=== PATIENT | male | born 1950 | race Caucasian/White ===

== ENCOUNTER → 2021-11-08 | Outpatient (CLI) | payer MEDICARE, OTHER ==
[~2021-11-08] VITALS: Ht 175.3 cm; Wt 93.6 kg
== END ==
LOC: PREOP 11:18
PROVIDERS: ATTEND Surgery
DX: Z01.818 Encounter for other preprocedural examination (principal)

== ENCOUNTER 2021-11-16 06:54 | Day surgery (SDC) | payer MEDICARE, OTHER ==
[~2021-11-16] VITALS: Ht 175 cm; Wt 93.6 kg
[2021-11-16] VITALS (11 sets, daily range): BP systolic 106–153; BP diastolic 63–82
[2021-11-16] MEDS ORDERED: ceFAZolin 2 GM IV Premixed 50 ML IV ONE (07:30)
[2021-11-16] MEDS: LACTATED RINGERS 1,000 ML IV PRN ×2 (07:47→09:02)
--- NOTE | 2021-11-16 07:47 | Progress Note-Pre Operative ---
Pre-Operative Progress Note H&P Reviewed The H&P was reviewed, patient examined and no changes noted. Date Seen by Provider: Nov 16, 2021 Time Seen by Provider: 07:47 Date H&P Reviewed: Nov 16, 2021 Time H&P Reviewed: 07:47 Pre-Operative Diagnosis: left inguinal hernia WILFREDO MINOR DO Nov 16, 2021 07:47
[2021-11-16] MEDS ORDERED: LIDOCAINE/EPI 2% 1:100,00 (XYLOCAINE) 20 ML VIAL ONE (08:09)
[2021-11-16] MEDS ORDERED: LIDOCAINE PF 2% 5 ML (XYLOCAINE) VIAL ONE (08:43)
[2021-11-16] MEDS ORDERED: ONDANSETRON 4 MG/2 ML (SDV) Z0FRAN ONE (08:43)
[2021-11-16] MEDS ORDERED: proPOfol 200 MG/20 ML (DIPRIVAN) VIAL IV ONE (08:43)
[2021-11-16] MEDS ORDERED: SEVOFLURANE (ULTANE) 15 ML INHAL SOLN ONE ×2 (08:43→10:03)
[2021-11-16] MEDS ORDERED: ROCURONIUM 10 MG/ML 5 ML SYRINGE IV ONE (08:43)
[2021-11-16] MEDS ORDERED: fentaNYL INJ 100 MCG/2 ML AMP ONE (08:44)
[2021-11-16] MEDS ORDERED: MIDAZOLAM 2 MG/2 ML (VERSED) VIAL ONE (08:44)
[2021-11-16] MEDS ORDERED: KETOROLAC 30 MG/ML VIAL ONE (10:02)
--- NOTE | 2021-11-16 10:12 | Progress Note-Post Operative ---
Post-Operative Progess Note Surgeon (s)/Records Management Assistant (s) Surgeon WILFREDO MINOR DO Records Management Assistant: Dr. Cali to assist in retraction dissection and closure. Pre-Operative Diagnosis left inguinal hernia Post-Operative Diagnosis left incarcerated indirect inguinal hernia Procedure & Operative Findings Date of Procedure 11/16/21 Procedure Performed/Findings PROCEDURE: Open incarcerated left inguinal hernia repair COMPLICATIONS: None. INDICATIONS: The patient is a 71, male male with a left inguinal hernia. He understands risks and benefits of procedure and wished to proceed with procedure. Consent was signed in the chart. DESCRIPTION OF PROCEDURE: The patient was taken to the operating suite, was prepped and draped in sterile fashion. Surgical pause was performed. Local anesthetic was infiltrated in the lower quadrant. Incision was made and cautery used to dissect down to the external oblique, which was then opened down through the external ring. Incarcerated sigmoid colon present through defect. The hernia sac opened and sigmoid reduced and freed from sack. The spermatic cord was then dissected around. A Carson drain was placed around it and there was no direct defect present. An indirect hernia present which was then dissected off of spermatic cord. The hernia sac was then closed using purstring 0 Vicryl and suture ligated. Using ProGrip mesh, this was secured at Hernando's ligament and then incorporated around the spermatic cord and placed under the external oblique. Hemostasis was achieved. The external oblique was then closed recreating the external ring and then the subcutaneous tissues were then reapproximated using 3-0 Vicryl and skin was then closed using 4-0 Monocryl in a subcuticular fashion. The abdomen was then washed and dried and Skin Affix was placed over the incision. The patient tolerated procedure well without any complications and taken to recovery room in stable condition. Anesthesia Type general Estimated Blood Loss Estimated blood loss (mL): minimal Specimens/Packing Specimens Removed hernia sac WILFREDO MINOR DO Nov 16, 2021 10:12
[2021-11-16] MEDS ORDERED: HYDROmorphone 2 MG/ML VIAL (DILAUDID) IV ONE (10:30)
[2021-11-16] MEDS ORDERED: ONDANSETRON 4 MG/2 ML (SDV) Z0FRAN IVP PRN (10:30)
[2021-11-16] MEDS ORDERED: DOCU-143 PO (11:15)
[2021-11-16] MEDS ORDERED: ACHD5005 PO (11:15)
--- NOTE | 2021-11-16 11:16 | Discharge Inst-Simple/Standard ---
Discharge Inst-Standard Discharge Medications New, Converted or Re-Newed RX: Transmitted to Pharmacy Patient Instructions/Follow Up Plan of Care/Instructions/FU: 2-3 weeks Mikal Activity as Tolerated: No Discharge Diet: Regular Diet Other Inst to Patient Follow up Appt: Make appointment for 2-3 weeks. Instructions: No lifting greater than 10 pounds. No strenuous activity. May shower in 24 hours, no tub bath or soaking. Use incentive spirometer at home as directed. No Smoking Skin/Wound Care: You have special glue over your incision that will fall off on it's own. Symptoms to Report: Appetite Changes, Extremity Discoloration, Numbness/Tingling, Swelling Increa sed, Bleeding Excessive, Eyesight Changes, Pain Increased, Urine Color Change, Constipation(Persistent), Fever over 101 degree F, Pain/Pressure in chest, Urinating Difficulty, Cough Up/Vomit Blood, Heart Beat Irreg/Pounding, Pain/Pressure in jaw, Vaginal Bleeding Increase, Cramps in feet or legs, Lightheadedness, Pain/Pressure in shoulder, Diarrhea(Persistent), Memory Changes Suddenly, Questions/Concerns, Weight gain consecutive days, Dizziness/Fainting, Nausea/Vomiting, Shortness of Breath, Weight gain over 2 pounds If questions or concerns contact your physician Or seek help at emergency department. WILFREDO MINOR DO Nov 16, 2021 11:16
--- NOTE | 2021-11-16 12:19 | Anesthesia-General Post-Op ---
General Patient Condition Mental Status/LOC: Same as Preop Cardiovascular: Satisfactory Nausea/Vomiting: Absent Respiratory: Satisfactory Pain: Controlled Complications: Absent Post Op Complications Complications None Follow Up Care/Instructions Patient Instructions None needed. Anesthesia/Patient Condition Patient Condition Patient is doing well, no complaints, stable vital signs, no apparent adverse anesthesia problems. No complications reported per nursing. D/C home per [facility] Criteria: Yes TYRA GARCIA CRNA Nov 16, 2021 12:19
== END 2021-11-16 12:25 | disposition home or self-care (01) ==
LOC: SDC 06:54
PROVIDERS: ATTEND Surgery
DX: K40.30 Unilateral inguinal hernia, with obstruction, without gangrene, not specified as recurrent (principal); E66.9 Obesity, unspecified; Z68.30 Body mass index [BMI] 30.0-30.9, adult
CPT/HCPCS: 49507; 87081; C1781

== ENCOUNTER 2022-01-17 05:33 | Outpatient (CLI) | payer MEDICARE, OTHER ==
[~2022-01-17] VITALS: Ht 175.3 cm; Wt 93.4 kg
[~2022-01-17 05:33] MED LIST: ACHD5005 PO; DOCU-143 PO
== END 2022-01-17 15:00 | disposition home or self-care (01) ==
LOC: PREOP 05:33
PROVIDERS: ATTEND Surgery
DX: Z01.818 Encounter for other preprocedural examination (principal)

== ENCOUNTER 2022-01-30 08:56 | Day surgery (SDC) | payer MEDICARE, OTHER ==
[~2022-01-30] VITALS: Ht 175 cm; Wt 93.4 kg
[2022-01-30] MEDS ORDERED: LACTATED RINGERS 1,000 ML IV STA (08:57)
[2022-01-30] MEDS ORDERED: LACTATED RINGERS 1,000 ML IV ONE (09:00)
--- NOTE | 2022-01-30 09:15 | Progress Note-Pre Operative ---
Pre-Operative Progress Note H&P Reviewed The H&P was reviewed, patient examined and no changes noted. Date Seen by Provider: Jan 30, 2022 Time Seen by Provider: 09:15 Date H&P Reviewed: Jan 30, 2022 Time H&P Reviewed: 09:15 Pre-Operative Diagnosis: screening colonoscopy WILFREDO MINOR DO Jan 30, 2022 09:15
[2022-01-30 09:20] VITALS: BP 132/77
[2022-01-30] MEDS ORDERED: PROPOFOL INJECTION 50 ML IV ONE (09:38)
[2022-01-30 10:10] VITALS: BP 89/54
--- NOTE | 2022-01-30 10:10 | Anesthesia-General Post-Op ---
MAC Patient Condition Mental Status/LOC: Same as Preop Cardiovascular: Satisfactory Nausea/Vomiting: Absent Respiratory: Satisfactory Pain: Controlled Complications: Absent Post Op Complications Complications None Follow Up Care/Instructions Patient Instructions None needed. Anesthesiology Discharge Order Discharge Order Patient is doing well, no complaints, stable vital signs, no apparent adverse anesthesia problems. No complications reported per nursing. VIANNEY ALFONSO CRNA Jan 30, 2022 10:10
[2022-01-30 10:15] VITALS: BP 95/56
--- NOTE | 2022-01-30 10:15 | Progress Note-Post Operative ---
Post-Operative Progess Note Surgeon (s)/Endless Steamer Tender (s) Surgeon WILFREDO MINOR DO Endless Steamer Tender: na Pre-Operative Diagnosis screening colonoscopy Post-Operative Diagnosis rectal mass, transverse and sigmoid polyp Procedure & Operative Findings Date of Procedure 01/30/22 Procedure Performed/Findings colonoscopy c hot bx polypectomy x 2 and cold biopsies of rectal mass Anesthesia Type per second grade teacher Estimated Blood Loss Estimated blood loss (mL): scant Specimens/Packing Specimens Removed colon polyps, rectal mass WILFREDO MINOR DO Jan 30, 2022 10:15
--- NOTE | 2022-01-30 10:16 | Discharge Inst-Simple/Standard ---
Discharge Inst-Standard Patient Instructions/Follow Up Plan of Care/Instructions/FU: 1 week Mikal Activity as Tolerated: Yes Discharge Diet: Regular Diet WILFREDO MINOR DO Jan 30, 2022 10:16
[2022-01-30 10:20] VITALS: BP 102/57
[2022-01-30 10:25] VITALS: BP 106/62
[2022-01-30 10:45] VITALS: BP 109/59
--- NOTE | 2022-01-30 18:22 | OPERATIVE REPORT ---
DATE OF SERVICE: 01/30/2022 PREOPERATIVE DIAGNOSIS: Screening colonoscopy. POSTOPERATIVE DIAGNOSES: Rectal mass, transverse and sigmoid colon polyp. PROCEDURES PERFORMED: Colonoscopy with hot polypectomy x2 and cold biopsies of rectal mass. SURGEON: Wilfredo Ren DO ANESTHESIA: Per QUALITY ASSURANCE SUPERVISOR. ESTIMATED BLOOD LOSS: Scant. COMPLICATIONS: None. INDICATIONS FOR PROCEDURE: The patient is a 71-year-old male needing screening colonoscopy. He understands the risks and benefits of procedure and wishes to proceed. Consent was signed in the chart. DESCRIPTION OF PROCEDURE: The patient was taken to the endoscopy suite and placed in the left lateral recumbent position. Timeout was performed. Digital rectal exam was performed and felt a rectal mass. No other polyps or ulcerations. Scope was inserted, encountering a rectal mass, nonobstructing. Scope was inserted through the rectum into the sigmoid and advanced all the way to the cecum without difficulty. There were no polyps, masses or ulcerations in the cecum. Scope was then slowly retracted back. Prep was adequate. Scope was then slowly retracted back. No polyps, masses or ulcerations in the cecum and ascending colon. In the transverse colon, a small polyp was present, which hot biopsy polypectomy was performed. Scope was continuously and slowly retracted back noting no other polyps, masses or ulcerations within the transverse, descending colon. In the sigmoid colon, another small polyp was present, which hot biopsy polypectomy was performed. Scope was continuously and slowly retracted back into the rectum, where the mass was present. Multiple cold biopsies were obtained. No other pathology noted. Scope was then slowly retracted back until completely removed. The patient tolerated the procedure well without any complications and was taken to the recovery room in stable condition. RECOMMENDATIONS: The patient will need to follow up on pathology. If not demonstrating cancer, we would repeat flex sig and obtained more biopsies. We will also need further management. A repeat colonoscopy per screening guidelines for cancer will likely be one year postop. Job ID: [id number] DocumentID: [id number] Dictated Date: 01/30/2022 10:19:29 Consulting Sme Date: 01/30/2022 18:21:53 Dictated By: WILFREDO REN DO
== END 2022-01-30 10:51 | disposition home or self-care (01) ==
LOC: ENDO 08:56
PROVIDERS: ATTEND Surgery
DX: Z12.11 Encounter for screening for malignant neoplasm of colon (principal); D12.3 Benign neoplasm of transverse colon; D12.5 Benign neoplasm of sigmoid colon; K62.89 Other specified diseases of anus and rectum
CPT/HCPCS: 88305

== ENCOUNTER 2022-02-15 11:37 | Outpatient (CLI) | payer MEDICARE, OTHER ==
[~2022-02-15] VITALS: Ht 172.7 cm; Wt 91.6 kg
== END 2022-02-15 13:47 | disposition home or self-care (01) ==
LOC: PREOP 11:37
PROVIDERS: ATTEND Surgery
DX: Z01.818 Encounter for other preprocedural examination (principal)

== ENCOUNTER 2022-02-22 07:48 | Day surgery (SDC) | payer MEDICARE, OTHER ==
[~2022-02-22] VITALS: Ht 172.7 cm; Wt 91.6 kg
[2022-02-22] MEDS ORDERED: LACTATED RINGERS 1,000 ML IV STA (07:49)
--- NOTE | 2022-02-22 08:13 | Progress Note-Pre Operative ---
Pre-Operative Progress Note H&P Reviewed The H&P was reviewed, patient examined and no changes noted. Date Seen by Provider: Feb 22, 2022 Time Seen by Provider: 07:55 Date H&P Reviewed: Feb 22, 2022 Time H&P Reviewed: 07:55 Pre-Operative Diagnosis: rectal mass, tubular adenoma WILFREDO MINOR DO Feb 22, 2022 08:13
[2022-02-22 08:15] VITALS: BP 115/65
[2022-02-22] MEDS ORDERED: proPOfol 200 MG/20 ML (DIPRIVAN) VIAL IV ONE (09:05)
--- NOTE | 2022-02-22 09:30 | Progress Note-Post Operative ---
Post-Operative Progess Note Surgeon (s)/Latex Foam Worker (s) Surgeon WILFREDO MINOR DO Latex Foam Worker: none Pre-Operative Diagnosis rectal mass, tubular adenoma Post-Operative Diagnosis Rectal mass Procedure & Operative Findings Date of Procedure 02/22/22 Procedure Performed/Findings Flexible sigmoidoscopy with cold biopsies Anesthesia Type per [facility] Estimated Blood Loss Estimated blood loss (mL): scant Specimens/Packing Specimens Removed Rectal mass biopsies WILFREDO MINOR DO Feb 22, 2022 09:30
--- NOTE | 2022-02-22 09:30 | Discharge Inst-Simple/Standard ---
Discharge Inst-Standard Patient Instructions/Follow Up Plan of Care/Instructions/FU: Follow-up 2 weeks Mikal Activity as Tolerated: Yes Discharge Diet: No Restrictions WILFREDO MINOR DO Feb 22, 2022 09:30
[2022-02-22 09:31] VITALS: BP 100/57
[2022-02-22 09:35] VITALS: BP 100/57
--- NOTE | 2022-02-22 09:44 | Anesthesia-General Post-Op ---
MAC Patient Condition Mental Status/LOC: Same as Preop Cardiovascular: Satisfactory Nausea/Vomiting: Absent Respiratory: Satisfactory Pain: Controlled Complications: Absent Post Op Complications Complications None Follow Up Care/Instructions Patient Instructions None needed. Anesthesiology Discharge Order Discharge Order Patient is doing well, no complaints, stable vital signs, no apparent adverse anesthesia problems. No complications reported per nursing. MAXIME PATE DO Feb 22, 2022 09:44
[2022-02-22 09:58] VITALS: BP 100/57
--- NOTE | 2022-02-22 16:42 | OPERATIVE REPORT ---
DATE OF SERVICE: 02/22/2022 PREOPERATIVE DIAGNOSIS: Rectal mass tubular adenoma. POSTOPERATIVE DIAGNOSIS: Rectal mass. PROCEDURE: Flexible sigmoidoscopy with cold biopsy. SURGEON: Wilfredo Ren DO ANESTHESIA: Per MDA. ESTIMATED BLOOD LOSS: Scant. COMPLICATIONS: None. INDICATIONS: The patient is a 71-year-old male with rectal mass, which biopsies demonstrate tubular adenoma, but more suspicious. He was discussed risks and benefits of having flexible sigmoidoscopy with cold biopsies for further evaluation. He understands and wishes to proceed. Consent was signed in the chart. DESCRIPTION OF PROCEDURE: The patient was taken to the endoscopy suite, placed in left lateral recumbent position. Timeout was performed. Digital rectal exam was performed with palpable rectal mass. Scope was inserted and advanced through the mass without difficulty. This was circumferential. sigmoid colon without any polyps, masses or ulcerations. Scope was slowly retracted back in the rectum where the mass was encountered. Multiple cold biopsies were obtained. Scope was then slowly retracted back to completely remove noting no other pathology. The patient tolerated the procedure well without any complications, taken to recovery room in stable condition. The patient will follow up in 2 weeks. The patient will need repeat colonoscopy depending upon biopsy results and further management. Job ID: [id number] DocumentID: [id number] Dictated Date: 02/22/2022 09:42:43 Heat And Vent Aircraft Mechanic Date: 02/22/2022 16:42:10 Dictated By: WILFREDO REN DO
== END 2022-02-22 09:59 | disposition home or self-care (01) ==
LOC: SDC 07:48
PROVIDERS: ATTEND Surgery
DX: C20 Malignant neoplasm of rectum (principal); D12.3 Benign neoplasm of transverse colon; E66.9 Obesity, unspecified; Z68.30 Body mass index [BMI] 30.0-30.9, adult

== ENCOUNTER → 2022-03-14 | Outpatient (CLI) | payer MEDICARE, OTHER ==
[~2022-03-14] MED LIST changes: +CATHETER FLUSH 10 ML SYR IV PRN; +HOLD METFORMIN - RECEIVED CONTRAST 20 ML VIAL IV SCH; +IOHEXOL 350 MG/ML 100 ML (OMNIPAQUE 350) VIAL IV ONE; +NS 100 ML (IVPB) BAG IV ONE
--- NOTE | 2022-03-14 18:27 | Diagnostic Imaging Report ---
PROCEDURE: CT of the chest and pelvis with contrast and CT of the abdomen with and without contrast. TECHNIQUE: Precontrast acquisitions were acquired through the abdomen. Multiple contiguous axial images were obtained through the chest, abdomen and pelvis after administration of intravenous contrast. Auto Exposure Controls were utilized during the CT exam to meet ALARA standards for radiation dose reduction. INDICATION: Carcinoma of the rectum. COMPARISON: None available. FINDINGS: CT CHEST: Dependent groundglass in lung bases is most likely due to atelectasis. No suspicious pulmonary nodules are present. Trace right pleural effusion. No pneumothorax. No supraclavicular or axillary lymphadenopathy. Thyroid is normal. No mediastinal or hilar lymphadenopathy. No lytic or blastic skeletal lesions. CT ABDOMEN AND PELVIS: No free intraperitoneal air or fluid. No focal hepatic lesion that would suggest metastasis. Cholelithiasis is present. There is dilation of the common bile duct measuring 1.0 cm. There are some isodense filling defects in the distal common bile duct raising possibility of choledocholithiasis. The spleen and pancreas are normal. No adrenal mass. No obstructive uropathy. Urinary bladder is decompressed with mild wall thickening. There is a circumferential mid rectal mass which has spiculations extending into the mesorectal fat. There is at least one suspicious mesorectal lymph node located at the 6 o'clock position. No other lymphadenopathy within the abdomen or pelvis. No concerning lytic or blastic skeletal lesions. Questionable filling defect within the left common femoral vein. IMPRESSION: 1. Mid rectal mass has extension beyond the muscularis propria with at least one regional metastatic lymph node in the mesorectum. 2. No features of distant metastases in the chest, abdomen or pelvis. 3. Choledocholithiasis with biliary duct dilation and potential choledocholithiasis. Correlation for right upper quadrant pain is advised 4. Possible filling defect within the left common femoral vein. Consider left lower extremity venous Doppler for further assessment. Dictated by: Dictated on workstation # [id number]
== END ==
LOC: RAD 11:02
PROVIDERS: ATTEND Internal Medicine Hematology & Oncology
DX: C20 Malignant neoplasm of rectum (principal); K80.50 Calculus of bile duct without cholangitis or cholecystitis without obstruction
CPT/HCPCS: 71260; 74178

== ENCOUNTER → 2022-03-27 | Outpatient (CLI) | payer MEDICARE, OTHER ==
[~2022-03-27] MED LIST changes: -CATHETER FLUSH 10 ML SYR IV PRN; +GADOTERATE 0.5 MMOL/ML (CLARISCAN) 20 ML VIAL IV ONE; -HOLD METFORMIN - RECEIVED CONTRAST 20 ML VIAL IV SCH; -IOHEXOL 350 MG/ML 100 ML (OMNIPAQUE 350) VIAL IV ONE; -NS 100 ML (IVPB) BAG IV ONE
--- NOTE | 2022-03-27 15:23 | Diagnostic Imaging Report ---
EXAMINATION: MRI pelvis with and without contrast. TECHNIQUE: Multiplanar, multisequence MRI of the pelvis was performed with and without contrast according to rectal staging protocol. HISTORY: Rectal cancer staging. FINDINGS: Overall image quality: Adequate Tumor location and morphology: Tumor location: Mid rectum (5.1-10 cm) Distance of inferior border of tumor to anal verge: 7.5 cm Distance of inferior border of tumor to anorectal junction: 5 cm Craniocaudal length: 5.5 cm Circumferential location: Complete circumferential involvement of the rectum. Morphology: (semi-)circumferential Mucinous: no T-category: T3c (5-15 mm invasion beyond the muscularis propria) Structures invaded: At the 6 clock position, there is 7 mm of spiculated tumor invading into the mesorectal fat, beyond the muscularis propria. Involvement of sphincter complex: no CRM (for T3 only): Shortest distance to CRM: 16 mm Separate tumor deposit, suspicious lymph node or EMVI threating (<2 mm) or invading (<1 mm) the CRM: No. The closest lymph node at the 6 o'clock position measures 5 mm from the mesial rectal fascia. N-category: N1b (2-3 abnormal lymph nodes) between 5 and 9 mm with two of: irregular borders, heterogenous signal, and round shape Suspicious mesorectal lymph nodes and/or tumor deposits: At the 6 o'clock position at the inferior aspect tumor, there is an 8 mm round lymph node within the mesial rectal fat. Along the superior rectal vein, there is a 6 mm rounded lymph node located at the cranial aspect of the tumor. Number of suspicious lymph nodes: 2 Distance from tumor deposit to CRM: 5 mm Extra-mesorectal fascia lymph nodes: No Other findings: Stranding and edema within the subcutaneous fat at the level of the left inguinal canal is likely from hernia repair. IMPRESSION: 1. Mid rectal tumor has invasion beyond the muscularis propria (T3C). 2. There are 2 suspicious mesorectal regional lymph nodes (N1B). Dictated by: Dictated on workstation # [id number]
== END ==
LOC: RAD 09:47
PROVIDERS: ATTEND Internal Medicine Hematology & Oncology
DX: C20 Malignant neoplasm of rectum (principal)
CPT/HCPCS: 72197

== ENCOUNTER 2022-04-04 09:20 | Outpatient (RCR) | payer MEDICARE, OTHER ==
[2022-03-13 11:37] LABS: BASOPHILS # (AUTO) 0.1 10^3/uL (0.0-0.1); BASOPHILS % (AUTO) 1 % (0-10); EOSINOPHILS # (AUTO) 0.1 10^3/uL (0.0-0.3); EOSINOPHILS % (AUTO) 2 % (0-10); HEMATOCRIT 38 % (40-54); HEMOGLOBIN 12.2 g/dL (13.3-17.7); LYMPHOCYTES # (AUTO) 1.5 10^3/uL (1.0-4.0); LYMPHOCYTES % (AUTO) 27 % (12-44); MEAN CORPUSCULAR HEMOGLOBIN 28 pg (25-34); MEAN CORPUSCULAR HGB CONC 32 g/dL (32-36); MEAN CORPUSCULAR VOLUME 86 fL (80-99); MONOCYTES # (AUTO) 0.6 10^3/uL (0.0-1.0); MONOCYTES % (AUTO) 10 % (0-12); NEUTROPHILS # (AUTO) 3.2 10^3/uL (1.8-7.8); NEUTROPHILS % (AUTO) 60 % (42-75); PLATELET COUNT 209 10^3/uL (130-400); WHITE BLOOD COUNT 5.4 10^3/uL (4.3-11.0)
[2022-03-13 12:07] LABS: ALBUMIN 3.7 GM/DL (3.2-4.5); BILIRUBIN,TOTAL 0.6 MG/DL (0.1-1.0); CREATININE SERUM 1.14 MG/DL (0.60-1.30); POTASSIUM 3.7 MMOL/L (3.6-5.0); TOTAL PROTEIN 7.2 GM/DL (6.4-8.2)
[~2022-04-04 09:20] MED LIST changes: -GADOTERATE 0.5 MMOL/ML (CLARISCAN) 20 ML VIAL IV ONE
== END 2022-04-11 | disposition home or self-care (01) ==
LOC: ONC 09:20
PROVIDERS: ATTEND Internal Medicine Hematology & Oncology
DX: Z51.0 Encounter for antineoplastic radiation therapy (principal); C20 Malignant neoplasm of rectum
CPT/HCPCS: 80053; 82378; 85025; G0463; 36415; 77290; 77300; 77301; 77334; 77338; 77470; 99204; 99213

== ENCOUNTER → 2022-05-11 | Outpatient (RCR) | payer MEDICARE, OTHER | END | disposition home or self-care (01) | LOC: ONC 04-24 14:07 | PROVIDERS: ATTEND Internal Medicine Hematology & Oncology | DX: Z51.0 Encounter for antineoplastic radiation therapy (principal); C20 Malignant neoplasm of rectum | CPT/HCPCS: 77336; 77385; 77386; 99213 ==

== ENCOUNTER 2022-06-06 09:06 | Outpatient (RCR) | payer MEDICARE, OTHER ==
[2022-05-22 10:07] LABS: BASOPHILS % (AUTO) 1 % (0-10); EOSINOPHILS # (AUTO) 0.1 10^3/uL (0.0-0.3); EOSINOPHILS % (AUTO) 3 % (0-10); HEMATOCRIT 39 % (40-54); HEMOGLOBIN 12.7 g/dL (13.3-17.7); LYMPHOCYTES # (AUTO) 0.4 10^3/uL (1.0-4.0); LYMPHOCYTES % (AUTO) 12 % (12-44); MEAN CORPUSCULAR HEMOGLOBIN 29 pg (25-34); MEAN CORPUSCULAR HGB CONC 33 g/dL (32-36); MEAN CORPUSCULAR VOLUME 88 fL (80-99); MEAN PLATELET VOLUME 9.3 fL (9.0-12.2); MONOCYTES # (AUTO) 0.4 10^3/uL (0.0-1.0); MONOCYTES % (AUTO) 12 % (0-12); NEUTROPHILS # (AUTO) 2.4 10^3/uL (1.8-7.8); NEUTROPHILS % (AUTO) 73 % (42-75); PLATELET COUNT 164 10^3/uL (130-400); WHITE BLOOD COUNT 3.3 10^3/uL (4.3-11.0)
[2022-05-22 10:34] LABS: ALBUMIN 3.7 GM/DL (3.2-4.5); BILIRUBIN,TOTAL 0.9 MG/DL (0.1-1.0); CALCIUM 9.3 MG/DL (8.5-10.1); CREATININE SERUM 1.13 MG/DL (0.60-1.30); POTASSIUM 3.4 MMOL/L (3.6-5.0); TOTAL PROTEIN 7.3 GM/DL (6.4-8.2)
[2022-06-06 09:43] LABS: BASOPHILS % (AUTO) 1 % (0-10); EOSINOPHILS # (AUTO) 0.1 10^3/uL (0.0-0.3); EOSINOPHILS % (AUTO) 4 % (0-10); HEMATOCRIT 37 % (40-54); HEMOGLOBIN 12.4 g/dL (13.3-17.7); LYMPHOCYTES # (AUTO) 0.4 10^3/uL (1.0-4.0); LYMPHOCYTES % (AUTO) 10 % (12-44); MEAN CORPUSCULAR HEMOGLOBIN 30 pg (25-34); MEAN CORPUSCULAR HGB CONC 33 g/dL (32-36); MEAN CORPUSCULAR VOLUME 90 fL (80-99); MEAN PLATELET VOLUME 9.3 fL (9.0-12.2); MONOCYTES # (AUTO) 0.5 10^3/uL (0.0-1.0); MONOCYTES % (AUTO) 13 % (0-12); NEUTROPHILS # (AUTO) 2.7 10^3/uL (1.8-7.8); NEUTROPHILS % (AUTO) 73 % (42-75); PLATELET COUNT 164 10^3/uL (130-400); WHITE BLOOD COUNT 3.7 10^3/uL (4.3-11.0)
[2022-06-06 10:02] LABS: ALBUMIN 3.6 GM/DL (3.2-4.5); BILIRUBIN,TOTAL 0.7 MG/DL (0.1-1.0); CALCIUM 9.3 MG/DL (8.5-10.1); POTASSIUM 3.8 MMOL/L (3.6-5.0); TOTAL PROTEIN 7.6 GM/DL (6.4-8.2)
== END 2022-06-11 | disposition home or self-care (01) ==
LOC: ONC 09:06
PROVIDERS: ATTEND Internal Medicine Hematology & Oncology
DX: Z51.0 Encounter for antineoplastic radiation therapy (principal); C20 Malignant neoplasm of rectum
CPT/HCPCS: 36415; 77336; 77385; 77386; 80053; 85025; 99213

== ENCOUNTER → 2022-06-11 | Outpatient (CLI) | payer MEDICARE, OTHER ==
[~2022-06-11] MED LIST changes: +CATHETER FLUSH 10 ML SYR IV PRN; +HOLD METFORMIN - RECEIVED CONTRAST 20 ML VIAL IV SCH; +IOHEXOL 350 MG/ML 100 ML (OMNIPAQUE 350) VIAL IV ONE; +NS 100 ML (IVPB) BAG IV ONE
--- NOTE | 2022-06-11 15:55 | Diagnostic Imaging Report ---
INDICATION: Colon cancer. TECHNIQUE: Multiple contiguous axial images were obtained through the chest, abdomen, and pelvis after the administration of intravenous contrast. Auto Exposure Controls were utilized during the CT exam to meet ALARA standards for radiation dose reduction. COMPARISON: CT chest, abdomen, and pelvis of 03/14/2022. FINDINGS: CT CHEST: There are no enlarged mediastinal or hilar nodes. There are no enlarged axillary nodes or chest wall lesions. There is no pleural or pericardial fluid. Bone windows in the chest show no acute finding. Lung parenchymal windows demonstrate some scarring or atelectasis in the right upper lobe. There is no suspicious pulmonary parenchymal nodule. There is some scarring or atelectasis in the right lower lobe. CT ABDOMEN/PELVIS: The liver shows mild diffuse low-density change, compatible with fatty infiltration. There is no focal liver lesion. The gallbladder appears partially contracted with a prominent stone in the gallbladder, consider ultrasound for further evaluation. The spleen, adrenals, and pancreas appear normal. The kidneys bilaterally are unremarkable. There is no periaortic adenopathy. There is no sign of bowel obstruction or focal lesion otherwise seen. There is some questionable rectal wall thickening which may be artifactual due to underdistention. The mildly enlarged lymph node posteriorly seen on the previous study in the presacral region has decreased in size. IMPRESSION: CT CHEST: There are some areas of parenchymal scarring in the right lung but no evidence of metastatic disease in the chest. CT ABDOMEN/PELVIS: There is some questionable rectal wall thickening versus artifact from underdistention. The mildly prominent node in the presacral space seen on the prior study appears to be decreased in size. No findings suspicious for metastatic disease are seen elsewhere in the abdomen or pelvis. There is mild fatty infiltration of the liver. There is cholelithiasis, consider ultrasound for further evaluation as warranted. Dictated by: Dictated on workstation # [id number]
== END ==
LOC: RAD 13:33
PROVIDERS: ATTEND Internal Medicine Hematology & Oncology
DX: C20 Malignant neoplasm of rectum (principal); J98.4 Other disorders of lung; K76.0 Fatty (change of) liver, not elsewhere classified; K80.20 Calculus of gallbladder without cholecystitis without obstruction
CPT/HCPCS: 71260; 74177

== ENCOUNTER → 2022-06-13 | Outpatient (CLI) | payer MEDICARE, OTHER ==
[~2022-06-13] MED LIST changes: -CATHETER FLUSH 10 ML SYR IV PRN; +GADOTERATE 0.5 MMOL/ML (CLARISCAN) 20 ML VIAL IV ONE; -HOLD METFORMIN - RECEIVED CONTRAST 20 ML VIAL IV SCH; -IOHEXOL 350 MG/ML 100 ML (OMNIPAQUE 350) VIAL IV ONE; -NS 100 ML (IVPB) BAG IV ONE
--- NOTE | 2022-06-13 16:55 | Diagnostic Imaging Report ---
PROCEDURE: MRI pelvis with and without contrast. TECHNIQUE: Multiplanar, multisequence MRI of the pelvis was performed with and without contrast. INDICATION: Rectal cancer status post radiation therapy. COMPARISON: 03/27/2022. FINDINGS: There is wall thickening in the mid rectum. It is decreased from prior exam. Previously measuring 15 mm, now 7 mm. There is persistent diffusion restriction in the rectum but decreased from prior exam, now only at the top margin of the tumor rather than diffusely throughout. The perirectal lymphadenopathy has improved. The largest node now measures 4 mm, previously 9 mm. No new disease is seen. There is a left inguinal hernia, similar to prior exam. Bladder is decompressed. There are no osseous lesions. No free fluid. No new lymphadenopathy. IMPRESSION: 1. Persistent mid rectal tumor but decrease in bulk with resolution of previously seen perirectal lymphadenopathy. Dictated by: Dictated on workstation # [id number]
== END ==
LOC: RAD 14:45
PROVIDERS: ATTEND Internal Medicine Hematology & Oncology
DX: C20 Malignant neoplasm of rectum (principal); Z92.3 Personal history of irradiation
CPT/HCPCS: 72197

== ENCOUNTER 2022-07-18 05:29 | Outpatient (CLI) | payer MEDICARE, OTHER ==
[~2022-07-18] VITALS: Ht 175.6 cm; Wt 86.0 kg
[~2022-07-18 05:29] MED LIST changes: -GADOTERATE 0.5 MMOL/ML (CLARISCAN) 20 ML VIAL IV ONE
== END 2022-07-20 14:24 | disposition home or self-care (01) ==
LOC: PREOP 05:29
PROVIDERS: ATTEND Surgery
DX: Z01.818 Encounter for other preprocedural examination (principal)

== ENCOUNTER 2022-07-25 08:00 | Inpatient (IN) | payer MEDICARE, OTHER ==
[2022-07-25] VITALS (12 sets, daily range): BP systolic 103–140; BP diastolic 48–67
[~2022-07-25] VITALS: Ht 175.6 cm; Wt 91.5 kg
[2022-07-25] MEDS ORDERED: NEOSTIGMINE 3 MG/3 ML VIAL ONE (10:02)
[2022-07-25] MEDS ORDERED: LIDOCAINE PF 2% 5 ML (XYLOCAINE) VIAL ONE (10:02)
[2022-07-25] MEDS ORDERED: GLYCOPYRROLATE 0.2 MG/ML (ROBINUL) 2 ML VIAL ONE (10:02)
[2022-07-25] MEDS ORDERED: ROCURONIUM 10 MG/ML 5 ML SYRINGE IV ONE ×3 (10:02→15:04)
[2022-07-25] MEDS ORDERED: proPOfol 200 MG/20 ML (DIPRIVAN) VIAL IV ONE (10:02)
[2022-07-25] MEDS ORDERED: fentaNYL INJ 100 MCG/2 ML AMP ONE (10:02)
[2022-07-25] MEDS ORDERED: ONDANSETRON 4 MG/2 ML (SDV) Z0FRAN ONE (10:02)
[2022-07-25] MEDS ORDERED: BUP/EPI 0.25% 1:200,000 (MARCAINE) 30 ML VIAL ONE (10:59)
[2022-07-25] MEDS ORDERED: metroNIDAZOLE 500MG/100ML IVPB 100 ML IV ONE (11:00)
[2022-07-25] MEDS: LACTATED RINGERS 1,000 ML IV PRN ×3 (11:00→16:05)
[2022-07-25] MEDS ORDERED: ceFAZolin INJECTION 2,000 MG in NS (IVPB) 50 ML IV ONE (11:00)
--- NOTE | 2022-07-25 11:15 | Progress Note-Pre Operative ---
Pre-Operative Progress Note Date of Available H&P: Jun 27, 2022 Date H&P Reviewed: Jul 25, 2022 Time H&P Reviewed: 11:14 History & Physical: H&P Reviewed, Patient Examed, No changes noted Pre-Operative Diagnosis: adenocarcinoma rectum WILFREDO MINOR DO Jul 25, 2022 11:15
[2022-07-25] MEDS ORDERED: BUP/EPI 0.25% 1:200,000 (MARCAINE) 30 ML VIAL INJ ONE (12:47)
[2022-07-25] MEDS ORDERED: PHENYLEPHRINE 100 MCG/ML 10 ML (ANESTHESIA) SYR ONE (14:19)
[2022-07-25] MEDS ORDERED: HYDROmorphone 2 MG/ML VIAL (DILAUDID) ONE (14:31)
[2022-07-25] MEDS ORDERED: ceFAZolin INJECTION 2,000 MG ONE (15:47)
[2022-07-25] MEDS ORDERED: ceFAZolin INJECTION 2,000 MG VIAL IV ONE (15:49)
[2022-07-25] MEDS ORDERED: ROPIVACAINE 5MG/ML 30ML VIAL ONE (16:12)
[2022-07-25] MEDS ORDERED: SUGAMMADEX 500 MG/5 ML VIAL (BRIDION) IV ONE (16:32)
[2022-07-25] MEDS ORDERED: ONDANSETRON 4 MG/2 ML (SDV) Z0FRAN IVP PRN ×2 (16:45→17:15)
[2022-07-25] MEDS ORDERED: SEVOFLURANE (ULTANE) 15 ML INHAL SOLN ONE (16:55)
[2022-07-25] MEDS ORDERED: HYDROmorphone 2 MG/ML VIAL (DILAUDID) IV ONE (17:15)
[2022-07-25] MEDS: LACTATED RINGERS 1,000 ML IV SCH (18:31)
[2022-07-25] MEDS ORDERED: RT-ALBUTEROL SULF 2.5 MG/3 ML PRE-MIX VIAL INH PRN (20:00)
[2022-07-25] MEDS ORDERED: ceFAZolin INJECTION 1,000 MG VIAL IV SCH (22:00)
[2022-07-25] MEDS: ceFAZolin INJECTION 2,000 MG in NS (IVPB) 50 ML IV SCH (22:30)
[2022-07-25] MEDS: metroNIDAZOLE 500MG/100ML IVPB 100 ML IV SCH (22:34)
[2022-07-26 03:15] VITALS: BP 114/58
[2022-07-26] MEDS: metroNIDAZOLE 500MG/100ML IVPB 100 ML IV SCH (05:03)
--- NOTE | 2022-07-26 05:38 | OPERATIVE REPORT ---
DATE OF SERVICE: 07/25/2022 PREOPERATIVE DIAGNOSIS: Adenocarcinoma of the rectum. POSTOPERATIVE DIAGNOSIS: Adenocarcinoma of the rectum. PROCEDURE: Laparoscopic hand-assisted low anterior resection with end colostomy. SURGEON: Erwin Ren DO ANTIQUE CLOCKS REPAIRER: Dr. Cali to assist in retraction, dissection, and closure. ANESTHESIA: General. ESTIMATED BLOOD LOSS: 300 mL. COMPLICATIONS: None. INDICATIONS: The patient is a 72-year-old male with adenocarcinoma of the rectum. He has already had radiation and was recommended to have surgical intervention. The patient understands the risks and benefits of procedure and wishes to proceed. Consent was signed in chart. DESCRIPTION OF PROCEDURE: The patient was taken to the operating suite, placed in lithotomy position. Timeout was performed. Local anesthetic was infiltrated in the midline. A 15 blade scalpel was used to make a skin incision just around the umbilicus inferiorly for a hand port. Cautery was used to dissect down through the subcutaneous tissues and the abdomen was then entered. Once had a big enough opening for the hand port, a 12 mm trocar was placed in the right lower quadrant under direct visualization. The abdomen was then insufflated. Scope was inserted. Another 12 mm trocar was placed in the left lower quadrant. Multiple adhesions to the left lower quadrant present. These were then taken down with spatula cautery. The rectum was then grasped and elevated using the spatula lateral to the cord on both right and left side. This was began to be mobilized. The mass was distal and palpable. The patient had a really small diameter pelvis. The rectum was then elevated and retracted back. I then divide the mesentery to the rectum and continue to work distally. Continued to work distally until the mass was palpated and go distal to this area and the tissue in the pelvis felt more fibrotic. LigaSure was also used to continue to divide the mesentery downwards. Due to the narrow pelvis and to assist with the dissection earlier, a 5 mm trocar was inserted in the right lower quadrant. Due to the mass being more distal, the Gel port was then removed. The midline incision was extended inferiorly and we attempted to place a contour stapler around it. Due to the pelvis being narrow that the stapler was unable to get around the colon at this point. Therefore, we had to use a linear stapler retracting the rectum up superiorly. Continued to have difficulty getting this close due to the thickness of the tissue. We continued to skeletonize inferiorly, but could not get to staple closed completely. Fired 2 staple lines across the rectum but not able to get completely removed. At this point, we retracted upwards and had to use curved Beasley scissors to cut distal to colon distal to the tumor. removing the specimen. The distal portion retracted back to where could not see the distal portion remaining. The sigmoid colon was then mobilized along the white line of Toldt. The sigmoid colon was then dissected around and a linear GLORIA stapler was fired across it. LigaSure was used to divide the mesentery removing the specimen. At this time, the abdomen was irrigated with copious amounts of irrigation. Hemostasis was achieved. On the left lower quadrant, a skin incision was made for colostomy due to inability to reanastomose the colon. The skin and subcutaneous tissues were removed. The fascia was then scored in a cruciate fashion, the muscle was divided bluntly. The posterior fascia was then scored and dilated to 2 fingers. The end of the sigmoid was then brought up through this area. The abdomen was then closed using a 19 Mateus drain was placed and brought out through the 5 mm trocar site and secured with a silk suture. The midline incision fascia was then closed using #1 looped PDS. Wound was irrigated and the skin was then closed with arpita. All the other trocar sites were closed with arpita as above. The colostomy was then matured with 3-0 Vicryl suture. Colostomy appliance applied and sterile bandages applied. The patient tolerated the procedure well and was taken to recovery room in stable condition. Job ID: [id number] DocumentID: [id number] Dictated Date: 07/25/2022 23:26:53 Director Of Vocational Guidance Date: 07/26/2022 05:16:00 Dictated By: DO EDITA DE LA FUENTE
[2022-07-26 06:11] LABS: HEMATOCRIT 32 % (40-54); HEMOGLOBIN 10.5 g/dL (13.3-17.7); MEAN CORPUSCULAR HEMOGLOBIN 30 pg (25-34); MEAN CORPUSCULAR HGB CONC 33 g/dL (32-36); MEAN CORPUSCULAR VOLUME 92 fL (80-99); MEAN PLATELET VOLUME 9.8 fL (9.0-12.2); PLATELET COUNT 238 10^3/uL (130-400); WHITE BLOOD COUNT 8.7 10^3/uL (4.3-11.0)
[2022-07-26 06:25] LABS: ALBUMIN 2.9 GM/DL (3.2-4.5); POTASSIUM 3.9 MMOL/L (3.6-5.0)
[2022-07-26 06:26] LABS: CALCIUM 8.6 MG/DL (8.5-10.1)
[2022-07-26 06:28] LABS: TOTAL PROTEIN 6.3 GM/DL (6.4-8.2)
[2022-07-26 06:29] LABS: BILIRUBIN,TOTAL 0.8 MG/DL (0.1-1.0)
[2022-07-26 06:31] LABS: CREATININE SERUM 1.06 MG/DL (0.60-1.30)
[2022-07-26 06:34] LABS: MAGNESIUM 1.6 MG/DL (1.6-2.4)
[2022-07-26] MEDS: LACTATED RINGERS 1,000 ML IV SCH ×3 (06:49→17:51)
[2022-07-26] MEDS: ceFAZolin INJECTION 2,000 MG in NS (IVPB) 50 ML IV SCH (06:49)
[2022-07-26 07:34] VITALS: BP 104/55
--- NOTE | 2022-07-26 07:54 | Consultation - Hospitalist ---
HPI History of Present Illness: HPI/Chief Complaint Chief complaint: Medical management following partial colon resection HPI: This is a 72-year-old male who is status post partial colon resection due to colon cancer status postchemotherapy and radiation. Patient feels much better today pain is controlled. Physical therapy ordered. Denies any nausea. Pain around pretty well. Source: patient Exam Limitations: no limitations Date Seen 07/26/22 Attending Physician No,Local Physician PCP Admitting Physician: Erwin Ren DO Attending Physician: Erwin Ren DO Referring Physician Date of Admission Jul 25, 2022 at 09:51 Home Medications & Allergies Home Medications Reviewed patient Home Medication Reconciliation performed by pharmacy medication reconciliations system support technician and/or nursing. Patients Allergies have been reviewed. Allergies Allergies Coded Allergies No Known Drug Allergies (Evppiuujpj37/9/22) Past Pepxzwr-Xqybcs-Hitwom Hx Patient Social History Marrital Status: single Employed/Student: retired Smoking Status: Former Smoker Immunizations Up To Date First/Initial COVID19 Vaccinat: 2020 Second COVID19 Vaccination Derian: 2020 Seasonal Allergies Seasonal Allergies: No Past Medical History Surgeries: Adenoidectomy, Tonsillectomy Heart Murmur Prostate Problems Hearing Impairment: Hard of Hearing Colon What Type of Treatment Did You: Radiation, Surgical Intervention Recent Skin Changes Blood Disorders: No Adverse Reaction/Blood Tranf: No Review of Systems Constitutional: see HPI, malaise, weakness Gastrointestinal: abdominal pain, loss of appetite Physical Exam Physical Exam Vital Signs Vital Signs - First Documented 07/25/22 07/25/22 10:00 19:46 Temp 36.8 Pulse 61 Resp 18 B/P (MAP) 128/66 (86) Pulse Ox 99 O2 Delivery Room Air FiO2 21 Capillary Refill : Height, Weight, BMI Height: '" Weight: lbs. oz. kg; 27.89 BMI Method: General Appearance: No Apparent Distress, WD/WN, Chronically ill Eyes: Bilateral Eye Normal Inspection, Bilateral Eye PERRL HEENT: PERRL/EOMI, Normal ENT Inspection, Pharynx Normal Neck: Full Range of Motion, Normal Inspection, Non Tender, Supple, Carotid Bruit Respiratory: Chest Non Tender, Lungs Clear, Normal Breath Sounds, No Accessory Muscle Use, No Respiratory Distress Cardiovascular: Regular Rate, Rhythm, No Edema, No Gallop, No JVD, No Murmur, Normal Peripheral Pulses Gastrointestinal: No Organomegaly, No Pulsatile Mass, Abnormal Bowel Sounds Back: Normal Inspection, No CVA Tenderness, No Vertebral Tenderness Extremity: Normal Capillary Refill, Normal Inspection, Normal Range of Motion, Non Tender, No Calf Tenderness, No Pedal Edema Neurologic/Psychiatric: Alert, Oriented x3, No Motor/Sensory Deficits, Normal Mood/Affect Skin: Normal Color, Warm/Dry Lymphatic: No Adenopathy Results Results/Procedures Labs Laboratory Tests 07/26/22 05:50 Patient resulted labs reviewed. Assessment/Plan Assessment and Plan Assess & Plan/Chief Complaint Assessment: Status post partial colon resection for colon cancer and placement of colostomy now postop ileus Abdominal pain Debility Plan: Supportive care Pain control Therapy KHADIJAH BOSS DO Jul 26, 2022 07:54
--- NOTE | 2022-07-26 08:00 | Progress Note - Surgery ---
JULISA MOREL 07/26/22 0800: Subjective Date Seen by a Provider: Jul 26, 2022 Subjective/Events-last exam Yaritza Pope is a 72yo male who underwent a Laproscopic hand-assissted low anterior resection with colostomy 07/25/22 due to adenocarcinoma of rectum. Previously received radiation before surgery. Patient was sitting up in bed sleeping before interview. Per nurse, pt is alert and wouldn't like anything for pain although abdomen is painful. Upon waking up for interview, Pt was alert and oriented. Pt states abdomen pain is about 5/10 when moving and 0/10 at rest. Do esn't have any concerns currently. Pt's EMILY is draining, but there is no output on ostemy. Good urine output. Pt's incisions looks are healing well and are intact. Pt denies fever, chills, chest pain, palpitations, swelling, and numbness and tingling. Review of Systems General: No Chills Cardiovascular: No: Chest Pain, Palpitations, Edema Gastrointestinal: No: Nausea, Vomiting Neurological: No: Numbness, Confusion Objective Exam Vital Signs Date Time Temp Pulse Resp B/P (MAP) Pulse Ox O2 Delivery O2 Flow Rate FiO2 07/26/22 07:34 37.1 83 16 104/55 (71) 95 Room Air 07/26/22 03:15 36.6 76 18 114/58 (76) 92 Room Air 07/25/22 23:11 36.7 75 18 122/64 (83) 94 Room Air 07/25/22 20:00 36.1 78 18 140/67 (91) 95 Room Air 07/25/22 19:46 36.1 78 95 21 07/25/22 19:20 36.1 78 18 140/67 (91) 95 Room Air 07/25/22 18:17 36.3 74 16 117/58 (77) 92 Room Air 07/25/22 17:55 Room Air 07/25/22 17:45 Room Air 07/25/22 17:43 36.3 12 111/60 (77) 96 Room Air 07/25/22 17:39 13 112/59 (76) 95 Room Air 07/25/22 17:30 OxyMask 10.00 07/25/22 17:29 14 112/58 (76) 100 OxyMask 10.00 07/25/22 17:19 12 108/48 (68) 100 OxyMask 10.00 07/25/22 17:15 OxyMask 10.00 07/25/22 17:09 13 116/54 (74) 100 OxyMask 10.00 07/25/22 16:59 36.7 20 103/60 (74) 98 OxyMask 10.00 07/25/22 16:59 OxyMask 10.00 07/25/22 10:00 36.8 61 18 128/66 (86) 99 Room Air I & O 07/26/22 07:00 Intake Total 2150 ml Output Total 460 ml Balance 1690 ml Capillary Refill : General Appearance: No Apparent Distress HEENT: PERRL/EOMI Neck: Non Tender, Supple Respiratory: Chest Non Tender, Lungs Clear, Normal Breath Sounds, No Accessory Muscle Use Cardiovascular: Regular Rate, Rhythm, No Edema, No Gallop, No Murmur Peripheral Pulses: 2+ Radial Pulses (R), 2+ Radial Pulses (L) Gastrointestinal: tenderness Extremity: Normal Inspection, Non Tender, No Calf Tenderness, No Pedal Edema Neurologic/Psychiatric: Alert, Oriented x3 Skin: Normal Color, Warm/Dry Lymphatic: No Adenopathy Results Lab Laboratory Tests 07/26/22 05:50: White Blood Count 8.7, Red Blood Count 3.51L, Hemoglobin 10.5L, Hematocrit 32L, Mean Corpuscular Volume 92, Mean Corpuscular Hemoglobin 30, Mean Corpuscular Hemoglobin Concent 33, Red Cell Distribution Width 16.6H, Platelet Count 238, Mean Platelet Volume 9.8, Sodium Level 137, Potassium Level 3.9, Chloride Level 106, Carbon Dioxide Level 23, Anion Gap 8, Blood Urea Nitrogen 11, Creatinine 1.06, Estimat Glomerular Filtration Rate 74, BUN/Creatinine Ratio 10, Glucose Level 144H, Calcium Level 8.6, Corrected Calcium 9.5, Magnesium Level 1.6, Total Bilirubin 0.8, Aspartate Amino Transf (AST/SGOT) 21, Alanine Aminotransferase (ALT/SGPT) 14, Alkaline Phosphatase 83, Total Protein 6.3L, Albumin 2.9L Assessment/Plan Assessment/Plan Assessment/Plan Post-operative Low anterior resection w/ End Colostomy Low Hemoglobin Continue to monitor Colostomy Monitor Hemoglobin until normal Supportive Care and manage pain medications Ambulate WILFREDO MINOR DO 07/26/222043: Subjective Subjective/Events-last exam Pain controlled. Sitting in chair. No bowel function from colostomy. Drain serosang. Urine yellow. Using IS. Tolerating clears. Denies n/v fever sweats chills shortness of breath or chest pain. Objective Exam General Appearance: No Apparent Distress, Chronically ill HEENT: PERRL/EOMI, Normal ENT Inspection Neck: Non Tender, Supple Respiratory: Chest Non Tender, No Accessory Muscle Use, No Respiratory Distress Cardiovascular: Regular Rate, Rhythm, No JVD Gastrointestinal: soft, tenderness (incisional, drain serosang) Extremity: Non Tender, No Calf Tenderness Neurologic/Psychiatric: Alert, Oriented x3 Skin: Normal Color, Warm/Dry Lymphatic: No Adenopathy Assessment/Plan Assessment/Plan Assessment/Plan s/p low anterior resection with end colostomy repeat labs in am clear liquids ware for accurate i/o's Pepcid for gi prophylaxis scd's await bowel function and then will advance diet. colostomy education. Supervisory-Addendum Brief Verification & Attestation Participated in pt care: history, MDM, physical Personally performed: exam, history, MDM, supervision of care Care discussed with: Medical Student Procedures: n/a Results interpretation: Verified all documentation Verification and Attestation of Medical Student E/M Service A medical student performed and documented this service in my presence. I reviewed and verified all information documented by the medical student and made modifications to such information, when appropriate. I personally performed the physical exam and medical decision making. Wilfredo Minor, Jul 26, 2022,20:44 JULISA MOREL Jul 26, 2022 08:00 WILFREDO MINOR DO Jul 26, 2022 20:44
[2022-07-26] MEDS: morphine INJ 4 MG/ML 1 ML (VIAL/SYRINGE) IVP PRN ×2 (09:14→17:51)
[2022-07-26 11:21] VITALS: BP 129/71
--- NOTE | 2022-07-26 11:51 | Physical Therapy Evaluation ---
PT Evaluation-General Medical Diagnosis Admission Date Jul 25, 2022 at 09:51 Medical Diagnosis: rectal mass Onset Date: Jul 25, 2022 Therapy Diagnosis Therapy Diagnosis: debility Precautions Precautions/Isolations: Standard Precautions Weight Bear Status Right Lower Extremity: Right Weight Bearing/Tolerated Left Lower Extremity: Left Weight Bearing/Tolerated Referral Physician: Mikal Reason for Referral: Evaluation/Treatment Medical History Current History adenocarcinoma Reviewed History: Yes Social History Home: Single Level Current Living Status: Alone Entry Into Home: Stairs With Railing PT Steps Into Home: 2 Prior Prior Level of Function SCALE: Activities may be completed with or without assistive devices. 9-Wvokcxalwa-cyvaytb completes the activity by him/herself with no assistance from a helper. 5-Set-up or Clean-up Assistance-helper sets up or cleans up; patient completes activity. [place] assists only prior to or following the activity. 4-Supervision or Touching Assistance-helper provides verbal cues and/or touching/steadying and/or contact guard assistance as patient completes activity. Assistance may be provided throughout the activity or intermittently. 3-Partial/Moderate Assistance-helper does LESS THAN HALF the effort. [place] lifts, holds or supports trunk or limbs, but provides less than half the effort. 2-Substantial/Maximal Assistance-helper does MORE THAN HALF the effort. [place] lifts or holds trunk or limbs and provides more than half the effort. 0-Qeoppmflr-pqserh does ALL the effort. Patient does none of the effort to co mplete the activity. Or, the assistance of 2 or more helpers is required for the patient to complete the activity. If activity was not attempted, code reason: 7-Patient Refused. 9-Not Applicable-not attempted and the patient did not perform the activity before the current illness, exacerbation or injury. 10-Not Attempted due to Environmental Limitations-(lack of equipment, weather restraints, etc.). 88-Not Attempted due to Medical Conditions or Safety Concerns. Bed Mobility: 6 Transfers (B,C,W/C): 6 Gait: 6 Stairs: 6 Indoor Mobility (Ambulation): Independent Stairs: Independent Prior Devices Use: None drives PT Evaluation-Current Subjective Patient agrees to PT. Objective Patient Orientation: Normal For Age Attachments: Bob Catheter, IV ROM/Strength ROM Lower Extremities bilateral LE WFL Strength Lower Extremities 4/5 grossly bilateral LE all planes Integumentary/Posture Bowel Incontinence: No Bladder Incontinence: Bob Cath Posture slightly kyphotic Neuromuscular (Tone, Coordination, Reflexes) grossly intact Sensory Vision: Wears Glasses Hearing: Hearing Aid/Aides Transfers Sit to Stand (QC): 4 Gait Mode of Locomotion: Walk Anticipated Mode of Locomotion: Walk Walk 10 feet (QC): 4 Walk 50 ft with 2 Turns(QC): 4 Walk 150 ft (QC): 4 Distance: 275' Gait Assistive Device: FWW Balance Sitting Static: Normal Sitting Dynamic: Normal Standing Static: Normal Standing Dynamic: Normal Assessment/Needs Patient will be seen short term by skilled PT to address functional mobility to ensure safe return to home at maximum LOF. Rehab Potential: Fair PT Anode Adjuster Goals Anode Adjuster Goals PT Nursing Home Goals Time Frame: Aug 04, 2022 Roll Left & Right (QC): 6 Sit to Lying (QC): 6 Lying-Sitting on Side/Bed(QC): 6 Sit to Stand (QC): 6 Chair/Wij-mm-Pzczv Xfer(QC): 6 Toilet Transfer (QC): 6 Walk 10 feet (QC): 6 Walk 50ft with 2 Turns (QC): 6 Walk 150 ft (QC): 6 Walking 10ft on Uneven Surface: 6 1 Step (curb) (QC): 6 PT Plan Problem List Problem List: Safety Treatment/Plan Treatment Plan: Continue Plan of Care Treatment Plan: Bed Mobility, Education, Functional Activity Enmanuel, Functional Strength, Gait, Safety, Therapeutic Exercise, Transfers Treatment Duration: Aug 04, 2022 Frequency: 6 times per week Estimated Hrs Per Day: .25 hour per day Patient and/or Family Agrees t: Yes Time Time In: 1114 Time Out: 1124 DATE: Jul 26, 2022 Total Billed Treatment Time: 10 Total Billed Treatment 1 visit EVLow 10 min SMITA LERMA PT Jul 26, 2022 11:51
--- NOTE | 2022-07-26 12:41 | Anesthesia-General Post-Op ---
General Patient Condition Mental Status/LOC: Same as Preop Cardiovascular: Satisfactory Nausea/Vomiting: Absent Respiratory: Satisfactory Pain: Controlled Complications: Absent Post Op Complications Complications None Follow Up Care/Instructions Patient Instructions None needed. Anesthesia/Patient Condition Patient Condition Patient is doing well, no complaints, stable vital signs, no apparent adverse anesthesia problems. No complications reported per nursing. VIANNEY ALFONSO CRNA Jul 26, 2022 12:41
[2022-07-26 16:27] VITALS: BP 132/70
[2022-07-26] MEDS ORDERED: FAMOTIDINE 20 MG (PEPCID) TABLET PO PRN (18:00)
[2022-07-26 20:29] VITALS: BP 128/66
[2022-07-27 00:28] VITALS: BP 126/68
[2022-07-27] MEDS: morphine INJ 4 MG/ML 1 ML (VIAL/SYRINGE) IVP PRN ×2 (00:35→19:21)
[2022-07-27] MEDS: LACTATED RINGERS 1,000 ML IV SCH ×3 (03:55→23:32)
[2022-07-27 04:00] VITALS: BP 123/67
--- NOTE | 2022-07-27 05:57 | Progress Note - Hospitalist ---
Subjective HPI/CC On Admission Date Seen by Provider: Jul 27, 2022 Time Seen by Provider: 11:30 Chief complaint: Medical management following partial colon resection HPI: This is a 72-year-old male who is status post partial colon resection due to colon cancer status postchemotherapy and radiation. Patient feels much be tter today pain is controlled. Physical therapy ordered. Denies any nausea. Pain around pretty well. Subjective/Events-last exam Doing very well Ambulating Bob cath still in place Pain is controlled Review of Systems General: Fatigue, Malaise Objective Exam Vital Signs Vital Signs Date Time Temp Pulse Resp B/P (MAP) Pulse Ox O2 Delivery O2 Flow Rate FiO2 07/28/22 00:00 36.8 76 18 146/74 (98) 94 Room Air 07/27/22 08:02 0.00 07/25/22 19:46 21 Capillary Refill : General Appearance: No Apparent Distress, WD/WN, Chronically ill Respiratory: Lungs Clear, Normal Breath Sounds Cardiovascular: Regular Rate, Rhythm Neurologic/Psychiatric: Alert, Oriented x3 Results/Procedures Lab Laboratory Tests 07/27/22 05:45 Patient resulted labs reviewed. Assessment/Plan Assessment and Plan Assess & Plan/Chief Complaint Assessment: Status post partial colon resection for colon cancer and placement of colostomy now postop ileus Abdominal pain Debility Plan: Supportive care Pain control Therapy KHADIJAH BOSS DO Jul 27, 2022 05:56
[2022-07-27 06:08] LABS: HEMATOCRIT 29 % (40-54); HEMOGLOBIN 9.6 g/dL (13.3-17.7); MEAN CORPUSCULAR HEMOGLOBIN 30 pg (25-34); MEAN CORPUSCULAR HGB CONC 33 g/dL (32-36); MEAN CORPUSCULAR VOLUME 91 fL (80-99); MEAN PLATELET VOLUME 9.7 fL (9.0-12.2); PLATELET COUNT 193 10^3/uL (130-400); WHITE BLOOD COUNT 9.4 10^3/uL (4.3-11.0)
[2022-07-27 06:28] LABS: ALBUMIN 2.7 GM/DL (3.2-4.5); BILIRUBIN,TOTAL 0.8 MG/DL (0.1-1.0); CALCIUM 8.5 MG/DL (8.5-10.1); CREATININE SERUM 0.9 MG/DL (0.60-1.30); MAGNESIUM 1.6 MG/DL (1.6-2.4); POTASSIUM 3.6 MMOL/L (3.6-5.0); TOTAL PROTEIN 6.1 GM/DL (6.4-8.2)
[2022-07-27 07:54] VITALS: BP 123/65
--- NOTE | 2022-07-27 08:18 | Progress Note - Surgery ---
JULISA MOREL 07/27/22 0818: Subjective Date Seen by a Provider: Jul 27, 2022 Subjective/Events-last exam Pt is doing well and is tolerating pain with medication. Pt is passing gas but has no solid output on the ostomy. Incision was leaking clear fluid leading to shift coordinator nurse reinforcing dressing. Nurse states that dressing needs to be changed. EMILY output was 45mL last night and has a redish pink color. Ate popcicle last night. Pt states he is sleeping well and only reports pain with cough at rest. After receiving pain medication yesterday he was able to walk around with physical therapy. Review of Systems General: No Chills HEENT: No Head Aches Pulmonary: No Dyspnea, No Cough Cardiovascular: No: Chest Pain, Palpitations, Edema Gastrointestinal: No: Nausea, Vomiting Neurological: No: Weakness, Numbness Objective Exam Vital Signs Date Time Temp Pulse Resp B/P (MAP) Pulse Ox O2 Delivery O2 Flow Rate FiO2 07/27/22 08:02 92 Room Air 0.00 07/27/22 07:54 37.3 92 16 123/65 (84) 92 Room Air 07/27/22 04:00 37.2 86 16 123/67 (85) 94 Room Air 07/27/22 00:28 36.7 89 16 126/68 (87) 94 Room Air 07/26/22 20:29 37.2 89 16 128/66 (86) 96 Room Air 07/26/22 16:27 36.6 80 19 132/70 (90) 97 Room Air 07/26/22 11:21 36.7 83 16 129/71 (90) 96 Room Air 07/26/22 09:00 95 Room Air I & O 07/27/22 07:00 Intake Total 4670 ml Output Total 2009 ml Balance 2660 ml Capillary Refill : General Appearance: No Apparent Distress, WD/WN, Chronically ill HEENT: PERRL/EOMI, Normal ENT Inspection, Pharynx Normal Neck: Full Range of Motion, Normal Inspection, Non Tender, Supple, Carotid Bruit Respiratory: Chest Non Tender, Lungs Clear, Normal Breath Sounds, No Accessory Muscle Use, No Respiratory Distress Cardiovascular: Regular Rate, Rhythm, No Edema, No Gallop, No JVD, No Murmur, Normal Peripheral Pulses Peripheral Pulses: 2+ Radial Pulses (R), 2+ Radial Pulses (L) Gastrointestinal: soft, tenderness (incisional, drain serosang) Extremity: Normal Capillary Refill, Normal Inspection, Normal Range of Motion, Non Tender, No Calf Tenderness, No Pedal Edema Neurologic/Psychiatric: Alert, Oriented x3, No Motor/Sensory Deficits, Normal Mood/Affect Skin: Normal Color, Warm/Dry Lymphatic: No Adenopathy Results Lab Laboratory Tests 07/27/22 05:45: White Blood Count 9.4, Red Blood Count 3.21L, Hemoglobin 9.6L, Hematocrit 29L, Mean Corpuscular Volume 91, Mean Corpuscular Hemoglobin 30, Mean Corpuscular Hemoglobin Concent 33, Red Cell Distribution Width 16.5H, Platelet Count 193, Mean Platelet Volume 9.7, Sodium Level 138, Potassium Level 3.6, Chloride Level 107, Carbon Dioxide Level 25, Anion Gap 6, Blood Urea Nitrogen 8, Creatinine 0.90, Estimat Glomerular Filtration Rate 90, BUN/Creatinine Ratio 9, Glucose Level 122H, Calcium Level 8.5, Corrected Calcium 9.5, Magnesium Level 1.6, Total Bilirubin 0.8, Aspartate Amino Transf (AST/SGOT) 17, Alanine Aminotransferase (ALT/SGPT) 9, Alkaline Phosphatase 73, Total Protein 6.1L, Albumin 2.7L Microbiology 07/25/22 MRSA Screen - Final, Complete MRSA not isolated Assessment/Plan Assessment/Plan Assessment/Plan s/p low anterior resection with end colostomy Monitor Hemoglobin. Trended down to from 10.5 to 9.6. Make sure it doesn't continue to drop. clear liquids Monitor urine output Pepcid for gi prophylaxis scd's await bowel function and then will advance diet. colostomy education. ERWIN REN DO 07/27/22 2013: Subjective Subjective/Events-last exam Patient has gas out colostomy. No stool. Pain controlled. Using IS. TOlerating clears. Wanting food. Urine output good and yellow. Denies n/v fever sweats chills shortness of breath or chest pain. Objective Exam General Appearance: No Apparent Distress, Chronically ill HEENT: PERRL/EOMI, Normal ENT Inspection Neck: Full Range of Motion, Non Tender, Supple Respiratory: Chest Non Tender, No Accessory Muscle Use, No Respiratory Distress Cardiovascular: Regular Rate, Rhythm, No JVD Gastrointestinal: soft, tenderness (incisional, drain serosang, colostomy pink) Extremity: Normal Capillary Refill, Non Tender Neurologic/Psychiatric: Alert, Oriented x3 Assessment/Plan Assessment/Plan Assessment/Plan s/p low anterior resection with end colostomy anemia postoperative surgical and dilutional Monitor Hemoglobin. Trended down to from 10.5 to 9.6. Make sure it doesn't continue to drop. clear liquids-advance diet since having flatus Monitor urine output dc ware in am Pepcid for gi prophylaxis scd's start lovenox colostomy education. Supervisory-Addendum Brief Verification & Attestation Participated in pt care: history, MDM, physical Personally performed: exam, history, MDM, supervision of care Care discussed with: Medical Student Procedures: n/a Results interpretation: Verified all documentation Verification and Attestation of Medical Student E/M Service A medical student performed and documented this service in my presence. I reviewed and verified all information documented by the medical student and made modifications to such information, when appropriate. I personally performed the physical exam and medical decision making. Erwin Ren, Jul 27, 2022,20:13 JULISA MOREL Jul 27, 2022 08:18 ERWIN REN DO Jul 27, 2022 20:13
[2022-07-27 11:38] VITALS: BP 140/68
--- NOTE | 2022-07-27 11:58 | Physical Therapy Daily Note ---
PT Daily Note-Current Subjective Patient agrees to PT. Pain Section J - Health Conditions 1. Rarely or not at all 2. Occasionally 3. Frequently 4. Almost constantly 8. Unable to answer Pain Effect on Sleep: 1 Pain Interference with Therapy: 1 Pain Interference w/Day-to-Day: 1 Mental Status Patient Orientation: Normal For Age Attachments: Bob Catheter, IV Transfers SCALE: Activities may be completed with or without assistive devices. 6-Jduwdzhrgu-qgxeaym completes the activity by him/herself with no assistance from a helper. 5-Set-up or Clean-up Assistance-helper sets up or cleans up; patient completes activity. [place] assists only prior to or following the activity. 4-Supervision or Touching Assistance-helper provides verbal cues and/or touching/steadying and/or contact guard assistance as patient completes activity. Assistance may be provided throughout the activity or intermittently. 3-Partial/Moderate Assistance-helper does LESS THAN HALF the effort. [place] lifts, holds or supports trunk or limbs, but provides less than half the effort. 2-Substantial/Maximal Assistance-helper does MORE THAN HALF the effort. [place] lifts or holds trunk or limbs and provides more than half the effort. 1-Lshafesxv-xfrzze does ALL the effort. Patient does none of the effort to complete the activity. Or, the assistance of 2 or more helpers is required for the patient to complete the activity. If activity was not attempted, code reason: 7-Patient Refused. 9-Not Applicable-not attempted and the patient did not perform the activity before the current illness, exacerbation or injury. 10-Not Attempted due to Environmental Limitations-(lack of equipment, weather restraints, etc.). 88-Not Attempted due to Medical Conditions or Safety Concerns. Sit to Stand (QC): 6 Weight Bearing Right Lower Extremity: Right Weight Bearing/Tolerated Left Lower Extremity: Left Weight Bearing/Tolerated Gait Training Distance: 400' Walk 10 feet (QC): 5 Walk 50 ft with 2 Turns(QC): 5 Walk 150 ft (QC): 5 Gait Assistive Device: FWW safe and functional with no deviation Assessment Patient is at PLOF with gross motor skills. PT to dismiss patient from services at this time and patient to ambulate with nursing PRN. Both notified. PT Creche Attendant Goals Chcf Goals PT Creche Attendant Goals Time Frame: Aug 04, 2022 Roll Left & Right (QC): 6 Sit to Lying (QC): 6 Lying-Sitting on Side/Bed(QC): 6 Sit to Stand (QC): 6 Chair/Sif-ae-Mksro Xfer(QC): 6 Toilet Transfer (QC): 6 Walk 10 feet (QC): 6 Walk 50ft with 2 Turns (QC): 6 Walk 150 ft (QC): 6 Walking 10ft on Uneven Surface: 6 1 Step (curb) (QC): 6 PT Plan Treatment/Plan Treatment Plan: Discontinue PT Treatment Plan: Bed Mobility, Education, Functional Activity Enmanuel, Functional Strength, Gait, Safety, Therapeutic Exercise, Transfers Treatment Duration: Aug 04, 2022 Frequency: 6 times per week Estimated Hrs Per Day: .25 hour per day Patient and/or Family Agrees t: Yes Time Time In: 1124 Time Out: 1135 DATE: Jul 27, 2022 Total Billed Treatment Time: 10 Total Billed Treatment 1 visit FA 10 min SMITA LERMA PT Jul 27, 2022 11:58
--- NOTE | 2022-07-27 15:28 | D/C HH Face to Face Order ---
D/C Face to Face Orders Instructions for Patient Via [facility], Patient Instructions/FollowUp: Colostomy education and change. Physician to follow Patient: Mikal Discharge Diet for Home: Regular Diet Patient Data-Allergies,Ht & Wt Patient Allergies: Coded Allergies: No Known Drug Allergies (Unverified , 07/20/22) Home Health Need/Face to Face Date of Face to Face: Jul 27, 2022 Clinical Findings: Generalized weakness and fatigue, Other-list in note (Colostomy) I have seen Pt [id number]-[id number]: Yes Discharged To: Home Diagnosis/Conditions: rectal cancer s/p low anterior resection with end colostomy Patient is Homebound due to: CognItive deficits, Muscle weakness Homebound Status Due to the above stated illness, injury or surgical procedure (medical condition or diagnosis) and associated clinical findings, the patient is homebound because of his/her inability to leave home except with aid of a supportive device and/or person AND leaving the home requires a considerable and taxing effort or is medically contraindicated. Pt req the following assistanc: Aid of another person Home Health Nursing Orders Home Health Services Order: Nursing Services, Wound Care-Eval/Treat Home Health Infusion Therapy Line Start Date: Jul 25, 2022 Certify Stmt I certify that this patient is under my care and that I, a nurse practitioner or a physician; a corporate administrative assistant working with me, had a face to face encounter that - meets the physician face to face encounter requirements with this patient as dated. WILFREDO MINOR DO Jul 27, 2022 15:18
[2022-07-27 15:33] VITALS: BP 152/69
[2022-07-27] MEDS ORDERED: HYDROcodone/APAP 5 MG/325 MG (LORTAB) TAB PO PRN (20:15)
[2022-07-28] VITALS: BP 146/74
[2022-07-28 06:20] LABS: HEMATOCRIT 32 % (40-54); HEMOGLOBIN 10.5 g/dL (13.3-17.7); MEAN CORPUSCULAR HEMOGLOBIN 30 pg (25-34); MEAN CORPUSCULAR HGB CONC 33 g/dL (32-36); MEAN CORPUSCULAR VOLUME 91 fL (80-99); MEAN PLATELET VOLUME 9.6 fL (9.0-12.2); PLATELET COUNT 210 10^3/uL (130-400); WHITE BLOOD COUNT 11.3 10^3/uL (4.3-11.0)
--- NOTE | 2022-07-28 06:31 | Progress Note - Hospitalist ---
Subjective HPI/CC On Admission Date Seen by Provider: Jul 28, 2022 Time Seen by Provider: 11:00 Chief complaint: Medical management following partial colon resection HPI: This is a 72-year-old male who is status post partial colon resection due to colon cancer status postchemotherapy and radiation. Patient feels much better today pain is controlled. Physical therapy ordered. Denies any nausea. Pain around pretty well. Subjective/Events-last exam Patient having nausea and vomiting IV fluids given Will add antiemetics Pain is controlled Hematuria continues Bob catheter still in place Review of Systems General: Fatigue, Malaise Gastrointestinal: Nausea, Vomiting, Abdominal Pain Objective Exam Vital Signs Vital Signs Date Time Temp Pulse Resp B/P (MAP) Pulse Ox O2 Delivery O2 Flow Rate FiO2 07/29/22 03:21 36.7 71 20 142/70 (94) 95 Room Air 07/28/22 07:41 21 07/28/22 07:38 0.00 Capillary Refill : General Appearance: Anxious, Chronically ill, Mild Distress (Vomiting) Respiratory: Lungs Clear, Normal Breath Sounds Cardiovascular: Regular Rate, Rhythm Neurologic/Psychiatric: Alert, Oriented x3 Results/Procedures Lab Patient resulted labs reviewed. Assessment/Plan Assessment and Plan Assess & Plan/Chief Complaint Assessment: Status post partial colon resection for colon cancer and placement of colostomy now postop ileus with nausea and vomiting Abdominal pain Debility Plan: Supportive care Pain control Therapy Antiemetics KHADIJAH BOSS DO Jul 28, 2022 06:31
[2022-07-28 06:49] LABS: ALBUMIN 2.6 GM/DL (3.2-4.5)
[2022-07-28 06:50] LABS: POTASSIUM 3.6 MMOL/L (3.6-5.0)
[2022-07-28 06:51] LABS: CALCIUM 8.5 MG/DL (8.5-10.1)
[2022-07-28 06:52] LABS: TOTAL PROTEIN 5.8 GM/DL (6.4-8.2)
[2022-07-28 06:56] LABS: CREATININE SERUM 0.79 MG/DL (0.60-1.30)
[2022-07-28 06:58] LABS: MAGNESIUM 1.5 MG/DL (1.6-2.4)
[2022-07-28 07:41] VITALS: BP 146/74
[2022-07-28] MEDS ORDERED: NS 100 ML (IVPB) BAG IV ONE (07:45)
[2022-07-28] MEDS ORDERED: NS IV 500 ML 500 ML IV ONE (08:00)
[2022-07-28 08:10] VITALS: BP 159/74
--- NOTE | 2022-07-28 08:57 | Progress Note - Surgery ---
MATTHEW MORELEB 07/28/22 0857: Subjective Date Seen by a Provider: Jul 30, 2022 Subjective/Events-last exam This is pos-op day 5 for resection of rectal mass. Pt is doing well without any complaints. Pt doesn't report any pain except some slight pain. Pt's incisions are dry and healing well. Pt recieved another fluid bolus yesterday. Urine output yesterday was 0.22 and today it is 0.08. Total urine output was 450 yesterday and today 175. NG tube had an output of 300mL. Adal drain had 50ml during the 8hr shift and was serosangious with possible clot. Ostomy had some output. Review of Systems General: No Chills, No Night Sweats HEENT: No Head Aches, No Visual Changes Pulmonary: No Dyspnea; Cough Cardiovascular: No: Chest Pain, Palpitations, Edema Gastrointestinal: Abdominal Pain Genitourinary: No Dysuria, No Frequency Neurological: No: Weakness, Numbness Objective Exam Vital Signs Date Time Temp Pulse Resp B/P (MAP) Pulse Ox O2 Delivery O2 Flow Rate FiO2 07/28/22 08:10 36.3 67 18 159/74 (102) 92 Room Air 07/28/22 07:41 36.8 76 94 21 07/28/22 07:38 94 Room Air 0.00 07/28/22 00:00 36.8 76 18 146/74 (98) 94 Room Air 07/27/22 19:20 Room Air 07/27/22 15:33 37.4 78 19 152/69 (96) 95 Room Air 07/27/22 11:38 37.4 94 18 140/68 (92) 95 Room Air I & O 07/28/22 07:00 Intake Total 1840 ml Output Total 870 ml Balance 970 ml Capillary Refill : General Appearance: No Apparent Distress, WD/WN, Chronically ill HEENT: PERRL/EOMI, Normal ENT Inspection Neck: Full Range of Motion, Non Tender, Supple Respiratory: Lungs Clear, Normal Breath Sounds Cardiovascular: Regular Rate, Rhythm Peripheral Pulses: 2+ Radial Pulses (R), 2+ Radial Pulses (L) Gastrointestinal: soft, tenderness Extremity: Normal Capillary Refill, Non Tender Neurologic/Psychiatric: Alert, Oriented x3 Skin: Normal Color, Warm/Dry Lymphatic: No Adenopathy Results Lab Laboratory Tests 07/28/22 05:55: White Blood Count 11.3H, Red Blood Count 3.56L, Hemoglobin 10.5L, Hematocrit 32L , Mean Corpuscular Volume 91, Mean Corpuscular Hemoglobin 30, Mean Corpuscular Hemoglobin Concent 33, Red Cell Distribution Width 16.0H, Platelet Count 210, Mean Platelet Volume 9.6, Sodium Level 138, Potassium Level 3.6, Chloride Level 105, Carbon Dioxide Level 24, Anion Gap 9, Blood Urea Nitrogen 10, Creatinine 0.79, Estimat Glomerular Filtration Rate 93, BUN/Creatinine Ratio 13, Glucose Level 127H, Calcium Level 8.5, Corrected Calcium 9.6, Magnesium Level 1.5L, Total Bilirubin 1.0, Aspartate Amino Transf (AST/SGOT) 16, Alanine Aminotransferase (ALT/SGPT) 8, Alkaline Phosphatase 72, Total Protein 5.8L, Albumin 2.6L Microbiology 07/25/22 MRSA Screen - Final, Complete MRSA not isolated Assessment/Plan Assessment/Plan Assessment/Plan s/p low anterior resection with end colostomy anemia postoperative surgical and dilutional Monitor Hemoglobin. Trended down to from 9.6 to 9.3. Make sure it doesn't continue to drop. clear liquids-advance diet since having flatus Monitor urine output don ware in am Pepcid for gi prophylaxis scd's start lovenox colostomy education. 07/30/22 0935: JULISA MOREL Jul 28, 2022 08:57 JADIELJul 30, 2022 09:35
--- NOTE | 2022-07-28 09:04 | Progress Note - Surgery ---
MATTHEW MORELEB 07/28/22 0904: Subjective Date Seen by a Provider: Jul 28, 2022 Subjective/Events-last exam Pt seems to be doing well and was sitting up in the bed. Pain is well controlled with medication. There was some output in the ostomy today. Urine output last night was about 150mL and has a pinkish color. ADAL drainage was 30mL. Pt denies fever, chills, GUTIERREZ, chest pain, palpitations, numbness/tingling, and swelling. White count is slightly up from yesterday at 11.3 from 9.4. Pt's H&H has increased from yesterday. Review of Systems General: No Chills, No Fatigue HEENT: No Head Aches, No Sinus Congestion Pulmonary: No Dyspnea, No Cough Cardiovascular: No: Chest Pain, Palpitations, Edema Gastrointestinal: Abdominal Pain; No: Nausea Neurological: No: Weakness, Numbness Objective Exam Vital Signs Date Time Temp Pulse Resp B/P (MAP) Pulse Ox O2 Delivery O2 Flow Rate FiO2 07/28/22 08:10 36.3 67 18 159/74 (102) 92 Room Air 07/28/22 07:41 36.8 76 94 21 07/28/22 07:38 94 Room Air 0.00 07/28/22 00:00 36.8 76 18 146/74 (98) 94 Room Air 07/27/22 19:20 Room Air 07/27/22 15:33 37.4 78 19 152/69 (96) 95 Room Air 07/27/22 11:38 37.4 94 18 140/68 (92) 95 Room Air I & O 07/28/22 07:00 Intake Total 1840 ml Output Total 870 ml Balance 970 ml Capillary Refill : General Appearance: No Apparent Distress, WD/WN, Chronically ill HEENT: PERRL/EOMI, Normal ENT Inspection Neck: Full Range of Motion, Non Tender, Supple Respiratory: Chest Non Tender, Lungs Clear, Normal Breath Sounds, No Accessory Muscle Use, No Respiratory Distress Cardiovascular: Regular Rate, Rhythm, No Edema, No Gallop, No Murmur, Normal Peripheral Pulses Peripheral Pulses: 2+ Radial Pulses (R), 2+ Radial Pulses (L) Gastrointestinal: soft, tenderness (incisional, drain serosang, colostomy pink) Extremity: Normal Capillary Refill, Non Tender Neurologic/Psychiatric: Alert, Oriented x3 Skin: Normal Color, Warm/Dry Lymphatic: No Adenopathy Results Lab Laboratory Tests 07/28/22 05:55: White Blood Count 11.3H, Red Blood Count 3.56L, Hemoglobin 10.5L, Hematocrit 32L , Mean Corpuscular Volume 91, Mean Corpuscular Hemoglobin 30, Mean Corpuscular Hemoglobin Concent 33, Red Cell Distribution Width 16.0H, Platelet Count 210, Mean Platelet Volume 9.6, Sodium Level 138, Potassium Level 3.6, Chloride Level 105, Carbon Dioxide Level 24, Anion Gap 9, Blood Urea Nitrogen 10, Creatinine 0. 79, Estimat Glomerular Filtration Rate 93, BUN/Creatinine Ratio 13, Glucose Level 127H, Calcium Level 8.5, Corrected Calcium 9.6, Magnesium Level 1.5L, Total Bilirubin 1.0, Aspartate Amino Transf (AST/SGOT) 16, Alanine Aminotransferase (ALT/SGPT) 8, Alkaline Phosphatase 72, Total Protein 5.8L, Albumin 2.6L Microbiology 07/25/22 MRSA Screen - Final, Complete MRSA not isolated Assessment/Plan Assessment/Plan Assessment/Plan s/p low anterior resection with end colostomy anemia postoperative surgical and dilutional Continue Monitor Hemoglobin. Increased from 9.6 back to 10.5. clear liquids-advance diet since having flatus Consider pulling ware. [place] concentrate in ware. Urine is more concentrated and dark which is different from yesterday. continue Pepcid for gi prophylaxis scd's and continue lovenox colostomy education. WILFREDO MINOR DO 07/29/22 1103: Subjective Subjective/Events-last exam Patient pain controlled. Tolerating diet. Has small amount of liquid stool in colostomy. Adal drain serosang. Urine output down. Slight pink tinge to urine. Objective Exam General Appearance: No Apparent Distress, Chronically ill HEENT: PERRL/EOMI Neck: Non Tender, Supple Respiratory: Chest Non Tender, No Accessory Muscle Use, No Respiratory Distress Cardiovascular: Regular Rate, Rhythm, No JVD Gastrointestinal: soft, tenderness (incisional, drain serosang, colostomy pink with slight liquid stool output) Extremity: Non Tender, No Calf Tenderness Neurologic/Psychiatric: Alert, Oriented x3 Skin: Normal Color, Warm/Dry Lymphatic: No Adenopathy Assessment/Plan Assessment/Plan Assessment/Plan s/p low anterior resection with end colostomy anemia postoperative surgical and dilutional Continue Monitor Hemoglobin. Increased from 9.6 back to 10.5. Leave ware for accurate i/o. [place] concentrate in ware. Urine is more concentrated and dark which is different from yesterday. continue Pepcid for gi prophylaxis scd's and lovenox colostomy education. samantha carey Supervisory-Addendum Brief Verification & Attestation Participated in pt care: history, MDM, physical Personally performed: exam, history, MDM, supervision of care Care discussed with: Medical Student Procedures: n/a Results interpretation: Verified all documentation Verification and Attestation of Medical Student E/M Service A medical student performed and documented this service in my presence. I review ed and verified all information documented by the medical student and made modifications to such information, when appropriate. I personally performed the physical exam and medical decision making. Wilfredo Minor, Jul 28, 2022,11:03 JULISA MOREL Jul 28, 2022 09:04 WILFREDO MINOR DO Jul 29, 2022 11:03
[2022-07-28] MEDS: LACTATED RINGERS 1,000 ML IV SCH ×3 (09:11→19:24)
[2022-07-28] MEDS: cefTRIAXone 1 GM PRE-MIX 50 ML IV SCH (09:11)
[2022-07-28] MEDS: metroNIDAZOLE 500MG/100ML IVPB 100 ML IV SCH ×2 (09:50→16:24)
[2022-07-28] MEDS ORDERED: NS (IVPB) 500 ML IV ONE (10:15)
[2022-07-28] MEDS ORDERED: ONDANSETRON 4 MG/2 ML (SDV) Z0FRAN IVP NR (11:45)
[2022-07-28] MEDS ORDERED: ONDANSETRON 4 MG/2 ML (SDV) Z0FRAN IVP PRN (11:45)
[2022-07-28 16:00] VITALS: BP 155/73
[2022-07-28] MEDS: ENOXAPARIN 40 MG/0.4 ML (LOVENOX) SYR SC SCH (19:24)
[2022-07-28 20:53] VITALS: BP 141/70
[2022-07-28] MEDS ORDERED: NS IV 1000 ML 1,000 ML ONE (22:13)
[2022-07-28] MEDS ORDERED: NS IV 1000 ML 1,000 ML IV ONE (22:15)
[2022-07-28 23:15] VITALS: BP 157/74
[2022-07-29] MEDS: metroNIDAZOLE 500MG/100ML IVPB 100 ML IV SCH ×3 (01:42→17:02)
[2022-07-29 03:21] VITALS: BP 142/70
[2022-07-29] MEDS: LACTATED RINGERS 1,000 ML IV SCH ×2 (05:53→15:20)
--- NOTE | 2022-07-29 06:39 | Progress Note - Hospitalist ---
Subjective HPI/CC On Admission Date Seen by Provider: Jul 29, 2022 Time Seen by Provider: 11:00 Chief complaint: Medical management following partial colon resection HPI: This is a 72-year-old male who is status post partial colon resection due to colon cancer status postchemotherapy and radiation. Patient feels much be tter today pain is controlled. Physical therapy ordered. Denies any nausea. Pain around pretty well. Subjective/Events-last exam NG tube required Patient feels better Daughter at bedside Pain is controlled Review of Systems General: Fatigue, Malaise Gastrointestinal: Nausea, Abdominal Pain Objective Exam Vital Signs Vital Signs Date Time Temp Pulse Resp B/P (MAP) Pulse Ox O2 Delivery O2 Flow Rate FiO2 07/29/22 16:29 37.0 62 16 134/63 (86) 95 Room Air 07/28/22 07:41 21 07/28/22 07:38 0.00 Capillary Refill : General Appearance: No Apparent Distress, WD/WN, Chronically ill Respiratory: Lungs Clear, Normal Breath Sounds Cardiovascular: Regular Rate, Rhythm Neurologic/Psychiatric: Alert, Oriented x3 Results/Procedures Lab Laboratory Tests 07/29/22 06:10 Patient resulted labs reviewed. Assessment/Plan Assessment and Plan Assess & Plan/Chief Complaint Assessment: Status post partial colon resection for colon cancer and placement of colostomy now postop ileus with nausea and vomiting requiring NG tube Abdominal pain Debility Plan: Supportive care Pain control Therapy Antiemetics KHADIJAH BOSS DO Jul 29, 2022 06:39
[2022-07-29 06:58] LABS: HEMATOCRIT 30 % (40-54); HEMOGLOBIN 9.8 g/dL (13.3-17.7); MEAN CORPUSCULAR HEMOGLOBIN 29 pg (25-34); MEAN CORPUSCULAR HGB CONC 32 g/dL (32-36); MEAN CORPUSCULAR VOLUME 91 fL (80-99); MEAN PLATELET VOLUME 9.9 fL (9.0-12.2); PLATELET COUNT 224 10^3/uL (130-400); WHITE BLOOD COUNT 8.1 10^3/uL (4.3-11.0)
[2022-07-29 07:19] LABS: ALBUMIN 2.6 GM/DL (3.2-4.5); BILIRUBIN,TOTAL 0.7 MG/DL (0.1-1.0); CALCIUM 8.4 MG/DL (8.5-10.1); CREATININE SERUM 0.91 MG/DL (0.60-1.30); MAGNESIUM 1.7 MG/DL (1.6-2.4); POTASSIUM 3.4 MMOL/L (3.6-5.0); TOTAL PROTEIN 5.8 GM/DL (6.4-8.2)
--- NOTE | 2022-07-29 07:21 | Progress Note - Surgery ---
BRITTONCarlCONNIE NIEVES 07/29/22 0721: Subjective Date Seen by a Provider: Jul 29, 2022 Time Seen by a Provider: 07:16 Subjective/Events-last exam Upon follow up for resection of rectal mass, post-op day 4, Kavon is laying supine in bed with NG tube and ware in place. He states that he is feeling pretty okay today, with little to no pain on palpation. He did have some emesis (200ml) last night, for which the NG tube was placed. Moreover, he has been oliguirc, and has had 125 ml of output today. His incisions are clean, dry, and intact, without purulence or drainage. His ostomy does have some output today, and his ware bag demonstrates minimal concentrated urine output with pink-toned tubing. NG tube has had approximately 3350 ml of dark green output. Kavon denies any pain, fever, chills, nausea, or vomiting today. He is presently NPO. Review of Systems General: No Chills, No Night Sweats; Fatigue HEENT: No Head Aches, No Visual Changes Pulmonary: No Dyspnea, No Cough Cardiovascular: No: Chest Pain, Palpitations Gastrointestinal: No: Nausea, Vomiting, Abdominal Pain Genitourinary: No Dysuria, No Frequency Musculoskeletal: No: neck pain, shoulder pain Neurological: Weakness; No: Numbness Focused Exam Respiratory: Chest Non Tender, No Accessory Muscle Use, No Respiratory Distress, Crackles (Minimal), Decreased Breath Sounds Objective Exam Vital Signs Date Time Temp Pulse Resp B/P (MAP) Pulse Ox O2 Delivery O2 Flow Rate FiO2 07/29/22 03:21 36.7 71 20 142/70 (94) 95 Room Air 07/28/22 23:15 37.0 78 20 157/74 (101) 94 Room Air 07/28/22 20:53 36.7 81 21 141/70 (93) 92 Room Air 07/28/22 19:25 Room Air 07/28/22 16:00 36.4 76 20 155/73 (100) 94 Room Air 07/28/22 08:10 36.3 67 18 159/74 (102) 92 Room Air 07/28/22 08:00 Room Air 07/28/22 07:41 36.8 76 94 21 07/28/22 07:38 94 Room Air 0.00 I & O 07/29/22 07:00 Intake Total 2200 ml Output Total 4485 ml Balance -2285 ml Capillary Refill : General Appearance: Anxious, Chronically ill, Mild Distress (Vomiting) HEENT: PERRL/EOMI, Normal ENT Inspection Neck: Full Range of Motion, Non Tender, Supple Respiratory: Lungs Clear, Normal Breath Sounds Cardiovascular: Regular Rate, Rhythm Peripheral Pulses: 2+ Radial Pulses (R), 2+ Radial Pulses (L) Gastrointestinal: soft, tenderness (incisional, drain serosang, colostomy pink) Extremity: Normal Capillary Refill, Non Tender Neurologic/Psychiatric: Alert, Oriented x3 Skin: Normal Color, Warm/Dry Lymphatic: No Adenopathy Results Lab Laboratory Tests 07/29/22 06:10: White Blood Count 8.1, Red Blood Count 3.33L, Hemoglobin 9.8L, Hematocrit 30L, Mean Corpuscular Volume 91, Mean Corpuscular Hemoglobin 29, Mean Corpuscular Hem oglobin Concent 32, Red Cell Distribution Width 15.9H, Platelet Count 224, Mean Platelet Volume 9.9 Microbiology 07/25/22 MRSA Screen - Final, Complete MRSA not isolated Assessment/Plan Assessment/Plan Assessment/Plan S/P low anterior resection with end colostomy POD #4 Anemia postoperative surgical, dilutional Continue Monitor Hemoglobin. H/H remain stable, hemoglobin is presently 10.5 NPO => NG tube is in place, 3250 ml Ware is still in place Continue Pepcid for gi prophylaxis Colostomy education DVT prophylaxis Scd's WILFREDO Sneed DO 07/29/22 1110: Subjective Subjective/Events-last exam Having nausea and emesis last night. Ng tube placed with large output. Urine down and clear/yellow today. Slight liquid stool output from colostomy. Pain controlled. Got boluses yesterday. Urine output still down. Denies fever sweats chills shortness of breath or chest pain. Objective Exam General Appearance: No Apparent Distress, Chronically ill HEENT: PERRL/EOMI, Normal ENT Inspection Neck: Full Range of Motion, Non Tender Respiratory: Chest Non Tender, No Accessory Muscle Use, No Respiratory Distress Cardiovascular: Regular Rate, Rhythm, No JVD Gastrointestinal: soft, tenderness (incisional, drain serosang, colostomy pink liquid stool output) Extremity: Normal Capillary Refill, Non Tender Neurologic/Psychiatric: Alert, Oriented x3, Normal Mood/Affect Skin: Normal Color, Warm/Dry Lymphatic: No Adenopathy Assessment/Plan Assessment/Plan Assessment/Plan s/p low ant resection with end colostomy n/v - ng tube placed - liws npo anemia-postop/dilutional urine output down iv fluids-ware for accurate i/o scd/lovenox pepcid for gi prophylaxis rocephin/flagyl Supervisory-Addendum Brief Verification & Attestation Participated in pt care: history, MDM, physical Personally performed: exam, history, MDM, supervision of care Care discussed with: Medical Student Procedures: n/a Results interpretation: Verified all documentation Verification and Attestation of Medical Student E/M Service A medical student performed and documented this service in my presence. I reviewed and verified all information documented by the medical student and made modifications to such information, when appropriate. I personally performed the physical exam and medical decision making. Wilfredo Minor, Jul 29, 2022,11:14 CONNIE RODRIGUEZ Jul 29, 2022 07:21 WILFREDO MINOR DO Jul 29, 2022 11:10
[2022-07-29 07:24] VITALS: BP 134/70
[2022-07-29] MEDS: cefTRIAXone 1 GM PRE-MIX 50 ML IV SCH (09:46)
[2022-07-29] MEDS ORDERED: CHLORASEPTIC SPRAY 177 ML LIQUID MC PRN (10:30)
[2022-07-29 11:32] VITALS: BP 149/69
[2022-07-29 16:29] VITALS: BP 134/63
[2022-07-29] MEDS ORDERED: NS IV 1000 ML 1,000 ML ONE (18:23)
[2022-07-29] MEDS ORDERED: NS IV 1000 ML 1,000 ML IV SCH (18:30)
[2022-07-29] MEDS: ENOXAPARIN 40 MG/0.4 ML (LOVENOX) SYR SC SCH (19:10)
[2022-07-29 20:10] VITALS: BP 141/66
[2022-07-29 23:19] VITALS: BP 141/66
[2022-07-30] MEDS: metroNIDAZOLE 500MG/100ML IVPB 100 ML IV SCH ×3 (01:26→15:53)
[2022-07-30] MEDS: LACTATED RINGERS 1,000 ML IV SCH ×3 (01:26→22:11)
[2022-07-30 03:53] VITALS: BP 121/62
[2022-07-30 05:46] LABS: HEMATOCRIT 29 % (40-54); HEMOGLOBIN 9.3 g/dL (13.3-17.7); MEAN CORPUSCULAR HEMOGLOBIN 29 pg (25-34); MEAN CORPUSCULAR HGB CONC 32 g/dL (32-36); MEAN CORPUSCULAR VOLUME 92 fL (80-99); MEAN PLATELET VOLUME 9.7 fL (9.0-12.2); PLATELET COUNT 199 10^3/uL (130-400); WHITE BLOOD COUNT 5.7 10^3/uL (4.3-11.0)
[2022-07-30 06:02] LABS: ALBUMIN 2.5 GM/DL (3.2-4.5); POTASSIUM 3.3 MMOL/L (3.6-5.0)
[2022-07-30 06:04] LABS: CALCIUM 8.1 MG/DL (8.5-10.1)
[2022-07-30 06:05] LABS: TOTAL PROTEIN 5.4 GM/DL (6.4-8.2)
[2022-07-30 06:06] LABS: BILIRUBIN,TOTAL 0.9 MG/DL (0.1-1.0)
[2022-07-30 06:08] LABS: CREATININE SERUM 0.82 MG/DL (0.60-1.30)
[2022-07-30 06:11] LABS: MAGNESIUM 2.1 MG/DL (1.6-2.4)
[2022-07-30 08:00] VITALS: BP 125/62
[2022-07-30] MEDS: cefTRIAXone 1 GM PRE-MIX 50 ML IV SCH (08:16)
[2022-07-30] MEDS ORDERED: MAGNESIUM 1 GM/100 ML IVPB 100 ML IV ONE (09:30)
--- NOTE | 2022-07-30 09:30 | Progress Note - Surgery ---
JULISA MOREL 07/30/22 0930: Subjective Date Seen by a Provider: Jul 30, 2022 Subjective/Events-last exam This is pos-op day 5 for resection of rectal mass. Pt is doing well without any complaints. Pt doesn't report any pain except some slight pain. Pt's incisions are dry and healing well. Pt recieved another fluid bolus yesterday. Urine output yesterday was 0.22 and today it is 0.08. Total urine output was 450 yesterday and today 175. NG tube had an output of 300mL. Adal drain had 50ml during the 8hr shift and was serosangious with possible clot. ostomy had output today as well. Pt hasn't been ambulating lately, and states that he would like to know when he can have his NG tube out. Review of Systems General: No Chills, No Night Sweats HEENT: No Head Aches, No Eye Pain; Sinus Congestion Pulmonary: No Dyspnea; Cough Cardiovascular: No: Chest Pain, Palpitations, Edema Gastrointestinal: Abdominal Pain; No: Nausea, Vomiting Neurological: No: Numbness Objective Exam Vital Signs Date Time Temp Pulse Resp B/P (MAP) Pulse Ox O2 Delivery O2 Flow Rate FiO2 07/30/22 08:00 36.4 58 18 125/62 (83) 97 Room Air 07/30/22 03:53 36.3 57 20 121/62 (81) 94 Room Air 07/29/22 23:19 37.1 66 20 141/66 (91) 96 Room Air 07/29/22 20:10 37.2 64 16 141/66 (91) 95 Room Air 07/29/22 19:10 Room Air 07/29/22 16:29 37.0 62 16 134/63 (86) 95 Room Air 07/29/22 11:32 36.6 65 14 149/69 (95) 97 Room Air I & O 07/30/22 07:00 Intake Total 1100 ml Output Total 2610 ml Balance -1510 ml Capillary Refill : General Appearance: No Apparent Distress, WD/WN, Chronically ill HEENT: PERRL/EOMI, Normal ENT Inspection Neck: Full Range of Motion, Non Tender, Supple Respiratory: Lungs Clear, Normal Breath Sounds Cardiovascular: Regular Rate, Rhythm Peripheral Pulses: 2+ Radial Pulses (R), 2+ Radial Pulses (L) Gastrointestinal: soft, tenderness Extremity: Normal Capillary Refill, Non Tender Neurologic/Psychiatric: Alert, Oriented x3 Skin: Normal Color, Warm/Dry Lymphatic: No Adenopathy Results Lab Laboratory Tests 07/30/22 05:20: White Blood Count 5.7, Red Blood Count 3.16L, Hemoglobin 9.3L, Hematocrit 29L, Mean Corpuscular Volume 92, Mean Corpuscular Hemoglobin 29, Mean Corpuscular Hemoglobin Concent 32, Red Cell Distribution Width 15.9H, Platelet Count 199, Mean Platelet Volume 9.7, Sodium Level 146H, Potassium Level 3.3L, Chloride Level 110H, Carbon Dioxide Level 25, Anion Gap 11, Blood Urea Nitrogen 17, Creatinine 0.82, Estimat Glomerular Filtration Rate 92, BUN/Creatinine Ratio 21, Glucose Level 76, Calcium Level 8.1L, Corrected Calcium 9.3, Magnesium Level 2.1, Total Bilirubin 0.9, Aspartate Amino Transf (AST/SGOT) 27, Alanine Aminotransferase (ALT/SGPT) 12, Alkaline Phosphatase 123, Total Protein 5.4L, Albumin 2.5L Microbiology 07/25/22 MRSA Screen - Final, Complete MRSA not isolated Assessment/Plan Assessment/Plan Assessment/Plan s/p low anterior resection with end colostomy anemia postoperative surgical and dilutional Monitor Hemoglobin. Trended down to from 9.6 to 9.3. Make sure it doesn't continue to drop. clear liquids-advance diet since having flatus Monitor urine output dc ware in am Pepcid for gi prophylaxis scd's start lovenox colostomy education. ERWIN REN DO 07/30/22 1713: Subjective Subjective/Events-last exam Pain controlled. NG tube in place. Urine output low. Colostomy slight liquid stool. Not having nausea or emesis. Adal drain sersang. Not ambulating. Denies fever sweats chills shortness of breath or chest pain. Objective Exam General Appearance: No Apparent Distress, Chronically ill HEENT: PERRL/EOMI, Normal ENT Inspection Neck: Full Range of Motion, Non Tender Respiratory: Chest Non Tender, No Accessory Muscle Use, No Respiratory Distress Cardiovascular: Regular Rate, Rhythm, No JVD Gastrointestinal: soft, tenderness (incisional, colostomy pink minimal slight liquid stool) Extremity: Normal Capillary Refill, Non Tender Neurologic/Psychiatric: Alert, Oriented x3 Skin: Normal Color, Warm/Dry Lymphatic: No Adenopathy Assessment/Plan Assessment/Plan Assessment/Plan s/p low anterior resection with end colostomy anemia postoperative surgical and dilutional Monitor Hemoglobin. Trended down to from 9.6 to 9.3. Make sure it doesn't continue to drop. Ng tube awaiting better output from colostomy Monitor urine output continue ware Pepcid for gi prophylaxis scd's lovenox colostomy education. encouraged ambulation Supervisory-Addendum Brief Verification & Attestation Participated in pt care: history, MDM, physical Personally performed: exam, history, MDM, supervision of care Care discussed with: Medical Student Procedures: n/a Results interpretation: Verified all documentation Verification and Attestation of Medical Student E/M Service A medical student performed and documented this service in my presence. I reviewed and verified all information documented by the medical student and made modifications to such information, when appropriate. I personally performed the physical exam and medical decision making. Erwin Ren, Jul 30, 2022,17:13 JULISA MOREL Jul 30, 2022 09:30 ERWIN REN DO Jul 30, 2022 17:13
[2022-07-30] MEDS: POTASSIUM CL 10MEQ/50ML IVPB 50 ML IV SCH ×4 (09:38→11:55)
--- NOTE | 2022-07-30 11:01 | Progress Note ---
RENEEWALLACE 07/30/22 1101: Subjective Date Seen by a Provider: Jul 30, 2022 Time Seen by a Provider: 09:00 Subjective/Events-last exam This is a 72-year-old male who is status post partial colon resection due to colon cancer status post chemotherapy and radiation. Patient feels pain is con trolled. Denies any nausea. He does complain of rhinorrhea and some minimal clear "spit up" in his bedside bucket. The chloraseptic spray is helping him to tolerate the NGT. Nurse reports EMILY drain had yellow discharge this morning that is now red. Notable labs included K at 3.3. Urine output has improved and NGT remains with a large amount of output. Review of Systems General: No Chills, No Night Sweats HEENT: No Head Aches; Other (rhinorrhea) Pulmonary: No Dyspnea, No Cough Cardiovascular: No: Chest Pain, Palpitations Gastrointestinal: Vomiting (clear "spit up"); No: Nausea, Abdominal Pain Genitourinary: No Dysuria; Other (catheter) Objective Exam Last Set of Vital Signs Vital Signs Date Time Temp Pulse Resp B/P (MAP) Pulse Ox O2 Delivery O2 Flow Rate FiO2 07/30/22 08:00 36.4 58 18 125/62 (83) 97 Room Air 07/28/22 07:41 21 07/28/22 07:38 0.00 Capillary Refill : I&O Intake and Output 07/30/22 00:00 Intake Total 1100 ml Output Total 5750 ml Balance -4650 ml Intake Oral 0 ml IV Total 1100 ml Output Urine Total 450 ml Stool Total 30 ml Gastric Drainage Total 4850 ml Emesis 200 ml Drainage Total 220 ml General: Alert, Oriented X3, Cooperative, No Acute Distress HEENT: Atraumatic, PERRLA, EOMI, Mucous Memb Moist/[place], Other (NGT draining brown liquid) Neck: No JVD Lungs: Clear to Auscultation, Normal Air Movement Heart: Regular Rate, Normal S1, Normal S2, No Murmurs Abdomen: Soft, Other (diffusely tender; colostomy with brown liquid; EMILY drain with viscous red drainage) Extremities: No Edema, Normal Pulses Skin: No Significant Lesion Neuro: Normal Speech Psych/Mental Status: Mental Status NL, Mood NL Results Lab Laboratory Tests 07/30/22 05:20: White Blood Count 5.7, Red Blood Count 3.16L, Hemoglobin 9.3L, Hematocrit 29L, Mean Corpuscular Volume 92, Mean Corpuscular Hemoglobin 29, Mean Corpuscular Hemoglobin Concent 32, Red Cell Distribution Width 15.9H, Platelet Count 199, Mean Platelet Volume 9.7, Sodium Level 146H, Potassium Level 3.3L, Chloride Level 110H, Carbon Dioxide Level 25, Anion Gap 11, Blood Urea Nitrogen 17, Creatinine 0.82, Estimat Glomerular Filtration Rate 92, BUN/Creatinine Ratio 21, Glucose Level 76, Calcium Level 8.1L, Corrected Calcium 9.3, Magnesium Level 2 .1, Total Bilirubin 0.9, Aspartate Amino Transf (AST/SGOT) 27, Alanine Aminotransferase (ALT/SGPT) 12, Alkaline Phosphatase 123, Total Protein 5.4L, Albumin 2.5L Microbiology 07/25/22 MRSA Screen - Final, Complete MRSA not isolated Assessment/Plan Assessment/Plan Assess & Plan/Chief Complaint Assessment: Status post partial colon resection for colon cancer and placement of colostomy now postop ileus with nausea and vomiting requiring NG tube Abdominal pain Debility Hypokalemia Plan: Supportive care Pain control Therapy Antiemetics PT K replacement BESSY BOSS DO 07/31/22 0506: Supervisory-Addendum Brief Verification & Attestation Participated in pt care: history, MDM, physical Personally performed: exam, history, MDM, supervision of care Care discussed with: Medical Student Procedures: n/a Results interpretation: Verified all documentation Verification and Attestation of Medical Student E/M Service A medical student performed and documented this service in my presence. I reviewed and verified all information documented by the medical student and made modifications to such information, when appropriate. I personally performed the physical exam and medical decision making. Bessy Boss, Jul 31, 2022,05:06 WALLACE RENEE Jul 30, 2022 11:01 BESSY BOSS DO Jul 31, 2022 05:06
[2022-07-30 11:34] VITALS: BP 130/59
[2022-07-30 16:01] VITALS: BP 148/67
[2022-07-30] MEDS: ENOXAPARIN 40 MG/0.4 ML (LOVENOX) SYR SC SCH (19:13)
[2022-07-30 19:45] VITALS: BP 134/64
[2022-07-30 23:47] VITALS: BP 121/60
[2022-07-31] MEDS: metroNIDAZOLE 500MG/100ML IVPB 100 ML IV SCH ×3 (02:01→17:35)
[2022-07-31 03:58] VITALS: BP 123/59
[2022-07-31] MEDS: LACTATED RINGERS 1,000 ML IV SCH ×2 (06:48→16:54)
[2022-07-31 06:53] LABS: HEMATOCRIT 29 % (40-54); HEMOGLOBIN 9.3 g/dL (13.3-17.7); MEAN CORPUSCULAR HEMOGLOBIN 30 pg (25-34); MEAN CORPUSCULAR HGB CONC 32 g/dL (32-36); MEAN CORPUSCULAR VOLUME 93 fL (80-99); MEAN PLATELET VOLUME 9.5 fL (9.0-12.2); PLATELET COUNT 204 10^3/uL (130-400); WHITE BLOOD COUNT 7.3 10^3/uL (4.3-11.0)
[2022-07-31 07:04] LABS: ALBUMIN 2.6 GM/DL (3.2-4.5); POTASSIUM 3.4 MMOL/L (3.6-5.0)
[2022-07-31 07:06] LABS: CALCIUM 8.1 MG/DL (8.5-10.1)
[2022-07-31 07:07] LABS: TOTAL PROTEIN 5.4 GM/DL (6.4-8.2)
[2022-07-31 07:11] LABS: CREATININE SERUM 0.81 MG/DL (0.60-1.30)
[2022-07-31 07:13] LABS: MAGNESIUM 1.9 MG/DL (1.6-2.4)
--- NOTE | 2022-07-31 07:15 | Progress Note - Surgery ---
JULISA MOREL 07/31/22 0715: Subjective Date Seen by a Provider: Jul 31, 2022 Subjective/Events-last exam Post-op day 6 of resection of rectal mass. Patient doesn't complain of any abdominal pain, and the incisions are intact and healing well.Pt is doing well with only concern of why nurse wasn't able to draw his blood this morning. Pt states that he was told that he was clotting and the blood was coming out slow. Pt ambulated 4-5 times yesterday and slept well throughout the night. Pt currently is NPO and has some sinus congestion. Pt continues to spit up phlegm. Ware checked today had concentrated urine with the consistency being similar to yesterday. Total output was 150mL which is decreased from yesterday; calculated rate was 0.01ml/kg/hr yesterday and today's rate since midnight is 0.009ml/kg/hr. NG tube drained 400mL today, EMILY drained 70mL with a serous consistency. Ostomy had output comparable to yesterday. Colostomy education was given yesterday. Review of Systems General: No Chills, No Night Sweats HEENT: No Head Aches; Sinus Congestion Pulmonary: No Dyspnea, No Cough Cardiovascular: No: Chest Pain, Palpitations, Edema Gastrointestinal: No: Nausea, Vomiting, Abdominal Pain, Diarrhea Neurological: No: Weakness, Numbness Objective Exam Vital Signs Date Time Temp Pulse Resp B/P (MAP) Pulse Ox O2 Delivery O2 Flow Rate FiO2 07/31/22 03:58 36.9 65 18 123/59 (80) 96 Room Air 07/30/22 23:47 36.6 62 18 121/60 (80) 96 Room Air 07/30/22 19:45 36.6 64 18 134/64 (87) 97 Room Air 07/30/22 19:13 Room Air 07/30/22 16:01 36.7 65 16 148/67 (94) 96 Room Air 07/30/22 11:34 37.2 59 18 130/59 (82) 96 Room Air 07/30/22 08:00 36.4 58 18 125/62 (83) 97 Room Air 07/30/22 08:00 Room Air I & O 07/31/22 07:00 Intake Total 2400 ml Output Total 2505 ml Balance -105 ml Capillary Refill : General Appearance: No Apparent Distress, Chronically ill HEENT: PERRL/EOMI, Normal ENT Inspection Neck: Full Range of Motion, Non Tender Respiratory: Chest Non Tender, No Accessory Muscle Use, No Respiratory Distress Cardiovascular: Regular Rate, Rhythm, No JVD Peripheral Pulses: 2+ Radial Pulses (R), 2+ Radial Pulses (L) Gastrointestinal: soft, tenderness (incisional, colostomy pink minimal slight liquid stool) Extremity: Normal Capillary Refill, Non Tender Neurologic/Psychiatric: Alert, Oriented x3 Skin: Normal Color, Warm/Dry Lymphatic: No Adenopathy Results Lab Laboratory Tests 07/31/22 06:48: White Blood Count 7.3, Red Blood Count 3.13L, Hemoglobin 9.3L, Hematocrit 29L, Mean Corpuscular Volume 93, Mean Corpuscular Hemoglobin 30, Mean Corpuscular Hemoglobin Concent 32, Red Cell Distribution Width 15.9H, Platelet Count 204, Mean Platelet Volume 9.5, Sodium Level 147H, Potassium Level 3.4L, Chloride Level 109H, Calcium Level 8.1L, Corrected Calcium 9.2, Albumin 2.6L Microbiology 07/25/22 MRSA Screen - Final, Complete MRSA not isolated Assessment/Plan Assessment/Plan Assessment/Plan s/p low anterior resection with end colostomy anemia postoperative surgical and dilutional Monitor Hemoglobin. Pt's hemoglobin is the same as yesterday at 9.3. continue to monitor Ng tube and output from colostomy Monitor urine output continue ware. Output decreased from yesterday. Consider CT Abdomen/Pelvis to detect any pathology of Urinary system Pepcid for gi prophylaxis scd's lovenox encouraged ambulation ERWIN MINOR DO 07/31/22 0794: Subjective Subjective/Events-last exam Sitting in chair. Pain controlled. Ostomy minimal output. I calculated morning urine output from 1038-2756 at 0.48 ml/kg/hr. Ng tube in place. MInimal output from colostomy. Spitting up/emesis phlegm. Patient no new complaints. Denies n/v fever sweats chills shortness of breath or chest pain. Objective Exam General Appearance: No Apparent Distress, Chronically ill HEENT: PERRL/EOMI, Normal ENT Inspection (ng tube) Neck: Full Range of Motion, Non Tender Respiratory: Chest Non Tender, No Accessory Muscle Use, No Respiratory Distress Cardiovascular: Regular Rate, Rhythm, No JVD Gastrointestinal: soft, tenderness (incisional, colostomy pink minimal slight liquid stool, incisions c/d/i) Extremity: Normal Inspection, Non Tender Neurologic/Psychiatric: Alert, Oriented x3 Skin: Normal Color, Warm/Dry Lymphatic: No Adenopathy Assessment/Plan Assessment/Plan Assessment/Plan s/p low anterior resection with end colostomy anemia postoperative surgical and dilutional postoperative ileus Monitor Hemoglobin. continue to monitor Ng tube and output from colostomy awaiting better colostomy output before removing ng Monitor urine output continue ware. Output decreased from yesterday. Pepcid for gi prophylaxis scd's lovenox encouraged ambulation tpn/picc Supervisory-Addendum Brief Verification & Attestation Participated in pt care: history, MDM, physical Personally performed: exam, history, MDM, supervision of care Care discussed with: Medical Student Procedures: n/a Results interpretation: Verified all documentation Verification and Attestation of Medical Student E/M Service A medical student performed and documented this service in my presence. I reviewed and verified all information documented by the medical student and made modifications to such information, when appropriate. I personally performed the physical exam and medical decision making. Erwin Minor, Jul 31, 2022,23:54 JULISA MOREL Jul 31, 2022 07:15 ERWIN MINOR DO Jul 31, 2022 23:54
[2022-07-31 07:36] VITALS: BP 127/59
[2022-07-31] MEDS: cefTRIAXone 1 GM PRE-MIX 50 ML IV SCH (08:12)
[2022-07-31 10:29] LABS: PHOSPHORUS 3.3 MG/DL (2.3-4.7)
[2022-07-31 11:30] VITALS: BP 124/60
--- NOTE | 2022-07-31 12:34 | Progress Note ---
VÍCTORWALLACE 07/31/22 1234: Subjective Date Seen by a Provider: Jul 31, 2022 Time Seen by a Provider: 09:30 Subjective/Events-last exam This is a 72-year-old male who is status post partial colon resection due to colon cancer status post chemotherapy and radiation. Yesterday he was able to start ambulating and reports walking 4 or 5 times. He is not having any pain at this time other than chronic low back pain. He has not passed any flatus. He is still spitting up phlegm and saliva. Notes he is still having rhinorrhea. Potassium is still low at 3.4 after K replacement. Review of Systems HEENT: No Head Aches; Other (rhinorrhea) Pulmonary: No Dyspnea Cardiovascular: No: Chest Pain Gastrointestinal: Constipation, Other (no flatus); No: Nausea Musculoskeletal: back pain (chronic) Objective Exam Last Set of Vital Signs Vital Signs Date Time Temp Pulse Resp B/P (MAP) Pulse Ox O2 Delivery O2 Flow Rate FiO2 07/31/22 11:30 36.2 62 18 124/60 (81) 95 Room Air 07/28/22 07:41 21 07/28/22 07:38 0.00 Capillary Refill : I&O Intake and Output 07/31/22 00:00 Intake Total 2400 ml Output Total 2410 ml Balance -10 ml Intake Oral 0 ml IV Total 2400 ml Output Urine Total 525 ml Stool Total 25 ml Gastric Drainage Total 1650 ml Drainage Total 210 ml General: Alert, Oriented X3, Cooperative, No Acute Distress, Other HEENT: Atraumatic, PERRLA, EOMI Neck: Supple, No JVD Lungs: Clear to Auscultation, Normal Air Movement Heart: Regular Rate, Normal S1, Normal S2, No Murmurs Abdomen: Soft, Other (diffusely tender; colostomy with brown liquid; EMILY drain with serosangueinous drainage) Extremities: No Edema, Normal Pulses Skin: No Significant Lesion Neuro: Normal Speech Psych/Mental Status: Mental Status NL, Mood NL Results Lab Laboratory Tests 07/31/22 06:48: White Blood Count 7.3, Red Blood Count 3.13L, Hemoglobin 9.3L, Hematocrit 29L, Mean Corpuscular Volume 93, Mean Corpuscular Hemoglobin 30, Mean Corpuscular Hemoglobin Concent 32, Red Cell Distribution Width 15.9H, Platelet Count 204, Mean Platelet Volume 9.5, Sodium Level 147H, Potassium Level 3.4L, Chloride Level 109H, Carbon Dioxide Level 26, Anion Gap 12, Blood Urea Nitrogen 18, Creatinine 0.81, Estimat Glomerular Filtration Rate 93, BUN/Creatinine Ratio 22, Glucose Level 79, Calcium Level 8.1L, Corrected Calcium 9.2, Phosphorus Level 3.3, Magnesium Level 1.9, Total Bilirubin 1.0, Aspartate Amino Transf (AST/SGOT) 38H, Alanine Aminotransferase (ALT/SGPT) 22, Alkaline Phosphatase 125, Total Protein 5.4L, Albumin 2.6L, Triglycerides Level 75 Microbiology 07/25/22 MRSA Screen - Final, Complete MRSA not isolated Assessment/Plan Assessment/Plan Assess & Plan/Chief Complaint Assessment: Status post partial colon resection for colon cancer and placement of colostomy now postop ileus with nausea and vomiting requiring NG tube Abdominal pain Debility Hypokalemia Plan: Supportive care Pain control Therapy Antiemetics PT K replacement Start TPN Surgery will likely re-image BESSY BOSS DO 08/01/22 0459: Supervisory-Addendum Brief Verification & Attestation Participated in pt care: history, MDM, physical Personally performed: exam, history, MDM, supervision of care Care discussed with: Medical Student Procedures: n/a Results interpretation: Verified all documentation Verification and Attestation of Medical Student E/M Service A medical student performed and documented this service in my presence. I reviewed and verified all information documented by the medical student and made modifications to such information, when appropriate. I personally performed the physical exam and medical decision making. Bessy Boss, Aug 01, 2022,04:59 BRANDONWALLACE Jul 31, 2022 12:34 BESSY BOSS DO Aug 01, 2022 04:59
[2022-07-31] MEDS: POTASSIUM CL 10MEQ/50ML IVPB 50 ML IV SCH ×4 (13:03→16:54)
[2022-07-31 16:35] VITALS: BP 141/63
[2022-07-31] MEDS ORDERED: SODIUM ACETATE IV SCH ×11 (17:00)
[2022-07-31] MEDS ORDERED: [UNRECOGNIZED DRUG - OTHER] IV SCH ×11 (17:00)
[2022-07-31] MEDS ORDERED: SODIUM CHLORIDE IV SCH ×11 (17:00)
[2022-07-31] MEDS: 1/2 NS IV SOLUTION 1,000 ML IV SCH (17:53)
[2022-07-31] MEDS: ENOXAPARIN 40 MG/0.4 ML (LOVENOX) SYR SC SCH (20:10)
[2022-07-31 23:01] VITALS: BP 133/64
[2022-08-01] MEDS: metroNIDAZOLE 500MG/100ML IVPB 100 ML IV SCH ×3 (01:19→16:41)
[2022-08-01 03:29] VITALS: BP 145/69
[2022-08-01] MEDS: 1/2 NS IV SOLUTION 1,000 ML IV SCH ×2 (05:37→17:22)
[2022-08-01 05:45] LABS: ALBUMIN 2.5 GM/DL (3.2-4.5)
[2022-08-01 05:46] LABS: POTASSIUM 3.5 MMOL/L (3.6-5.0)
[2022-08-01 05:47] LABS: CALCIUM 7.8 MG/DL (8.5-10.1)
[2022-08-01 05:48] LABS: TOTAL PROTEIN 5.2 GM/DL (6.4-8.2)
[2022-08-01 05:50] LABS: BILIRUBIN,TOTAL 0.7 MG/DL (0.1-1.0)
[2022-08-01 05:51] LABS: PHOSPHORUS 2.6 MG/DL (2.3-4.7)
[2022-08-01 05:52] LABS: CREATININE SERUM 0.82 MG/DL (0.60-1.30)
[2022-08-01 05:54] LABS: MAGNESIUM 1.9 MG/DL (1.6-2.4)
--- NOTE | 2022-08-01 06:59 | Progress Note - Surgery ---
JULISA MOREL 08/01/22 0659: Subjective Date Seen by a Provider: Aug 01, 2022 Subjective/Events-last exam Yaritza Pope is a 72yo male currently on post-op day 7 due to rectal mass resection. Pt is currently doing well with little complaints, and incisions are dry/healing well. He has been ambulating well and in good spirit. Pt's throat has been bothering slightly, so he has been using his throat spray that has been prescribed to him. Currently rates his pain 08/21. Pt recieved TPN yesterday at 49ml/hr providing 1336 KCal w/ 90 GM protein and lipids. Urine output was 0. 3cc/kg/hr yesterday for 24hr, and 0.6cc/kg/hr for the past 8hr shift. Pt's rate is currently within normal limits. Total urine output is at 450 for the hr shift today. Pt's EMILY had an output of 50mL today with serous consistency' NG tube drained 1000mL last night at shift change, and this morning during the 8hr shift another 500mL was recorded. Per nurse, ostomy has some output, but not enough to change. Pt is still experiencing cough and phlegm. Pt states has been passing flatus. Review of Systems General: No Chills, No Night Sweats HEENT: No Head Aches, No Visual Changes, No Eye Pain Pulmonary: No Dyspnea; Cough Cardiovascular: No: Chest Pain, Palpitations, Edema Gastrointestinal: No: Nausea, Vomiting Neurological: No: Weakness, Numbness Objective Exam Vital Signs Date Time Temp Pulse Resp B/P (MAP) Pulse Ox O2 Delivery O2 Flow Rate FiO2 08/01/22 03:29 36.3 56 16 145/69 (94) 96 Room Air 07/31/22 23:01 37.3 62 16 133/64 (87) 95 Room Air 07/31/22 20:10 Room Air 07/31/22 16:35 37.0 61 16 141/63 (89) 97 Room Air 07/31/22 11:30 36.2 62 18 124/60 (81) 95 Room Air 07/31/22 08:00 Room Air 07/31/22 07:36 36.8 60 16 127/59 (81) 95 Room Air I & O 08/01/22 07:00 Intake Total 100 ml Output Total 3085 ml Balance -2985 ml Capillary Refill : General Appearance: No Apparent Distress, Chronically ill HEENT: PERRL/EOMI, Normal ENT Inspection (ng tube) Neck: Full Range of Motion, Non Tender Respiratory: Chest Non Tender, No Accessory Muscle Use, No Respiratory Distress Cardiovascular: Regular Rate, Rhythm, No JVD Peripheral Pulses: 2+ Radial Pulses (R), 2+ Radial Pulses (L) Gastrointestinal: soft, tenderness Extremity: Normal Inspection, Non Tender Neurologic/Psychiatric: Alert, Oriented x3 Skin: Normal Color, Warm/Dry Lymphatic: No Adenopathy Results Lab Laboratory Tests 07/31/22 06:48: White Blood Count 7.3, Red Blood Count 3.13L, Hemoglobin 9.3L, Hematocrit 29L, Mean Corpuscular Volume 93, Mean Corpuscular Hemoglobin 30, Mean Corpuscular Hemoglobin Concent 32, Red Cell Distribution Width 15.9H, Platelet Count 204, Mean Platelet Volume 9.5, Sodium Level 147H, Potassium Level 3.4L, Chloride Level 109H, Carbon Dioxide Level 26, Anion Gap 12, Blood Urea Nitrogen 18, Creatinine 0.81, Estimat Glomerular Filtration Rate 93, BUN/Creatinine Ratio 22, Glucose Level 79, Calcium Level 8.1L, Corrected Calcium 9.2, Phosphorus Level 3.3, Magnesium Level 1.9, Total Bilirubin 1.0, Aspartate Amino Transf (AST/SGOT) 38H, Alanine Aminotransferase (ALT/SGPT) 22, Alkaline Phosphatase 125, Total Protein 5.4L, Albumin 2.6L, Triglycerides Level 75 07/31/22 13:20: Glucometer 83 07/31/22 17:47: Glucometer 80 07/31/22 23:20: Glucometer 128H 08/01/22 05:08: Sodium Level 145, Potassium Level 3.5L, Chloride Level 111H, Carbon Dioxide Level 26, Anion Gap 8, Blood Urea Nitrogen 18, Creatinine 0.82, Estimat Glomerular Filtration Rate 92, BUN/Creatinine Ratio 22, Glucose Level 145H, Calcium Level 7.8L, Corrected Calcium 9.0, Phosphorus Level 2.6, Magnesium Level 1.9, Total Bilirubin 0.7, Aspartate Amino Transf (AST/SGOT) 43H, Alanine Aminotransferase (ALT/SGPT) 26, Alkaline Phosphatase 122, Total Protein 5.2L, Albumin 2.5L Microbiology 07/25/22 MRSA Screen - Final, Complete MRSA not isolated Assessment/Plan Assessment/Plan Assessment/Plan s/p low anterior resection with end colostomy anemia postoperative surgical and dilutional postoperative ileus Monitor Hemoglobin. continue to monitor Ng tube and output from colostomy awaiting better colostomy output before removing ng Monitor urine output continue ware. Total output is increased slightly. Pt's rate improved yesterday, and this morning is within normal limits. Pepcid for gi prophylaxis scd's lovenox encouraged ambulation tpn/picc WILFREDO MINOR DO 08/01/22 1201: Subjective Subjective/Events-last exam TPN started. Patient no significant pain. Ambulating some. Urine output improving. EMILY serous. Had one time of flatus out colostomy. Scant liquids stool. No new complaints. Nausea improved. Denies fever sweats chills shortness of breath or chest pain. Objective Exam General Appearance: No Apparent Distress, Chronically ill HEENT: PERRL/EOMI, Normal ENT Inspection (ng tube) Neck: Full Range of Motion, Non Tender Respiratory: Chest Non Tender, No Accessory Muscle Use, No Respiratory Distress Cardiovascular: Regular Rate, Rhythm, No JVD Gastrointestinal: non tender, soft; No tenderness Extremity: Normal Inspection, Non Tender Neurologic/Psychiatric: Alert, Oriented x3 Skin: Normal Color, Warm/Dry Lymphatic: No Adenopathy Assessment/Plan Assessment/Plan Assessment/Plan s/p low anterior resection with end colostomy anemia postoperative surgical and dilutional postoperative ileus Monitor Hemoglobin. continue to monitor Ng tube and output from colostomy awaiting better colostomy output before removing ng Monitor urine output continue ware. Total output is increased slightly. Pt's rate improved yesterday, and this morning is within normal limits. Pepcid for gi prophylaxis scd's lovenox encouraged ambulation tpn/picc Supervisory-Addendum Brief Verification & Attestation Participated in pt care: history, MDM, physical Personally performed: exam, history, MDM, supervision of care Care discussed with: Medical Student Procedures: n/a Results interpretation: Verified all documentation Verification and Attestation of Medical Student E/M Service A medical student performed and documented this service in my presence. I reviewed and verified all information documented by the medical student and made modifications to such information, when appropriate. I personally performed the physical exam and medical decision making. Skylar King 21, 2022,12:01 JULISA MOREL Aug 01, 2022 06:59 WILFREDO MINOR DO Aug 01, 2022 12:01
[2022-08-01 08:21] VITALS: BP 144/73
[2022-08-01] MEDS: cefTRIAXone 1 GM PRE-MIX 50 ML IV SCH (09:09)
[2022-08-01] MEDS: POTASSIUM CL 10MEQ/50ML IVPB 50 ML IV SCH ×4 (11:40→14:57)
--- NOTE | 2022-08-01 11:44 | Progress Note ---
[facility] 08/01/22 1144: Subjective Date Seen by a Provider: Aug 01, 2022 Time Seen by a Provider: 09:15 Subjective/Events-last exam This is a 72-year-old male who is status post partial colon resection due to colon cancer status post chemotherapy and radiation. Yesterday he had a PICC l ine placed and TPN was started. He was able to get up once and walk the halls yesterday. Today he notes he is passing gas but still no BM. Minimal abdominal pain rated a 0-1/10 in severity. His throat is "scratchy" which he attributes to the NG tube, chloraseptic spray helps somewhat. Potassium remains low at 3.5 despite receiving replacement, his replacement will now happen through TPN. Urine output improved with 450 cc overnight. NGT output is still high at 500 cc overnight. His colostomy has some liquid drainage but no stool. EMILY drain has serosanguinous drainage, 50 cc overnight. Review of Systems HEENT: Sinus Congestion, Sore Throat Pulmonary: No Dyspnea Cardiovascular: No: Chest Pain, Palpitations, Edema Gastrointestinal: Abdominal Pain (minimal); No: Nausea Objective Exam Last Set of Vital Signs Vital Signs Date Time Temp Pulse Resp B/P (MAP) Pulse Ox O2 Delivery O2 Flow Rate FiO2 08/01/22 08:21 36.3 62 20 144/73 (96) Room Air 08/01/22 03:29 96 07/28/22 07:41 21 07/28/22 07:38 0.00 Capillary Refill : I&O Intake and Output 08/01/22 00:00 Intake Total 1100 ml Output Total 2705 ml Balance -1605 ml Intake Oral 0 ml IV Total 1100 ml Output Urine Total 575 ml Stool Total 0 ml Gastric Drainage Total 1950 ml Drainage Total 180 ml General: Alert, Oriented X3, Cooperative, No Acute Distress, Other (NG tube draining brown liquid) HEENT: Atraumatic, PERRLA, EOMI, Mucous Memb Moist/[place] Neck: Supple, No JVD Lungs: Clear to Auscultation, Normal Air Movement Heart: Regular Rate, Normal S1, Normal S2, No Murmurs Abdomen: Soft, Other (minimal diffuse tenderness, incisions clean/dry/intact, EMILY drain with serosanguinous drainage, colostomy with brown liquid) Extremities: No Edema, Normal Pulses Skin: No Significant Lesion Neuro: Normal Speech Psych/Mental Status: Mental Status NL, Mood NL Results Lab Laboratory Tests 07/31/22 13:20: Glucometer 83 07/31/22 17:47: Glucometer 80 07/31/22 23:20: Glucometer 128H 08/01/22 05:08: Sodium Level 145, Potassium Level 3.5L, Chloride Level 111H, Carbon Dioxide Level 26, Anion Gap 8, Blood Urea Nitrogen 18, Creatinine 0.82, Estimat Glomerular Filtration Rate 92, BUN/Creatinine Ratio 22, Glucose Level 145H, Calc ium Level 7.8L, Corrected Calcium 9.0, Phosphorus Level 2.6, Magnesium Level 1.9, Total Bilirubin 0.7, Aspartate Amino Transf (AST/SGOT) 43H, Alanine Aminotransferase (ALT/SGPT) 26, Alkaline Phosphatase 122, Total Protein 5.2L, Albumin 2.5L Microbiology 07/25/22 MRSA Screen - Final, Complete MRSA not isolated Assessment/Plan Assessment/Plan Assess & Plan/Chief Complaint Assessment: Status post partial colon resection for colon cancer and placement of colostomy now postop ileus with nausea and vomiting requiring NG tube Abdominal pain - improved Debility Hypokalemia NPO Plan: Supportive care Pain control Therapy Antiemetics PT K replacement through TPN TPN awaiting better colostomy output before removing ngt KHADIJAH BOSS DO 08/02/22 0440: Supervisory-Addendum Brief Verification & Attestation Participated in pt care: history, MDM, physical Personally performed: exam, history, MDM, supervision of care Care discussed with: Medical Student Procedures: n/a Results interpretation: Verified all documentation Verification and Attestation of Medical Student E/M Service A medical student performed and documented this service in my presence. I reviewed and verified all information documented by the medical student and made modifications to such information, when appropriate. I personally performed the physical exam and medical decision making. Khadijah Boss Aug 02, 2022,04:40 WALLACE RENEE Aug 01, 2022 11:44 KHADIJAH BOSS DO Aug 02, 2022 04:40
[2022-08-01 12:21] VITALS: BP 133/66
[2022-08-01 15:56] VITALS: BP 143/71
[2022-08-01] MEDS ORDERED: SODIUM PHOSPHATE IV SCH ×10 (17:00)
[2022-08-01] MEDS ORDERED: [UNRECOGNIZED DRUG - OTHER] IV SCH ×10 (17:00)
[2022-08-01] MEDS ORDERED: POTASSIUM CHLORIDE IV SCH ×10 (17:00)
[2022-08-01] MEDS ORDERED: SODIUM ACETATE IV SCH ×10 (17:00)
[2022-08-01 19:54] VITALS: BP 125/59
[2022-08-01] MEDS: ENOXAPARIN 40 MG/0.4 ML (LOVENOX) SYR SC SCH (20:36)
[2022-08-02] VITALS: BP 152/75
[2022-08-02] MEDS: metroNIDAZOLE 500MG/100ML IVPB 100 ML IV SCH ×3 (02:29→17:15)
[2022-08-02] MEDS: 1/2 NS IV SOLUTION 1,000 ML IV SCH ×2 (02:29→16:37)
[2022-08-02 04:00] VITALS: BP 147/68
[2022-08-02 05:39] LABS: BASOPHILS % (AUTO) 0 % (0-10); EOSINOPHILS # (AUTO) 0.3 10^3/uL (0.0-0.3); EOSINOPHILS % (AUTO) 3 % (0-10); HEMATOCRIT 29 % (40-54); HEMOGLOBIN 9.3 g/dL (13.3-17.7); LYMPHOCYTES # (AUTO) 0.5 10^3/uL (1.0-4.0); LYMPHOCYTES % (AUTO) 5 % (12-44); MEAN CORPUSCULAR HEMOGLOBIN 29 pg (25-34); MEAN CORPUSCULAR HGB CONC 32 g/dL (32-36); MEAN CORPUSCULAR VOLUME 92 fL (80-99); MEAN PLATELET VOLUME 10.2 fL (9.0-12.2); MONOCYTES # (AUTO) 0.7 10^3/uL (0.0-1.0); MONOCYTES % (AUTO) 7 % (0-12); NEUTROPHILS # (AUTO) 7.7 10^3/uL (1.8-7.8); NEUTROPHILS % (AUTO) 83 % (42-75); PLATELET COUNT 198 10^3/uL (130-400); WHITE BLOOD COUNT 9.2 10^3/uL (4.3-11.0)
[2022-08-02 05:48] LABS: ALBUMIN 2.5 GM/DL (3.2-4.5); POTASSIUM 3.2 MMOL/L (3.6-5.0)
[2022-08-02 05:49] LABS: CALCIUM 7.8 MG/DL (8.5-10.1)
[2022-08-02 05:50] LABS: TOTAL PROTEIN 5.4 GM/DL (6.4-8.2)
[2022-08-02 05:52] LABS: BILIRUBIN,TOTAL 0.7 MG/DL (0.1-1.0)
[2022-08-02 05:54] LABS: CREATININE SERUM 0.7 MG/DL (0.60-1.30); PHOSPHORUS 2.8 MG/DL (2.3-4.7)
--- NOTE | 2022-08-02 06:08 | Progress Note ---
Subjective Date Seen by a Provider: Aug 02, 2022 Time Seen by a Provider: 11:00 Subjective/Events-last exam Patient doing the same No pain Lovenox maintained TPN infusing Review of Systems General: Fatigue, Malaise Gastrointestinal: Nausea Objective Exam Last Set of Vital Signs Vital Signs Date Time Temp Pulse Resp B/P (MAP) Pulse Ox O2 Delivery O2 Flow Rate FiO2 08/02/22 04:00 36.4 74 18 147/68 (94) 97 Room Air 07/28/22 07:41 21 07/28/22 07:38 0.00 Capillary Refill : I&O Intake and Output 08/02/22 00:00 Intake Total 100 ml Output Total 3920 ml Balance -3820 ml Intake Oral 0 ml IV Total 100 ml Output Urine Total 1650 ml Stool Total 0 ml Gastric Drainage Total 1350 ml Drainage Total 170 ml Other 750 ml General: Alert, Oriented X3, Cooperative, No Acute Distress Lungs: Clear to Auscultation, Normal Air Movement Heart: Regular Rate, Normal S1, Normal S2, No Murmurs Psych/Mental Status: Mental Status NL, Mood NL Results Lab Laboratory Tests 08/02/22 05:29: White Blood Count 9.2, Red Blood Count 3.18L, Hemoglobin 9.3L, Hematocrit 29L, Mean Corpuscular Volume 92, Mean Corpuscular Hemoglobin 29, Mean Corpuscular Hemoglobin Concent 32, Red Cell Distribution Width 16.0H, Platelet Count 198, Mean Platelet Volume 10.2, Immature Granulocyte % (Auto) 1, Neutrophils (%) (Auto) 83H, Lymphocytes (%) (Auto) 5L, Monocytes (%) (Auto) 7, Eosinophils (%) (Auto) 3, Basophils (%) (Auto) 0, Neutrophils # (Auto) 7.7, Lymphocytes # (Auto) 0.5L, Monocytes # (Auto) 0.7, Eosinophils # (Auto) 0.3, Basophils # (Auto) 0.0, Immature Granulocyte # (Auto) 0.1, Sodium Level 146H, Potassium Level 3.2L, Chloride Level 111H, Carbon Dioxide Level 24, Anion Gap 11, Blood Urea Nitrogen 14, Creatinine 0.70, Estimat Glomerular Filtration Rate 97, BUN/Creatinine Ratio 20, Glucose Level 161H, Calcium Level 7.8L, Corrected Calcium 9.0, Phosphorus Level 2.8, Magnesium Level 2.0, Total Bilirubin 0.7, Aspartate Amino Transf (AST/SGOT) 43H, Alanine Aminotransferase (ALT/SGPT) 30, Alkaline Phosphatase 108, Total Protein 5.4L, Albumin 2.5L Microbiology 07/25/22 MRSA Screen - Final, Complete MRSA not isolated Assessment/Plan Assessment/Plan Assess & Plan/Chief Complaint Assessment: Status post partial colon resection for colon cancer and placement of colostomy now postop ileus with nausea and vomiting requiring NG tube Abdominal pain - improved Debility Hypokalemia NPO Plan: Supportive care Pain control Therapy Antiemetics PT K replacement through TPN TPN awaiting better colostomy output before removing ngt KHADIJAH BOSS DO Aug 02, 2022 06:08
--- NOTE | 2022-08-02 06:51 | Progress Note - Surgery ---
JULISA MOREL 08/02/22 0651: Subjective Date Seen by a Provider: Aug 02, 2022 Subjective/Events-last exam Yaritza Pope is a 72yp male presenting day 8 post-operation of resection colon mass. Last night around midnight pt presenting with wet gown after coughing last night, and upon examination there was vin red blood from bottom stables of midline incision and ALEXX drain pulling vin red blood. Nurse placed 2x2 and island dressing placed over abdomen incision at about midnight, and then dressing changed at 4am. ALEXX dressing was changed as well and ALEXX emptied 20mL vin red blood drained at that time. Vitals are currently stable except elevated blood pressure at 147/68 (94). Pt states that he is not doing well today. Pt states he is coughing up blood and when he coughs his pain is about 4/10 in abdomen region.Urine rate is at .98cc/kg/hr which is elevated from yesterday; Total urine was 500 via ware during 8hr shift. ALEXX drained 75 ml serosangenous; NG tube drained 850mL yesterday from [id number]; 500ml 8hr shift. Pt still has sinus congestion. Review of Systems General: No Chills, No Night Sweats HEENT: No Head Aches, No Visual Changes, No Eye Pain; Sinus Congestion Pulmonary: No Dyspnea; Cough Cardiovascular: No: Chest Pain, Palpitations, Edema Gastrointestinal: Abdominal Pain (4/10 oain scale when coughing); No: Nausea, Vomiting Neurological: No: Weakness, Numbness Objective Exam Vital Signs Date Time Temp Pulse Resp B/P (MAP) Pulse Ox O2 Delivery O2 Flow Rate FiO2 08/02/22 04:00 36.4 74 18 147/68 (94) 97 Room Air 08/02/22 00:00 36.4 67 18 152/75 (100) 96 Room Air 08/01/22 20:00 Room Air 08/01/22 19:54 37.2 60 20 125/59 (81) 95 Room Air 08/01/22 15:56 37.2 65 16 143/71 (95) 95 Room Air 08/01/22 12:21 36.7 62 19 133/66 (88) 95 Room Air 08/01/22 08:21 36.3 62 20 144/73 (96) Room Air 08/01/22 08:00 Room Air I & O 08/02/22 07:00 Intake Total 0 ml Output Total 3995 ml Balance -3995 ml Capillary Refill : General Appearance: No Apparent Distress, Chronically ill HEENT: PERRL/EOMI, Normal ENT Inspection (ng tube) Neck: Full Range of Motion, Non Tender Respiratory: Chest Non Tender, No Accessory Muscle Use, No Respiratory Distress Cardiovascular: Regular Rate, Rhythm, No JVD Peripheral Pulses: 2+ Radial Pulses (R), 2+ Radial Pulses (L) Gastrointestinal: soft, tenderness Extremity: Normal Inspection, Non Tender Neurologic/Psychiatric: Alert, Oriented x3 Skin: Normal Color, Warm/Dry Lymphatic: No Adenopathy Results Lab Laboratory Tests 08/02/22 05:29: White Blood Count 9.2, Red Blood Count 3.18L, Hemoglobin 9.3L, Hematocrit 29L, Mean Corpuscular Volume 92, Mean Corpuscular Hemoglobin 29, Mean Corpuscular Hemoglobin Concent 32, Red Cell Distribution Width 16.0H, Platelet Count 198, Mean Platelet Volume 10.2, Immature Granulocyte % (Auto) 1, Neutrophils (%) (Auto) 83H, Lymphocytes (%) (Auto) 5L, Monocytes (%) (Auto) 7, Eosinophils (%) (Auto) 3, Basophils (%) (Auto) 0, Neutrophils # (Auto) 7.7, Lymphocytes # (Auto) 0.5L, Monocytes # (Auto) 0.7, Eosinophils # (Auto) 0.3, Basophils # (Auto) 0.0, Immature Granulocyte # (Auto) 0.1, Sodium Level 146H, Potassium Level 3.2L, Chloride Level 111H, Carbon Dioxide Level 24, Anion Gap 11, Blood Urea Nitrogen 14, Creatinine 0.70, Estimat Glomerular Filtration Rate 97, BUN/Creatinine Ratio 20, Glucose Level 161H, Calcium Level 7.8L, Corrected Calcium 9.0, Phosphorus Level 2.8, Magnesium Level 2.0, Total Bilirubin 0.7, Aspartate Amino Transf (AST/SGOT) 43H, Alanine Aminotransferase (ALT/SGPT) 30, Alkaline Phosphatase 108, Total Protein 5.4L, Albumin 2.5L Microbiology 07/25/22 MRSA Screen - Final, Complete MRSA not isolated Assessment/Plan Assessment/Plan Assessment/Plan s/p low anterior resection with end colostomy anemia postoperative surgical and dilutional postoperative ileus Consider continuing IV abx 3 days Monitor Hemoglobin. continue to monitor Ng tube and output from colostomy awaiting better colostomy output before removing ng Consider possible KUB. Monitor urine output continue ware. Total output is increased slightly. Pt's rate improved yesterday, and this morning is within normal limits. Consider IV Pepcid for gi prophylaxis scd's lovenox encouraged ambulation tpn/picc WILFREDO MINOR DO 08/02/221926: Subjective Subjective/Events-last exam Pain controlled. Colostomy output scant. Coughing fit overnight and had some bleeding from incision afterwards and some blood coming from alexx drain. This has stopped now. Urine output improving. Ambulating and using IS. NG tube and on TPN. Objective Exam General Appearance: No Apparent Distress, Chronically ill HEENT: PERRL/EOMI, Normal ENT Inspection Neck: Normal Inspection, Supple Respiratory: Chest Non Tender, No Accessory Muscle Use, No Respiratory Distress Cardiovascular: Regular Rate, Rhythm, No JVD Gastrointestinal: soft, tenderness (incision c/d/i no signs of infection, alexx drain serosang) Extremity: Non Tender, No Calf Tenderness Neurologic/Psychiatric: Alert, Oriented x3 Skin: Normal Color, Warm/Dry Lymphatic: No Adenopathy Assessment/Plan Assessment/Plan Assessment/Plan s/p low anterior resection with end colostomy anemia postoperative surgical and dilutional postoperative ileus continuing IV abx 3 days Monitor Hemoglobin. continue Ng tube to liws awaiting better colostomy output before removing ng KUB in am. Monitor urine output continue ware. Total output is increased slightly. Pt's rate improved yesterday, and this morning is within normal limits. IV Pepcid for gi prophylaxis scd's lovenox encouraged ambulation tpn/picc Supervisory-Addendum Brief Verification & Attestation Participated in pt care: history, MDM, physical Personally performed: exam, history, MDM, supervision of care Care discussed with: Medical Student Procedures: n/a Results interpretation: Verified all documentation Verification and Attestation of Medical Student E/M Service A medical student performed and documented this service in my presence. I reviewed and verified all information documented by the medical student and made modifications to such information, when appropriate. I personally performed the physical exam and medical decision making. Wilfredo Minor, Aug 02, 2022,19:26 JULISA MOREL Aug 02, 2022 06:51 WILFREDO MINOR DO Aug 02, 2022 19:27
[2022-08-02 07:46] VITALS: BP 143/67
[2022-08-02] MEDS: cefTRIAXone 1 GM PRE-MIX 50 ML IV SCH (08:10)
[2022-08-02] MEDS: FAMOTIDINE 20MG/2ML IV (PEPCID) IVP SCH ×2 (08:10→21:39)
[2022-08-02] MEDS ORDERED: NS IV 500 ML 500 ML IV PRN (08:30)
[2022-08-02] MEDS: POTASSIUM CL 10MEQ/50ML IVPB 50 ML IV SCH ×4 (09:18→13:20)
[2022-08-02 11:19] VITALS: BP 138/65
[2022-08-02 16:32] VITALS: BP 148/77
[2022-08-02] MEDS: POTASSIUM ACETATE IV SCH ×10 (16:37)
[2022-08-02] MEDS: [UNRECOGNIZED DRUG - OTHER] IV SCH ×10 (16:37)
[2022-08-02] MEDS: POTASSIUM CHLORIDE IV SCH ×10 (16:37)
[2022-08-02] MEDS ORDERED: 1/2 NS IV SOLUTION 1,000 ML IV SCH (17:00)
[2022-08-02 20:12] VITALS: BP 134/70
[2022-08-02] MEDS: ENOXAPARIN 40 MG/0.4 ML (LOVENOX) SYR SC SCH (21:39)
[2022-08-03 00:15] VITALS: BP 131/63
[2022-08-03] MEDS: metroNIDAZOLE 500MG/100ML IVPB 100 ML IV SCH ×3 (02:33→17:03)
[2022-08-03 03:56] VITALS: BP 138/65
--- NOTE | 2022-08-03 04:57 | Progress Note ---
Subjective Date Seen by a Provider: Aug 03, 2022 Time Seen by a Provider: 11:00 Subjective/Events-last exam Patient doing well TPN infusing Walking around with the help Labs reviewed Small bowel series performed today Objective Exam Last Set of Vital Signs Vital Signs Date Time Temp Pulse Resp B/P (MAP) Pulse Ox O2 Delivery O2 Flow Rate FiO2 08/03/22 03:56 36.5 76 16 138/65 (89) 97 Room Air 07/28/22 07:41 21 07/28/22 07:38 0.00 Capillary Refill : I&O Intake and Output 08/03/22 00:00 Intake Total 0 ml Output Total 2745 ml Balance -2745 ml Intake Oral 0 ml Output Urine Total 1400 ml Stool Total 10 ml Gastric Drainage Total 1100 ml Drainage Total 235 ml Results Lab Laboratory Tests 08/02/22 05:29: White Blood Count 9.2, Red Blood Count 3.18L, Hemoglobin 9.3L, Hematocrit 29L, Mean Corpuscular Volume 92, Mean Corpuscular Hemoglobin 29, Mean Corpuscular Hemoglobin Concent 32, Red Cell Distribution Width 16.0H, Platelet Count 198, Mean Platelet Volume 10.2, Immature Granulocyte % (Auto) 1, Neutrophils (%) (Auto) 83H, Lymphocytes (%) (Auto) 5L, Monocytes (%) (Auto) 7, Eosinophils (%) (Auto) 3, Basophils (%) (Auto) 0, Neutrophils # (Auto) 7.7, Lymphocytes # (Auto) 0.5L, Monocytes # (Auto) 0.7, Eosinophils # (Auto) 0.3, Basophils # (Auto) 0.0, Immature Granulocyte # (Auto) 0.1, Sodium Level 146H, Potassium Level 3.2L, Chloride Level 111H, Carbon Dioxide Level 24, Anion Gap 11, Blood Urea Nitrogen 14, Creatinine 0.70, Estimat Glomerular Filtration Rate 97, BUN/Creatinine Ratio 20, Glucose Level 161H, Calcium Level 7.8L, Corrected Calcium 9.0, Phosphorus Level 2.8, Magnesium Level 2.0, Total Bilirubin 0.7, Aspartate Amino Transf (AST/SGOT) 43H, Alanine Aminotransferase (ALT/SGPT) 30, Alkaline Phosphatase 108, Total Protein 5.4L, Albumin 2.5L Microbiology 07/25/22 MRSA Screen - Final, Complete MRSA not isolated Assessment/Plan Assessment/Plan Assess & Plan/Chief Complaint Assessment: Status post partial colon resection for colon cancer and placement of colostomy now postop ileus with nausea and vomiting requiring NG tube Abdominal pain - improved Debility Hypokalemia NPO Plan: Supportive care Pain control Therapy Antiemetics PT K replacement through TPN TPN awaiting better colostomy output before removing ngt KHADIJAH BOSS DO Aug 03, 2022 04:57
[2022-08-03 05:41] LABS: HEMATOCRIT 28 % (40-54); HEMOGLOBIN 9.2 g/dL (13.3-17.7); MEAN CORPUSCULAR HEMOGLOBIN 30 pg (25-34); MEAN CORPUSCULAR HGB CONC 33 g/dL (32-36); MEAN CORPUSCULAR VOLUME 92 fL (80-99); MEAN PLATELET VOLUME 10.3 fL (9.0-12.2); PLATELET COUNT 174 10^3/uL (130-400); WHITE BLOOD COUNT 8.7 10^3/uL (4.3-11.0)
[2022-08-03] MEDS ORDERED: POTASSIUM CL 10MEQ/50ML IVPB 50 ML IV SCH (06:00)
[2022-08-03] MEDS ORDERED: KCL 20 MEQ TAB (K-DUR) PO SCH (06:00)
[2022-08-03 06:02] LABS: ALBUMIN 2.3 GM/DL (3.2-4.5); POTASSIUM 3.8 MMOL/L (3.6-5.0)
[2022-08-03 06:03] LABS: CALCIUM 7.6 MG/DL (8.5-10.1)
[2022-08-03 06:05] LABS: TOTAL PROTEIN 5.1 GM/DL (6.4-8.2)
[2022-08-03 06:06] LABS: BILIRUBIN,TOTAL 0.7 MG/DL (0.1-1.0)
[2022-08-03 06:08] LABS: CREATININE SERUM 0.68 MG/DL (0.60-1.30); PHOSPHORUS 2.9 MG/DL (2.3-4.7)
--- NOTE | 2022-08-03 07:15 | Progress Note - Surgery ---
MATTHEW MORELEB 08/03/22 0715: Subjective Date Seen by a Provider: Aug 03, 2022 Subjective/Events-last exam Pt is doing well. Pt doesn't have any pain at rest and when he coughs its about a 3-4/10. Pt states he isn't coughing as much but still has sinus congestion and drainage to where he has to spit. Pt notes of fome throat pain which he uses his spray for. Pt's urine output is doing well at a rate of 1.06. Pt is able to ambulate and ambulated about 2x yesterday. Pt ALEXX drained 80mL serosanginous, NG tube 200mL, Urine total 350mL in last 8hrs. Ostomy output seems to about the same as yesterday. Review of Systems General: No Chills, No Night Sweats, No Fatigue HEENT: No Head Aches, No Visual Changes, No Eye Pain Pulmonary: No Dyspnea; Cough Cardiovascular: No: Chest Pain, Palpitations, Edema Gastrointestinal: Abdominal Pain; No: Nausea, Vomiting Neurological: No: Weakness, Numbness Objective Exam Vital Signs Date Time Temp Pulse Resp B/P (MAP) Pulse Ox O2 Delivery O2 Flow Rate FiO2 08/03/22 03:56 36.5 76 16 138/65 (89) 97 Room Air 08/03/22 00:15 37.0 74 16 131/63 (85) 98 Room Air 08/02/22 20:12 36.4 68 16 134/70 (91) 97 Room Air 08/02/22 20:00 Room Air 08/02/22 16:32 36.8 67 16 148/77 (100) 98 Room Air 08/02/22 11:19 36.6 67 18 138/65 (89) 99 Room Air 08/02/22 07:46 36.7 69 18 143/67 (92) 97 Room Air 08/02/22 07:42 Room Air I & O 08/03/22 07:00 Intake Total 0 ml Output Total 2300 ml Balance -2300 ml Capillary Refill : General Appearance: No Apparent Distress, Chronically ill HEENT: PERRL/EOMI, Normal ENT Inspection Neck: Normal Inspection, Supple Respiratory: Chest Non Tender, No Accessory Muscle Use, No Respiratory Distress Cardiovascular: Regular Rate, Rhythm, No JVD Peripheral Pulses: 2+ Radial Pulses (R), 2+ Radial Pulses (L) Gastrointestinal: soft, tenderness (incision slightly moist; no signs of infection, alexx drain serosang) Extremity: Non Tender, No Calf Tenderness Neurologic/Psychiatric: Alert, Oriented x3 Skin: Normal Color, Warm/Dry Lymphatic: No Adenopathy Results Lab Laboratory Tests 08/03/22 05:25: Glucometer 142H 08/03/22 05:30: White Blood Count 8.7, Red Blood Count 3.06L, Hemoglobin 9.2L, Hematocrit 28L, Mean Corpuscular Volume 92, Mean Corpuscular Hemoglobin 30, Mean Corpuscular Hemoglobin Concent 33, Red Cell Distribution Width 16.1H, Platelet Count 174, Mean Platelet Volume 10.3, Sodium Level 140, Potassium Level 3.8, Chloride Level 110H, Carbon Dioxide Level 24, Anion Gap 6, Blood Urea Nitrogen 15, Creatinine 0.68, Estimat Glomerular Filtration Rate 98, BUN/Creatinine Ratio 22, Glucose Level 145H, Calcium Level 7.6L, Corrected Calcium 9.0, Phosphorus Level 2.9, Magnesium Level 2.0, Total Bilirubin 0.7, Aspartate Amino Transf (AST/SGOT) 40H, Alanine Aminotransferase (ALT/SGPT) 31, Alkaline Phosphatase 108, Total Protein 5.1L, Albumin 2.3L Microbiology 07/25/22 MRSA Screen - Final, Complete MRSA not isolated Assessment/Plan Assessment/Plan Assessment/Plan s/p low anterior resection with end colostomy anemia postoperative surgical and dilutional postoperative ileus continuing IV abx 3 days Monitor Hemoglobin. continue Ng tube to liws awaiting better colostomy output before removing ng KUB in am. Monitor urine output continue ware. Pt's rate improved yesterday, and this morning is within normal limits. IV Pepcid for gi prophylaxis scd's lovenox encouraged ambulation tpn/picc WILFREDO REN DO 08/03/22 1344: Subjective Subjective/Events-last exam Patient having slightly more output from colostomy. NPO on TPN. Still with cough. Ng tube to LIWS. Urine output good. Denies n/v fever sweats chills shortness of breath or chest pain. Ambulating and using IS. Objective Exam General Appearance: No Apparent Distress, Chronically ill HEENT: PERRL/EOMI, Normal ENT Inspection Neck: Normal Inspection Respiratory: Chest Non Tender, No Accessory Muscle Use, No Respiratory Distress Cardiovascular: Regular Rate, Rhythm Gastrointestinal: soft, tenderness (incision slight serous fluid from it. no signs of infection, alexx drain serosang) Extremity: Non Tender, No Calf Tenderness Neurologic/Psychiatric: Alert, Oriented x3 Skin: Normal Color, Warm/Dry Lymphatic: No Adenopathy Assessment/Plan Assessment/Plan Assessment/Plan s/p low anterior resection with end colostomy anemia postoperative surgical and dilutional postoperative ileus KUB today no issue Monitor Hemoglobin. Clamp Ng tube if nausea will hook back up. Dc ware IV Pepcid for gi prophylaxis scd's lovenox encouraged ambulation tpn/picc Supervisory-Addendum Brief Verification & Attestation Participated in pt care: history, MDM, physical Personally performed: exam, history, MDM, supervision of care Care discussed with: Medical Student Procedures: n/a Results interpretation: Verified all documentation Verification and Attestation of Medical Student E/M Service A medical student performed and documented this service in my presence. I reviewed and verified all information documented by the medical student and made modifications to such information, when appropriate. I personally performed the physical exam and medical decision making. Wilfredo Ren, Aug 03, 2022,13:44 JULISA MOREL Aug 03, 2022 07:15 WILFREDO REN DO Aug 03, 2022 13:44
[2022-08-03] MEDS: cefTRIAXone 1 GM PRE-MIX 50 ML IV SCH (07:34)
[2022-08-03] MEDS: FAMOTIDINE 20MG/2ML IV (PEPCID) IVP SCH ×2 (07:34→19:45)
[2022-08-03] MEDS: 1/2 NS IV SOLUTION 1,000 ML IV SCH (07:36)
[2022-08-03 08:06] VITALS: BP 135/68
[2022-08-03 11:18] VITALS: BP 125/68
--- NOTE | 2022-08-03 11:18 | Diagnostic Imaging Report ---
INDICATION: Postop. FINDINGS: KUB shows drain within the pelvis. There are arpita along the lower abdomen. No other radiopaque foreign bodies noted. IMPRESSION: Postop KUB as described. Dictated by: Dictated on workstation # [id number]
[2022-08-03 15:21] VITALS: BP 128/74
[2022-08-03] MEDS: POTASSIUM ACETATE IV SCH ×10 (16:20)
[2022-08-03] MEDS: POTASSIUM CHLORIDE IV SCH ×10 (16:20)
[2022-08-03] MEDS: [UNRECOGNIZED DRUG - OTHER] IV SCH ×10 (16:20)
[2022-08-03 19:16] VITALS: BP 120/73
[2022-08-03] MEDS: ENOXAPARIN 40 MG/0.4 ML (LOVENOX) SYR SC SCH (19:45)
[2022-08-04] VITALS (7 sets, daily range): BP systolic 106–138; BP diastolic 59–70
[2022-08-04] MEDS: 1/2 NS IV SOLUTION 1,000 ML IV SCH ×3 (00:57→16:29)
[2022-08-04] MEDS: metroNIDAZOLE 500MG/100ML IVPB 100 ML IV SCH ×3 (01:09→16:29)
--- NOTE | 2022-08-04 07:55 | Progress Note ---
Subjective Date Seen by a Provider: Aug 04, 2022 Time Seen by a Provider: 11:30 Subjective/Events-last exam No major changes Started NG tube back again to low suction Labs reviewed Lovenox maintain Pain control Review of Systems Gastrointestinal: Nausea, Abdominal Pain Objective Exam Last Set of Vital Signs Vital Signs Date Time Temp Pulse Resp B/P (MAP) Pulse Ox O2 Delivery O2 Flow Rate FiO2 08/04/22 07:43 36.2 75 22 138/70 (92) 98 Room Air Capillary Refill : I&O Intake and Output 08/04/22 00:00 Intake Total 0 ml Output Total 1670 ml Balance -1670 ml Intake Oral 0 ml Output Urine Total 950 ml Gastric Drainage Total 500 ml Drainage Total 220 ml # Voids 3 General: Alert, Oriented X3, Cooperative, No Acute Distress Lungs: Clear to Auscultation, Normal Air Movement Heart: Regular Rate, Normal S1, Normal S2, No Murmurs Psych/Mental Status: Mental Status NL, Mood NL Results Lab Laboratory Tests 08/04/22 05:29: Glucometer 141H Microbiology 07/25/22 MRSA Screen - Final, Complete MRSA not isolated Assessment/Plan Assessment/Plan Assess & Plan/Chief Complaint Assessment: Status post partial colon resection for colon cancer and placement of colostomy now postop ileus with nausea and vomiting requiring NG tube Abdominal pain - improved Debility Hypokalemia resolved NPO maintain on TPN Plan: Supportive care Pain control Therapy Antiemetics PT K replacement through TPN TPN awaiting better colostomy output before removing ngt KHADIJAH BOSS DO Aug 04, 2022 07:55
[2022-08-04] MEDS: cefTRIAXone 1 GM PRE-MIX 50 ML IV SCH (08:11)
[2022-08-04] MEDS: FAMOTIDINE 20MG/2ML IV (PEPCID) IVP SCH ×2 (08:11→19:09)
--- NOTE | 2022-08-04 11:45 | Progress Note ---
Subjective Date Seen by a Provider: Aug 04, 2022 Time Seen by a Provider: 11:10 Subjective/Events-last exam Patient seen with Dr. Baires. Patient only reports some pain with coughing. Denies any nausea or vomiting. Reports up to bedside to use urinal. Objective Exam Vital Signs Date Time Temp Pulse Resp B/P (MAP) Pulse Ox O2 Delivery O2 Flow Rate FiO2 08/04/22 11:21 36.4 73 22 119/59 (79) 98 Room Air 08/04/22 08:20 Room Air 08/04/22 07:43 36.2 75 22 138/70 (92) 98 Room Air 08/04/22 03:33 36.7 75 16 112/67 (82) 97 Room Air 08/04/22 00:23 36.4 71 16 133/65 (87) 97 Room Air 08/03/22 20:00 Room Air 08/03/22 19:16 36.3 70 20 120/73 (89) 98 Room Air 08/03/22 15:21 36.3 70 14 128/74 (92) 100 Room Air I & O 08/04/22 07:00 Intake Total 0 ml Output Total 1675 ml Balance -1675 ml Capillary Refill : General Appearance: No Apparent Distress, WD/WN Neck: Normal Inspection, Supple Respiratory: No Accessory Muscle Use, No Respiratory Distress Gastrointestinal: soft, tenderness, other (EMILY drain with clear SS fluid. Incisions C/D/I. Colostomy pink and moist with minimal old liqud blood in bag. NGT in place) Extremity: Normal Inspection, Normal Range of Motion Neurologic/Psychiatric: Alert, Oriented x3 Skin: Normal Color, Warm/Dry Results Lab Laboratory Tests 08/04/22 05:29: Glucometer 141H Microbiology 07/25/22 MRSA Screen - Final, Complete MRSA not isolated Assessment/Plan Assessment/Plan Assess & Plan/Chief Complaint A 72 year old male who is s/p low anterior resection with end colostomy for rectal mass, ileus VSS Continue IV fluids, pain and nausea meds NGT and TPN until more function from colostomy GI prophylaxis DVT prophylaxis with SCDs and Lovenox Encourage ambulation MAYRA NELSON APRN Aug 04, 2022 11:45
[2022-08-04] MEDS: POTASSIUM ACETATE IV SCH ×10 (16:29)
[2022-08-04] MEDS: POTASSIUM CHLORIDE IV SCH ×10 (16:29)
[2022-08-04] MEDS: [UNRECOGNIZED DRUG - OTHER] IV SCH ×10 (16:29)
[2022-08-04] MEDS: ENOXAPARIN 40 MG/0.4 ML (LOVENOX) SYR SC SCH (19:09)
[2022-08-05] MEDS: metroNIDAZOLE 500MG/100ML IVPB 100 ML IV SCH ×3 (01:59→17:03)
--- NOTE | 2022-08-05 06:01 | Progress Note ---
Subjective Date Seen by a Provider: Aug 05, 2022 Time Seen by a Provider: 11:00 Subjective/Events-last exam Advancing diet and tolerated TPN still infusing Supportive care will continue Check labs tomorrow Review of Systems General: Fatigue, Malaise Objective Exam Last Set of Vital Signs Vital Signs Date Time Temp Pulse Resp B/P (MAP) Pulse Ox O2 Delivery O2 Flow Rate FiO2 08/04/22 23:22 36.7 80 20 106/62 (77) 97 Room Air Capillary Refill : I&O Intake and Output 08/05/22 00:00 Intake Total 300 ml Output Total 1835 ml Balance -1535 ml Intake Oral 300 ml Output Urine Total 1175 ml Stool Total 250 ml Gastric Drainage Total 260 ml Drainage Total 150 ml General: Alert, Oriented X3, Cooperative, No Acute Distress Lungs: Clear to Auscultation, Normal Air Movement Heart: Regular Rate, Normal S1, Normal S2, No Murmurs Psych/Mental Status: Mental Status NL, Mood NL Results Lab Microbiology 07/25/22 MRSA Screen - Final, Complete MRSA not isolated Assessment/Plan Assessment/Plan Assess & Plan/Chief Complaint Assessment: Status post partial colon resection for colon cancer and placement of colostomy now postop ileus with nausea and vomiting requiring NG tube now DC'd and advancing diet 08/05/2022 Abdominal pain - improved Debility Hypokalemia resolved Plan: Supportive care Pain control Therapy Antiemetics PT DC TPN KHADIJAH BOSS DO Aug 05, 2022 06:01
[2022-08-05 07:53] VITALS: BP 107/56
[2022-08-05] MEDS: 1/2 NS IV SOLUTION 1,000 ML IV SCH (08:42)
[2022-08-05] MEDS: FAMOTIDINE 20MG/2ML IV (PEPCID) IVP SCH ×2 (08:43→20:20)
[2022-08-05] MEDS: cefTRIAXone 1 GM PRE-MIX 50 ML IV SCH (08:45)
--- NOTE | 2022-08-05 09:39 | Progress Note ---
Subjective Date Seen by a Provider: Aug 05, 2022 Time Seen by a Provider: 09:15 Subjective/Events-last exam Patient seen with Dr. Baires. Patient reports doing well. Denies any pain, nausea, or vomiting. Tolerating clear liquid diet. Having stool in colostomy Objective Exam Vital Signs Date Time Temp Pulse Resp B/P (MAP) Pulse Ox O2 Delivery O2 Flow Rate FiO2 08/05/22 07:53 36.2 71 18 107/56 (73) 94 Room Air 08/05/22 07:12 Room Air 08/04/22 23:22 36.7 80 20 106/62 (77) 97 Room Air 08/04/22 19:20 36.8 78 19 124/63 (83) 98 Room Air 08/04/22 19:08 Room Air 08/04/22 15:52 36.6 75 21 124/60 (81) 98 Room Air 08/04/22 11:21 36.4 73 22 119/59 (79) 98 Room Air I & O 08/05/22 07:00 Intake Total 500 ml Output Total 1760 ml Balance -1260 ml Capillary Refill : General Appearance: No Apparent Distress, WD/WN Neck: Normal Inspection, Supple Respiratory: No Accessory Muscle Use, No Respiratory Distress Gastrointestinal: normal bowel sounds, non tender, soft, other (Colostomy functioning with liquid stool in bag. Abdominal incisions C/D/I) Extremity: Normal Inspection, Normal Range of Motion Neurologic/Psychiatric: Alert, Oriented x3 Skin: Normal Color, Warm/Dry Results Lab Laboratory Tests 08/05/22 06:55: Glucometer 132H Microbiology 07/25/22 MRSA Screen - Final, Complete MRSA not isolated Assessment/Plan Assessment/Plan Assess & Plan/Chief Complaint A 72 year old male who is s/p low anterior resection with end colostomy for rectal mass, ileus VSS Continue IV fluids, pain and nausea meds Colostomy functioning - tolerating clear liquid diet - will advance diet to regular GI prophylaxis DVT prophylaxis with SCDs and Lovenox Encourage ambulation MAYRA NELSON APRN Aug 05, 2022 09:39
[2022-08-05 11:47] VITALS: BP 115/58
[2022-08-05 15:47] VITALS: BP 118/59
[2022-08-05] MEDS: ENOXAPARIN 40 MG/0.4 ML (LOVENOX) SYR SC SCH (20:20)
[2022-08-05 21:39] VITALS: BP 126/61
[2022-08-05 23:30] VITALS: BP 95/56
[2022-08-06] MEDS: 1/2 NS IV SOLUTION 1,000 ML IV SCH ×2 (01:54→17:17)
[2022-08-06 05:25] LABS: BASOPHILS % (AUTO) 1 % (0-10); EOSINOPHILS # (AUTO) 0.2 10^3/uL (0.0-0.3); EOSINOPHILS % (AUTO) 3 % (0-10); HEMATOCRIT 27 % (40-54); HEMOGLOBIN 8.8 g/dL (13.3-17.7); LYMPHOCYTES # (AUTO) 0.6 10^3/uL (1.0-4.0); LYMPHOCYTES % (AUTO) 9 % (12-44); MEAN CORPUSCULAR HEMOGLOBIN 30 pg (25-34); MEAN CORPUSCULAR HGB CONC 32 g/dL (32-36); MEAN CORPUSCULAR VOLUME 92 fL (80-99); MEAN PLATELET VOLUME 10.7 fL (9.0-12.2); MONOCYTES # (AUTO) 0.8 10^3/uL (0.0-1.0); MONOCYTES % (AUTO) 11 % (0-12); NEUTROPHILS # (AUTO) 5.6 10^3/uL (1.8-7.8); NEUTROPHILS % (AUTO) 77 % (42-75); PLATELET COUNT 195 10^3/uL (130-400); WHITE BLOOD COUNT 7.3 10^3/uL (4.3-11.0)
[2022-08-06 05:53] LABS: ALBUMIN 2.3 GM/DL (3.2-4.5); BILIRUBIN,TOTAL 0.5 MG/DL (0.1-1.0); CALCIUM 7.9 MG/DL (8.5-10.1); CREATININE SERUM 0.79 MG/DL (0.60-1.30); MAGNESIUM 1.7 MG/DL (1.6-2.4); PHOSPHORUS 3.2 MG/DL (2.3-4.7); POTASSIUM 4.2 MMOL/L (3.6-5.0); TOTAL PROTEIN 5.4 GM/DL (6.4-8.2)
--- NOTE | 2022-08-06 06:41 | Progress Note ---
Subjective Date Seen by a Provider: Aug 06, 2022 Time Seen by a Provider: 11:00 Subjective/Events-last exam Much improved status NG tube DC Supportive care will continue Colostomy output good Tolerating a regular diet Review of Systems General: Fatigue, Malaise Objective Exam Last Set of Vital Signs Vital Signs Date Time Temp Pulse Resp B/P (MAP) Pulse Ox O2 Delivery O2 Flow Rate FiO2 08/05/22 23:30 36.4 76 18 95/56 (69) 95 Room Air Capillary Refill : I&O Intake and Output 08/06/22 00:00 Intake Total 1510 ml Output Total 2620 ml Balance -1110 ml Intake Oral 1410 ml IV Total 100 ml Output Urine Total 2180 ml Stool Total 300 ml Drainage Total 140 ml General: Alert, Oriented X3, Cooperative, No Acute Distress Lungs: Clear to Auscultation, Normal Air Movement Heart: Regular Rate, Normal S1, Normal S2, No Murmurs Psych/Mental Status: Mental Status NL, Mood NL Results Lab Laboratory Tests 08/05/22 06:55: Glucometer 132H 08/06/22 05:17: White Blood Count 7.3, Red Blood Count 2.96L, Hemoglobin 8.8L, Hematocrit 27L, Mean Corpuscular Volume 92, Mean Corpuscular Hemoglobin 30, Mean Corpuscular Hemoglobin Concent 32, Red Cell Distribution Width 16.7H, Platelet Count 195, Mean Platelet Volume 10.7, Immature Granulocyte % (Auto) 1, Neutrophils (%) (Auto) 77H, Lymphocytes (%) (Auto) 9L, Monocytes (%) (Auto) 11, Eosinophils (%) (Auto) 3, Basophils (%) (Auto) 1, Neutrophils # (Auto) 5.6, Lymphocytes # (Auto) 0.6L, Monocytes # (Auto) 0.8, Eosinophils # (Auto) 0.2, Basophils # (Auto) 0.0, Immature Granulocyte # (Auto) 0.1, Sodium Level 136, Potassium Level 4.2, Chloride Level 108H, Carbon Dioxide Level 22, Anion Gap 6, Blood Urea Nitrogen 16, Creatinine 0.79, Estimat Glomerular Filtration Rate 93, BUN/Creatinine Ratio 20, Glucose Level 92, Calcium Level 7.9L, Corrected Calcium 9.3, Phosphorus Level 3.2, Magnesium Level 1.7, Total Bilirubin 0.5, Aspartate Amino Transf (AST/SGOT) 27, Alanine Aminotransferase (ALT/SGPT) 22, Alkaline Phosphatase 127, Total Protein 5.4L, Albumin 2.3L Microbiology 07/25/22 MRSA Screen - Final, Complete MRSA not isolated Assessment/Plan Assessment/Plan Assess & Plan/Chief Complaint Assessment: Status post partial colon resection for colon cancer and placement of colostomy now postop ileus with nausea and vomiting requiring NG tube now DC'd and advancing diet 08/05/2022 Abdominal pain - improved Debility Hypokalemia resolved Plan: Supportive care Pain control Therapy Antiemetics PT DC TPN KHADIJAH BOSS DO Aug 06, 2022 06:41
[2022-08-06 07:57] VITALS: BP 103/58
[2022-08-06] MEDS: FAMOTIDINE 20MG/2ML IV (PEPCID) IVP SCH ×2 (08:20→19:55)
--- NOTE | 2022-08-06 10:55 | Progress Note - Surgery ---
Subjective Time Seen by a Provider: 10:26 Subjective/Events-last exam Pt seen and examined, no complaints and denies abdominal pain. Tolerating current diet. States "my stomach is expanding and now I am able to eat more." Review of Systems General: No Chills, No Night Sweats Pulmonary: No Dyspnea, No Cough Cardiovascular: No: Chest Pain, Palpitations Gastrointestinal: No: Nausea, Vomiting, Abdominal Pain Objective Exam Vital Signs Date Time Temp Pulse Resp B/P (MAP) Pulse Ox O2 Delivery O2 Flow Rate FiO2 08/06/22 08:00 Room Air 08/06/22 07:57 36.7 73 16 103/58 (73) 98 Room Air 08/05/22 23:30 36.4 76 18 95/56 (69) 95 Room Air 08/05/22 21:39 37.0 80 20 126/61 (82) 97 Room Air 08/05/22 20:00 Room Air 08/05/22 15:47 37.0 79 18 118/59 (78) 98 Room Air 08/05/22 11:47 36.4 71 20 115/58 (77) 98 Room Air I & O 08/06/22 07:00 Intake Total 1410 ml Output Total 2840 ml Balance -1430 ml Capillary Refill : General Appearance: No Apparent Distress, WD/WN HEENT: PERRL/EOMI Respiratory: Lungs Clear, No Accessory Muscle Use, No Respiratory Distress Cardiovascular: Regular Rate, Rhythm, No Murmur Peripheral Pulses: 2+ Radial Pulses (R), 2+ Radial Pulses (L) Gastrointestinal: non tender, soft, other (Colostomy functioning with liquid stool in bag. Abdominal incisions C/D/I) Neurologic/Psychiatric: Alert, Oriented x3 Results Lab Laboratory Tests 08/06/22 05:17: White Blood Count 7.3, Red Blood Count 2.96L, Hemoglobin 8.8L, Hematocrit 27L, Mean Corpuscular Volume 92, Mean Corpuscular Hemoglobin 30, Mean Corpuscular Hemoglobin Concent 32, Red Cell Distribution Width 16.7H, Platelet Count 195, Mean Platelet Volume 10.7, Immature Granulocyte % (Auto) 1, Neutrophils (%) (Auto) 77H, Lymphocytes (%) (Auto) 9L, Monocytes (%) (Auto) 11, Eosinophils (%) (Auto) 3, Basophils (%) (Auto) 1, Neutrophils # (Auto) 5.6, Lymphocytes # (Auto) 0.6L, Monocytes # (Auto) 0.8, Eosinophils # (Auto) 0.2, Basophils # (Auto) 0.0, Immature Granulocyte # (Auto) 0.1, Sodium Level 136, Potassium Level 4.2, Chloride Level 108H, Carbon Dioxide Level 22, Anion Gap 6, Blood Urea Nitrogen 16, Creatinine 0.79, Estimat Glomerular Filtration Rate 93, BUN/Creatinine Ratio 20, Glucose Level 92, Calcium Level 7.9L, Corrected Calcium 9.3, Phosphorus Level 3.2, Magnesium Level 1.7, Total Bilirubin 0.5, Aspartate Amino Transf (AST/SGOT) 27, Alanine Aminotransferase (ALT/SGPT) 22, Alkaline Phosphatase 127, Total Protein 5.4L, Albumin 2.3L Microbiology 07/25/22 MRSA Screen - Final, Complete MRSA not isolated Assessment/Plan Assessment/Plan Assessment/Plan S/P LAR Advance diet as tolerated, encourage ambulation and IS use. Hopefully home soon. PHILIPP HESS DO Aug 06, 2022 10:55
[2022-08-06 16:00] VITALS: BP 136/78
[2022-08-06] MEDS: ENOXAPARIN 40 MG/0.4 ML (LOVENOX) SYR SC SCH (19:55)
[2022-08-06 23:52] VITALS: BP 118/67
[2022-08-07 04:58] LABS: BASOPHILS # (AUTO) 0.1 10^3/uL (0.0-0.1); BASOPHILS % (AUTO) 1 % (0-10); EOSINOPHILS # (AUTO) 0.2 10^3/uL (0.0-0.3); EOSINOPHILS % (AUTO) 3 % (0-10); HEMATOCRIT 27 % (40-54); HEMOGLOBIN 8.8 g/dL (13.3-17.7); LYMPHOCYTES # (AUTO) 0.5 10^3/uL (1.0-4.0); LYMPHOCYTES % (AUTO) 7 % (12-44); MEAN CORPUSCULAR HEMOGLOBIN 30 pg (25-34); MEAN CORPUSCULAR HGB CONC 33 g/dL (32-36); MEAN CORPUSCULAR VOLUME 92 fL (80-99); MEAN PLATELET VOLUME 10.4 fL (9.0-12.2); MONOCYTES # (AUTO) 0.8 10^3/uL (0.0-1.0); MONOCYTES % (AUTO) 11 % (0-12); NEUTROPHILS # (AUTO) 5.7 10^3/uL (1.8-7.8); NEUTROPHILS % (AUTO) 78 % (42-75); PLATELET COUNT 220 10^3/uL (130-400); WHITE BLOOD COUNT 7.3 10^3/uL (4.3-11.0)
[2022-08-07 05:22] LABS: ALBUMIN 2.3 GM/DL (3.2-4.5); BILIRUBIN,TOTAL 0.4 MG/DL (0.1-1.0); CREATININE SERUM 0.79 MG/DL (0.60-1.30); MAGNESIUM 1.7 MG/DL (1.6-2.4); PHOSPHORUS 3.2 MG/DL (2.3-4.7); POTASSIUM 3.9 MMOL/L (3.6-5.0); TOTAL PROTEIN 5.5 GM/DL (6.4-8.2)
--- NOTE | 2022-08-07 06:59 | Progress Note - Surgery ---
ADRIELJULISA 08/07/22 0658: Subjective Date Seen by a Provider: Aug 07, 2022 Time Seen by a Provider: 06:52 Subjective/Events-last exam Pt is doing well and tolerating quinonez. Pt reports not being in any pain. Pt reports no SOB and cough is better. Pt reports using ICS 6 times a day. Patient is ambulating well about 2-4 times a day, and uses his urinal. Pt's diet has advanced to regular diet. ALEXX drain 35 in last 12 hrs and 400mL out colostomy. Review of Systems General: No Chills, No Night Sweats, No Fatigue HEENT: No Head Aches, No Visual Changes, No Eye Pain Pulmonary: No Dyspnea; Cough Cardiovascular: No: Chest Pain, Palpitations, Edema Gastrointestinal: Abdominal Pain; No: Nausea, Vomiting Genitourinary: No Dysuria, No Frequency Neurological: No: Weakness, Numbness Objective Exam Vital Signs Date Time Temp Pulse Resp B/P (MAP) Pulse Ox O2 Delivery O2 Flow Rate FiO2 08/06/22 23:52 36.3 76 18 118/67 (84) 98 Room Air 08/06/22 20:00 Room Air 08/06/22 16:00 36.5 73 21 136/78 (97) 99 Room Air 08/06/22 08:00 Room Air 08/06/22 07:57 36.7 73 16 103/58 (73) 98 Room Air I & O 08/07/22 07:00 Intake Total 1680 ml Output Total 3465 ml Balance -1785 ml Capillary Refill : General Appearance: No Apparent Distress, WD/WN HEENT: PERRL/EOMI Respiratory: Lungs Clear, No Accessory Muscle Use, No Respiratory Distress Cardiovascular: Regular Rate, Rhythm, No Murmur Peripheral Pulses: 2+ Radial Pulses (R), 2+ Radial Pulses (L) Gastrointestinal: non tender, soft, other (Colostomy functioning with liquid stool in bag. Abdominal incisions C/D/I) Neurologic/Psychiatric: Alert, Oriented x3 Results Lab Laboratory Tests 08/07/22 04:45: White Blood Count 7.3, Red Blood Count 2.96L, Hemoglobin 8.8L, Hematocrit 27L, Mean Corpuscular Volume 92, Mean Corpuscular Hemoglobin 30, Mean Corpuscular Hemoglobin Concent 33, Red Cell Distribution Width 16.4H, Platelet Count 220, Mean Platelet Volume 10.4, Immature Granulocyte % (Auto) 1, Neutrophils (%) (Auto) 78H, Lymphocytes (%) (Auto) 7L, Monocytes (%) (Auto) 11, Eosinophils (%) (Auto) 3, Basophils (%) (Auto) 1, Neutrophils # (Auto) 5.7, Lymphocytes # (Auto) 0.5L, Monocytes # (Auto) 0.8, Eosinophils # (Auto) 0.2, Basophils # (Auto) 0.1, Immature Granulocyte # (Auto) 0.1, Sodium Level 136, Potassium Level 3.9, Chloride Level 107, Carbon Dioxide Level 22, Anion Gap 7, Blood Urea Nitrogen 13, Creatinine 0.79, Estimat Glomerular Filtration Rate 93, BUN/Creatinine Ratio 16, Glucose Level 98, Calcium Level 8.0L, Corrected Calcium 9.4, Phosphorus Level 3.2, Magnesium Level 1.7, Total Bilirubin 0.4, Aspartate Amino Transf (AST/SGOT) 24, Alanine Aminotransferase (ALT/SGPT) 21, Alkaline Phosphatase 153H , Total Protein 5.5L, Albumin 2.3L, Triglycerides Level 79 Microbiology 07/25/22 MRSA Screen - Final, Complete MRSA not isolated Assessment/Plan Assessment/Plan Assessment/Plan S/P LAR Pt is currently on Regular Diet w/ output of Colostomy Monitor Hemoglobin Monitor Alk Phos which is currently 153 and calcium 8L Consider US Continue to Ambulate WILFREDO REN DO 08/07/22 1515: Subjective Subjective/Events-last exam Pain controlled. Tolerating diet. Colostomy functioning. Urinating without difficulty. Denies n/v fever sweats chills shortness of breath or chest pain. Wanting to go home. Objective Exam General Appearance: No Apparent Distress, WD/WN, Chronically ill HEENT: PERRL/EOMI, Normal ENT Inspection Neck: Normal Inspection, Non Tender Respiratory: Chest Non Tender, No Accessory Muscle Use, No Respiratory Distress Cardiovascular: Regular Rate, Rhythm, No JVD Gastrointestinal: non tender, soft, other (Colostomy functioning stool in bag. Abdominal incisions C/D/I alexx drain serous) Extremity: Normal Inspection, Non Tender Neurologic/Psychiatric: Alert, Oriented x3 Skin: Normal Color, Warm/Dry Lymphatic: No Adenopathy Assessment/Plan Assessment/Plan Assessment/Plan s/p lar c end colostomy doing well alexx drain when less than 30 mL in 24 hours can be removed. Will dc home with home health. Supervisory-Addendum Brief Verification & Attestation Participated in pt care: history, MDM, physical Personally performed: exam, history, MDM, supervision of care Care discussed with: Medical Student Procedures: n/a Results interpretation: Verified all documentation Verification and Attestation of Medical Student E/M Service A medical student performed and documented this service in my presence. I reviewed and verified all information documented by the medical student and made modifications to such information, when appropriate. I personally performed the physical exam and medical decision making. Wilfredo Ren, Aug 07, 2022,15:15 JULISA MOREL Aug 07, 2022 06:58 WILFREDO REN DO Aug 07, 2022 15:15
[2022-08-07 07:55] VITALS: BP 135/73
[2022-08-07] MEDS: FAMOTIDINE 20MG/2ML IV (PEPCID) IVP SCH (09:10)
[2022-08-07] MEDS: 1/2 NS IV SOLUTION 1,000 ML IV SCH (09:10)
--- NOTE | 2022-08-07 10:20 | Progress Note ---
[facility]20[facility] Subjective Date Seen by a Provider: Aug 07, 2022 Time Seen by a Provider: 10:00 Subjective/Events-last exam Detlef is a 72-year-old male who is status post partial colon resection due to colon cancer status post chemotherapy and radiation. His stay was complicated by postop ileus. He began to experience nausea and vomitting 07/28 and NG tube was placed with large output. He also experienced oliguria despite boluses, ware remained in place for accurate recording of input and output. He had liquid output from colostomy and remained admitted until a more substantial output was achieved. His hypokalemia was controlled with replacement. As he was NPO for quite some time, PICC line was placed and TPN was started on 07/31. Patient had a coughing fit overnight 08/01 and had some bleeding from incision afterwards and some blood coming from alexx drain. This resolved by morning. Postop KUB 08/03 with drain within the pelvis, arpita along the lower abdomen, no other radiopaque foreign bodies. NGT was removed and diet was advanced 08/05. Patient lives alone. He was evaluated for inpatient rehab today but does not qualify at this time. convention services manager is working to acquire home health care upon his discharge. Today pt reports doing very well. He is passing flatus. Colostomy has stool output today 400cc, ALEXX drain with serosanguinous fluid 35 cc. He is doing well on a regular diet. Denies CP, SOB, nausea, vomiting, pain. He is ambulating well and gets up a couple times per day to walk the halls with help. He is urinating in bedside urinal. Using IS. He reports living by himself. Objective Exam Last Set of Vital Signs Vital Signs Date Time Temp Pulse Resp B/P (MAP) Pulse Ox O2 Delivery O2 Flow Rate FiO2 08/07/22 09:55 Room Air 08/07/22 07:55 36.7 73 18 135/73 (93) 97 Capillary Refill : I&O Intake and Output 08/06/22 23:59 Intake Total 1730 ml Output Total 2760 ml Balance -1030 ml Intake Oral 1730 ml Output Urine Total 2650 ml Drainage Total 110 ml General: Alert, Oriented X3, Cooperative, No Acute Distress HEENT: Atraumatic, PERRLA, EOMI, Mucous Memb Moist/[place] Lungs: Clear to Auscultation, Normal Air Movement Heart: Regular Rate, Normal S1, Normal S2 Abdomen: Soft, Other (incisions clean/dry/intact with slight tenderness; colostomy with stool output; ALEXX drain with serosang) Extremities: Normal Pulses Psych/Mental Status: Mental Status NL, Mood NL Results Lab Laboratory Tests 08/07/22 04:45: White Blood Count 7.3, Red Blood Count 2.96L, Hemoglobin 8.8L, Hematocrit 27L, Mean Corpuscular Volume 92, Mean Corpuscular Hemoglobin 30, Mean Corpuscular Hemoglobin Concent 33, Red Cell Distribution Width 16.4H, Platelet Count 220, Me an Platelet Volume 10.4, Immature Granulocyte % (Auto) 1, Neutrophils (%) (Auto) 78H, Lymphocytes (%) (Auto) 7L, Monocytes (%) (Auto) 11, Eosinophils (%) (Auto) 3, Basophils (%) (Auto) 1, Neutrophils # (Auto) 5.7, Lymphocytes # (Auto) 0.5L, Monocytes # (Auto) 0.8, Eosinophils # (Auto) 0.2, Basophils # (Auto) 0.1, Immatu re Granulocyte # (Auto) 0.1, Sodium Level 136, Potassium Level 3.9, Chloride Level 107, Carbon Dioxide Level 22, Anion Gap 7, Blood Urea Nitrogen 13, Creatinine 0.79, Estimat Glomerular Filtration Rate 93, BUN/Creatinine Ratio 16, Glucose Level 98, Calcium Level 8.0L, Corrected Calcium 9.4, Phosphorus Level 3.2, Magnesium Level 1.7, Total Bilirubin 0.4, Aspartate Amino Transf (AST/SGOT) 24, Alanine Aminotransferase (ALT/SGPT) 21, Alkaline Phosphatase 153H, Total Protein 5.5L, Albumin 2.3L, Triglycerides Level 79 Microbiology 07/25/22 MRSA Screen - Final, Complete MRSA not isolated Assessment/Plan Assessment/Plan Assess & Plan/Chief Complaint Assessment: Status post partial colon resection for colon cancer and placement of colostomy now postop ileus with nausea and vomiting requiring NG tube now DC'd and advanced diet 08/05/2022 Abdominal pain - improved Debility Hypokalemia- resolved Regular diet Plan: Supportive care Pain control Therapy Antiemetics PT Given good colostomy output, likely d/c with [facility] BESSY BOSS DO 08/07/222045: Supervisory-Addendum Brief Verification & Attestation Participated in pt care: history, MDM, physical Personally performed: exam, history, MDM, supervision of care Care discussed with: Medical Student Procedures: n/a Results interpretation: Verified all documentation Verification and Attestation of Medical Student E/M Service A medical student performed and documented this service in my presence. I revie wed and verified all information documented by the medical student and made modifications to such information, when appropriate. I personally performed the physical exam and medical decision making. Bessy Boss, Aug 07, 2022,20:46 WALLACE RENEE Aug 07, 2022 10:20 BESSY BOSS DO Aug 07, 2022 20:46
--- NOTE | 2022-08-07 10:22 | Physical Therapy Evaluation ---
PT Evaluation-General Medical Diagnosis Admission Date Jul 25, 2022 at 09:51 Medical Diagnosis: rectal mass Onset Date: Jul 25, 2022 Therapy Diagnosis Therapy Diagnosis: debility Precautions Precautions/Isolations: Standard Precautions Weight Bear Status Right Lower Extremity: Right Weight Bearing/Tolerated Left Lower Extremity: Left Weight Bearing/Tolerated Referral Physician: Nighat Reason for Referral: Evaluation/Treatment Medical History Current History s/p rectal mass resection Reviewed History: Yes Social History Home: Single Level Current Living Status: Alone Entry Into Home: Stairs With Railing PT Steps Into Home: 2 Prior Prior Level of Function SCALE: Activities may be completed with or without assistive devices. 2-Ogytacshwk-eyxoezb completes the activity by him/herself with no assistance f rom a helper. 5-Set-up or Clean-up Assistance-helper sets up or cleans up; patient completes activity. Edmond assists only prior to or following the activity. 4-Supervision or Touching Assistance-helper provides verbal cues and/or touching/steadying and/or contact guard assistance as patient completes activity. Assistance may be provided throughout the activity or intermittently. 3-Partial/Moderate Assistance-helper does LESS THAN HALF the effort. Edmond lifts, holds or supports trunk or limbs, but provides less than half the effort. 2-Substantial/Maximal Assistance-helper does MORE THAN HALF the effort. Edmond lifts or holds trunk or limbs and provides more than half the effort. 2-Edoagssoi-fodjzc does ALL the effort. Patient does none of the effort to complete the activity. Or, the assistance of 2 or more helpers is required for the patient to complete the activity. If activity was not attempted, code reason: 7-Patient Refused. 9-Not Applicable-not attempted and the patient did not perform the activity before the current illness, exacerbation or injury. 10-Not Attempted due to Environmental Limitations-(lack of equipment, weather restraints, etc.). 88-Not Attempted due to Medical Conditions or Safety Concerns. Bed Mobility: 6 Transfers (B,C,W/C): 6 Gait: 6 Stairs: 6 Wheelchair Mobility: 9 Indoor Mobility (Ambulation): Independent Stairs: Independent Prior Devices Use: None PT Evaluation-Current Subjective Patient agrees to PT. Objective Patient Orientation: Normal For Age Attachments: Drains ROM/Strength ROM Lower Extremities bilateral LE WFL Strength Lower Extremities 4/5 grossly bilateral LE all planes Integumentary/Posture Bowel Incontinence: No Bladder Incontinence: No Posture WFL Neuromuscular (Tone, Coordination, Reflexes) grossly intact Sensory Vision: Wears Glasses Hearing: Hearing Aid/Aides Transfers Roll Left to Right (QC): 6 Sit to Lying (QC): 6 Lying to Sitting/Side of Bed(Q: 6 Sit to Stand (QC): 6 Chair/Xeu-wo-Wahjh Xfer(QC): 6 Gait Mode of Locomotion: Walk Anticipated Mode of Locomotion: Walk Walk 10 feet (QC): 6 Walk 50 ft with 2 Turns(QC): 6 Walk 150 ft (QC): 6 Walking 10ft/uneven surface-QC: 6 Distance: 800' Gait Assistive Device: None Comments/Gait Description safe and functional with no deviation Stairs #of Steps: 12 1 Step (curb) (QC): 6 4 Steps (QC): 6 12 Steps (QC): 6 Balance Sitting Static: Normal Sitting Dynamic: Normal Standing Static: Normal Standing Dynamic: Normal Picking up an Object (QC): 6 Assessment/Needs Patient is currently at independent OF with all gross motor skills and does not require skilled PT intervention. Patient had been seen by PT prior to this evaluation and was dismissed to nursing to continue to ambulate PRN in hallway. Patient is currently ambulating without AD and is up independently in room. Rehab Potential: Fair PT Plan Treatment/Plan Treatment Plan: Discontinue PT, goals met Treatment Duration: Aug 07, 2022 Frequency: 1 time per week Estimated Hrs Per Day: .25 hour per day Patient and/or Family Agrees t: Yes Time Time In: 1000 Time Out: 1013 DATE: Aug 07, 2022 Total Billed Treatment Time: 13 Total Billed Treatment [address] [facility] 13 min SMITA LERMA PT Aug 07, 2022 10:22
--- NOTE | 2022-08-07 11:43 | Occupational Therapy Eval ---
OT Evaluation-General/PLF Medical Diagnosis Admission Date Jul 25, 2022 at 09:51 Medical Diagnosis: rectal mass Onset Date: Jul 25, 2022 Therapy Diagnosis Therapy Diagnosis: n/a Precautions Precautions/Isolations: Standard Precautions Referral Physician: Nighat Watson Reason: Evaluation/Treatment Medical History Current History s/p rectal mass resection Per patient, he lives alone in a single story home. He was indep with adls and iadls. Does not use any AD at baseline. Reviewed History: Yes Social History Home: Single Level Current Living Status: Alone Entry Into Home: Stairs With Railing Steps Into Home: 2 ADL-Prior Level of Function SCALE: Activities may be completed with or without assistive devices. 8-Uzjqvdjkii-hkntgby completes the activity by him/herself with no assistance from a helper. 5-Set-up or Clean-up Assistance-helper sets up or cleans up; patient completes activity. Cecil assists only prior to or following the activity. 4-Supervision or Touching Assistance-helper provides verbal cues and/or touching/steadying and/or contact guard assistance as patient completes activity. Assistance may be provided throughout the activity or intermittently. 3-Partial/Moderate Assistance-helper does LESS THAN HALF the effort. Cecil lifts, holds or supports trunk or limbs, but provides less than half the effort. 2-Substantial/Maximal Assistance-helper does MORE THAN HALF the effort. Cecil lifts or holds trunk or limbs and provides more than half the effort. 5-Pqaphealk-ljpqbw does ALL the effort. Patient does none of the effort to complete the activity. Or, the assistance of 2 or more helpers is required for the patient to complete the activity. If activity was not attempted, code reason: 7-Patient Refused. 9-Not Applicable-not attempted and the patient did not perform the activity before the current illness, exacerbation or injury. 10-Not Attempted due to Environmental Limitations-(lack of equipment, weather restraints, etc.). 88-Not Attempted due to Medical Conditions or Safety Concerns. Self Care: Independent Functional Cognition: Independent DME/Equipment: Grab Bars, Tub/Shower OT Current Status Subjective Pt denies pain, reports feeling good. He does report that he will need further education on management of colostomy bag prior to discharge. Appearance Pt returned to supine in bed, all needs within reach, RN notified. Mental Status/Objective Patient Orientation: Person, Place, Situation Attachments: Colostomy/Ileostomy, Drains Current Glasses/Contacts: Yes Hand Dominance: Right Upper Extremity ROM WNL Upper Extremity Strength WFL ADL-Treatment Lower Body Dressing (QC): 6 On/Off Footwear (QC): 6 Pt is very [place], requires repetition. Supine<>sit: Indep. Good sitting balance at edge of bed. Pt able to independently don socks and brief over feet. He stood independently to manage brief over hips, no unsteadiness exhibited. Pt declines need to use toilet, but was able to ambulate into the bathroom and demonstrate transfer without difficulty. He does report that he will need further education on management of colostomy prior to discharge. RN notified. Pt denies concerns with self cares at this time, OT will discharge. Education OT Patient Education: Purpose of tx/functional activities Teaching Recipient: Patient Teaching Methods: Discussion Response to Teaching: Verbalize Understanding, Return Demonstration OT Shelter Goals Shelter Goals 1=Demonstrate adherence to instructed precautions during ADL tasks. 2=Patient will verbalize/demonstrate understanding of assistive devices/modifications for ADL. 3=Patient will improve strength/tolerance for activity to enable patient to perform ADL's. OT Education/Plan Problem List/Assessment Assessment: No Skilled OT Needs ID'd Discharge Recommendations Plan/Recommendations: Discontinue OT Therapy Discharge Recommendati: Home & Family Treatment Plan/Plan of Care Treatment,Training & Education: Yes Patient would benefit from OT for education, treatment and training to promote independence in ADL's, mobility, safety and/or upper extremity function for ADL's. Plan of Care: ADL Retraining Treatment Duration: Aug 07, 2022 Frequency: 1 time per week Estimated Hrs Per Day: .25 hour per day Time Start Time: 11:28 Stop Time: 11:36 DATE: Aug 07, 2022 Total Time Billed (hr/min): 8 Billed Treatment Time 1 visit [place] OT Aug 07, 2022 11:43
[2022-08-07] MEDS ORDERED: ACHD5005 PO (15:07)
[2022-08-07 16:07] VITALS: BP 122/71
[2022-08-07 16:55] VITALS: BP 122/71
--- NOTE | 2022-08-08 11:15 | Physician Query Clarification ---
PQ-Link Path Diagnosis Admission/Discharge Admission Date: Jul 25, 2022 at 09:51 Discharge Date: Aug 07, 2022 at 16:55 Dr. Ren, The medical record reflects the following: colorectal CA The pathology report findings document: invasive moderately differentiated colorectal CA w/1 of 12 nodes positive for metastatic CA Question: Do you agree with the pathology report findings of lymph node metast asis? Please document a response in Progress Notes or Discharge Summary. 1. Agree with pathological diagnosis of lymph node metastasis. 2. No - Do not agree with pathology findings of lymph node metastasis. 3. Other, with explanation of the clinical findings. 4. Clinically undetermined, no explanation for the clinical findings. Is is appropriate for a provider to add additional documentation (addenda) to the record to explain the evaluation & care up to 30 days post-discharge. See [facility] and Patient Record Guidelines below. The [facility] Chapter Record of Care, Standard; [id number].01.03.01EP 1: "The hospital has a written policy that required timely entry of information into the medical record." According to [facility] Patient Record Guidelines, ARTICLE XXI. CORRECTIONS AND ADDENDA, Modifications (addenda amendments, corrections and retractions) should be made timely and no later than regulatory requirements for record completion (i.e. 30 days post discharge). Official coding guidelines require coders to query the physician for agreement with pathology findings that occur during the encounter. Coders are not allowed to pull information directly from the path reports. In responding to this query, please exercise your independent professional judgment. The purpose of this communication is to more accurately reflect the complexity of your patients condition. The fact that a question is asked does not imply that any particular answer is desired or expected. Thank you for your timely response to this clarification. Requestors name: Wil THIS PHYSICIAN QUERY FORM IS A PERMANENT PART OF THE MEDICAL RECORD WIL EPSTEIN Aug 08, 2022 11:15
== END 2022-08-07 16:55 | disposition home health service (06) | DRG 330 ==
LOC: 4TH 09:51 → SURG 09:52 → 4TH 17:55
PROVIDERS: ADMIT Surgery; ATTEND Surgery
PROC: 0D1N0Z4 Bypass Sigmoid Colon to Cutaneous, Open Approach (ICD-10-PCS; 2022-07-25)
PROC: 0DBN0ZZ Excision of Sigmoid Colon, Open Approach (ICD-10-PCS; 2022-07-25)
PROC: 0DBP0ZZ Excision of Rectum, Open Approach (ICD-10-PCS; principal; 2022-07-25 11:51)
DX: C19 Malignant neoplasm of rectosigmoid junction (principal); C77.2 Secondary and unspecified malignant neoplasm of intra-abdominal lymph nodes; K56.7 Ileus, unspecified; E87.6 Hypokalemia; R34 Anuria and oliguria; Z87.891 Personal history of nicotine dependence; H91.90 Unspecified hearing loss, unspecified ear
CPT/HCPCS: 36415; 36569; 74018; 76937; 80053; 82947; 83735; 84100; 84134; 84478; 85025; 85027; 87081; 94760

== ENCOUNTER → 2022-09-11 | Outpatient (RCR) | payer MEDICARE, OTHER ==
[~2022-09-11] VITALS: Ht 175.3 cm; Wt 85.3 kg
[~2022-09-11] MED LIST changes: +D5W 500 ML IV SOLUTION 500 ML IV SCH; +D5W IV SCH; +HEParin (CENTRAL IV FLUSH) 500 UNIT/5 ML SYR IV PRN; +HYDR-3817 PO; +LEUCOVORIN CALCIUM 500 MG, LEUCOVORIN CALCIUM 200 MG, LEUCOVORIN CALCIUM 100 MG in D5W ... IV SCH; +OXALIPLATIN IV SCH; +PALONOSETRON HCL 0.25 MG, dexAMETHasone INJECTION 20 MG in NS (IVPB) 50 ML IV SCH; +fluorouraciL 4,800 MG in NS (IVPB) 51.2 ML IV SCH
== END | disposition home or self-care (01) ==
LOC: ONC 08-29 13:01
PROVIDERS: ATTEND Internal Medicine Hematology & Oncology
DX: C20 Malignant neoplasm of rectum (principal)
CPT/HCPCS: 99213

== ENCOUNTER 2022-09-12 13:02 | Outpatient (CLI) | payer MEDICARE, OTHER ==
[~2022-09-12] VITALS: Ht 175.3 cm; Wt 85.5 kg
[~2022-09-12 13:02] MED LIST changes: -D5W 500 ML IV SOLUTION 500 ML IV SCH; -D5W IV SCH; -HEParin (CENTRAL IV FLUSH) 500 UNIT/5 ML SYR IV PRN; -HYDR-3817 PO; -LEUCOVORIN CALCIUM 500 MG, LEUCOVORIN CALCIUM 200 MG, LEUCOVORIN CALCIUM 100 MG in D5W ... IV SCH; -OXALIPLATIN IV SCH; -PALONOSETRON HCL 0.25 MG, dexAMETHasone INJECTION 20 MG in NS (IVPB) 50 ML IV SCH; -fluorouraciL 4,800 MG in NS (IVPB) 51.2 ML IV SCH
[2022-09-13] MEDS ORDERED: HYDR-3817 PO (16:45)
== END 2022-09-12 16:44 | disposition home or self-care (01) ==
LOC: PREOP 13:02
PROVIDERS: ATTEND Surgery
DX: Z01.818 Encounter for other preprocedural examination (principal)

== ENCOUNTER 2022-09-13 13:54 | Day surgery (SDC) | payer MEDICARE, OTHER ==
[~2022-09-13] VITALS: Ht 170.3 cm; Wt 85.5 kg
[2022-09-13] VITALS (8 sets, daily range): BP systolic 126–138; BP diastolic 62–73
[2022-09-13] MEDS ORDERED: ceFAZolin INJECTION 2,000 MG in NS (IVPB) 50 ML IV ONE (14:00)
[2022-09-13] MEDS ORDERED: LACTATED RINGERS 1,000 ML IV PRN (14:00)
--- NOTE | 2022-09-13 15:02 | Progress Note-Pre Operative ---
Pre-Operative Progress Note Date of Available H&P: Sep 13, 2022 Date H&P Reviewed: Sep 13, 2022 Time H&P Reviewed: 14:30 History & Physical: No changes noted Pre-Operative Diagnosis: rectal cancer DAYAMI WRAY MD Sep 13, 2022 15:01
--- NOTE | 2022-09-13 15:03 | Discharge Inst-Surgical ---
D/C Lap Instructions-KIDO New, Converted, or Re-Newed RX: RX on Chart Follow Up PRN May access and use groshong port at any time. Activity as tolerated Regular Diet Symptoms to Report: Fever over 101 degree F, Nausea/Vomiting Infection Signs and Symptoms to report: Increased redness, Foul odor of wound, Increased drainage Bathing instructions: May shower Operative Area Clean/Dry; Keep incision clean/dry If any problems/questions: Contact your physician or go to Emergency Room DAYAMI WRAY MD Sep 13, 2022 15:03
[2022-09-13] MEDS ORDERED: morphine INJ 10 MG/ML 1ML (SYR OR VIAL) IVP PRN ×2 (15:15)
[2022-09-13] MEDS ORDERED: ACETAMINOPHEN 325 MG TABLET PO PRN (15:15)
[2022-09-13] MEDS ORDERED: oxyCODONE/APAP 5/325MG (PERCOCET 5) TABLET PO PRN (15:15)
[2022-09-13] MEDS ORDERED: ONDANSETRON 4 MG/2 ML (SDV) Z0FRAN IVP PRN (15:15)
[2022-09-13] MEDS ORDERED: HYDROcodone/APAP 5 MG/325 MG (LORTAB) TAB PO ONE (15:15)
[2022-09-13] MEDS ORDERED: BUP/EPI 0.5% 1:200,000 (SENSORCAINE) 30 ML VIAL ONE (16:25)
[2022-09-13] MEDS ORDERED: 0.9% SODIUM CHLORIDE PF INJ 20 ML VIAL ONE (16:25)
[2022-09-13] MEDS ORDERED: HEParin (CENTRAL IV FLUSH) 500 UNIT/5 ML SYR ONE (16:25)
[2022-09-13] MEDS ORDERED: fentaNYL INJ 100 MCG/2 ML AMP ONE (16:40)
[2022-09-13] MEDS ORDERED: PROPOFOL INJECTION 50 ML IV ONE (16:40)
[2022-09-13] MEDS ORDERED: HYDR-3817 PO (16:45)
--- NOTE | 2022-09-13 17:24 | Progress Note-Post Operative ---
Post-Operative Progess Note Surgeon (s)/Apartment Coordinator (s) Surgeon DAYAMI WRAY MD Apartment Coordinator: maya leger LEAD FORMER Pre-Operative Diagnosis rectal cancer Post-Operative Diagnosis same Procedure & Operative Findings Date of Procedure 09/13/22 Procedure Performed/Findings placement left sublclavian groshong cath under flouroscopy. Anesthesia Type mac with local Estimated Blood Loss Estimated blood loss (mL): minimal Specimens/Packing Specimens Removed none DAYAMI WRAY MD Sep 13, 2022 17:24
--- NOTE | 2022-09-13 18:01 | Diagnostic Imaging Report ---
INDICATION: Status post Port-A-Cath placement. COMPARISON: None FINDINGS: Single frontal radiographic view of the chest was obtained and demonstrates mild left apical pneumothorax estimated at 20%. Cardiomediastinal structures are midline. There may be trace left basilar effusion as well. There is no large effusion or pneumothorax on the right. Note is made of asymmetric hazy opacity about the left base. Cardiac silhouette and pulmonary vasculature are within normal limits. Left-sided subclavian Port-A-Cath is seen with tip in the SVC. Osseous structures show no acute abnormalities. IMPRESSION: 1. Small left apical pneumothorax. 2. Probable small left basilar effusion. 3. Hazy opacification left base is also noted and is suspicious for infiltrate and/or atelectasis. Followup is advised. Called to Leeanne at 5:59 p.m. by cvb. Dictated by: Dictated on workstation # [id number]
--- NOTE | 2022-09-13 18:11 | Anesthesia-General Post-Op ---
General Patient Condition Mental Status/LOC: Same as Preop Cardiovascular: Satisfactory Nausea/Vomiting: Absent Respiratory: Satisfactory Pain: Controlled Complications: Absent Post Op Complications Complications None Follow Up Care/Instructions Patient Instructions None needed. Anesthesia/Patient Condition Patient Condition Patient is doing well, no complaints, stable vital signs, no apparent adverse anesthesia problems. No complications reported per nursing. ARTURO CANCINO CRNA Sep 13, 2022 18:11
--- NOTE | 2022-09-14 03:21 | OPERATIVE REPORT ---
DATE OF SERVICE: 09/13/2022 ATTENDING PRIMARY CARE PHYSICIAN: Gisell Rogers APRN. PREOPERATIVE DIAGNOSIS: Rectal cancer. POSTOPERATIVE DIAGNOSIS: Rectal cancer. PROCEDURE: Placement of left subclavian Groshong implantable catheter under fluoroscopy. SURGEON: Arturo Baires MD ARMOR OFFICER: Huber Link APRN ANESTHESIA: Monitored anesthesia care with local. ESTIMATED BLOOD LOSS: Minimal. FINDINGS: Catheter tip at superior vena caval -- right atrial junction. DISPOSITION: The patient tolerated the procedure well. INDICATIONS: The patient is a 72-year-old male referred over to us for a Groshong implantable catheter. He underwent a colonoscopy in 01/2022 and was found to have 3 polyps of the transverse colon, a sigmoid polyp, which was a tubular adenoma and a rectal mass consistent with a high-grade dysplasia, worrisome for invasive adenocarcinoma, which was confirmed by flexible sigmoidoscopy and rebiopsy. He then underwent hand-assisted laparoscopy and no colon resection due to the low nature of the lesion and end colostomy on 07/25/2022. Further workup including MRI did show invasion beyond the muscularis propria as well as suspicious mesorectal regional lymph nodes. He has been referred to [facility] and did undergo biopsy of the lymph node, which did come back positive for malignancy. It was recommended that he could proceed with neoadjuvant chemoradiation before proceeding with definitive surgical therapy, which would encompass abdominoperineal resection. DESCRIPTION OF PROCEDURE: The patient was brought to the operating room and laid supine on the table. After adequate IV pain and sedative medications and monitored anesthesia care, the chest and neck were prepped and draped in standard surgical fashion. 1% lidocaine with epinephrine was used to anesthetize the overlying skin in the left subclavian region. The left subclavian vein was then cannulated withdrawing the venous blood. The guidewire was then inserted under fluoroscopy. The cannulated needle removed and a skin incision made using a #15 blade. The dilator and sheath were then placed over the guidewire. The dilator and guidewire were then removed and the catheter placed through the sheath until the catheter tip was at the superior vena cava -- right atrial junction and the sheath was then removed. The inner wire within the catheter was then removed. The catheter cut down to size and the port placed onto the catheter. The chest reservoir was then created by extending the skin incision laterally. A plane was then created between the subcutaneous fat and the anterior pectoralis fascia using blunt dissection as well as electrocautery with visualization of good hemostasis. The port was then placed into the reservoir and sutured to the anterior pectoralis fascia using 3-0 Vicryl interrupted sutures. The subcutaneous tissue was then reapproximated with the same suture in an interrupted manner. The skin was closed using 4-0 Monocryl running subcuticular suture. Wound was then cleaned and covered with Dermabond. The port was accessed with a non coring king needle and venous blood drawn and heparinized saline flushed again without any resistance. The patient tolerated the procedure well. We will get a post-procedure chest x-ray once confirmation of placement. The port may be accessed and used at any time. CC: Dr. Farrar at the [facility] -- requested, unable to deliver. Job ID: [id number] DocumentID: [id number] Dictated Date: 09/13/2022 17:22:47 Strategic Marketing Associate Date: 09/14/2022 03:19:00 Dictated By: ARTURO BAIRES MD
== END 2022-09-13 18:40 | disposition home or self-care (01) ==
LOC: SDC 13:54
PROVIDERS: ATTEND Surgery
DX: C20 Malignant neoplasm of rectum (principal); C77.5 Secondary and unspecified malignant neoplasm of intrapelvic lymph nodes; Z86.010 Personal history of colon polyps
CPT/HCPCS: 71045; 76000; 87081

== ENCOUNTER 2022-10-05 11:36 | Outpatient (RCR) | payer MEDICARE, OTHER ==
[2022-09-17 09:38] LABS: BASOPHILS % (AUTO) 0 % (0-10); EOSINOPHILS # (AUTO) 0.2 10^3/uL (0.0-0.3); EOSINOPHILS % (AUTO) 3 % (0-10); HEMATOCRIT 28 % (40-54); LYMPHOCYTES # (AUTO) 0.4 10^3/uL (1.0-4.0); LYMPHOCYTES % (AUTO) 8 % (12-44); MEAN CORPUSCULAR HEMOGLOBIN 28 pg (25-34); MEAN CORPUSCULAR HGB CONC 32 g/dL (32-36); MEAN CORPUSCULAR VOLUME 87 fL (80-99); MEAN PLATELET VOLUME 9.2 fL (9.0-12.2); MONOCYTES # (AUTO) 0.6 10^3/uL (0.0-1.0); MONOCYTES % (AUTO) 11 % (0-12); NEUTROPHILS # (AUTO) 3.8 10^3/uL (1.8-7.8); NEUTROPHILS % (AUTO) 77 % (42-75); PLATELET COUNT 230 10^3/uL (130-400); WHITE BLOOD COUNT 4.9 10^3/uL (4.3-11.0)
[2022-09-17 09:58] LABS: ALBUMIN 2.6 GM/DL (3.2-4.5); BILIRUBIN,TOTAL 0.4 MG/DL (0.1-1.0); CALCIUM 8.4 MG/DL (8.5-10.1); CREATININE SERUM 0.81 MG/DL (0.60-1.30); POTASSIUM 3.3 MMOL/L (3.6-5.0); TOTAL PROTEIN 6.9 GM/DL (6.4-8.2)
[2022-10-03 09:38] LABS: BASOPHILS % (AUTO) 1 % (0-10); EOSINOPHILS # (AUTO) 0.2 10^3/uL (0.0-0.3); EOSINOPHILS % (AUTO) 10 % (0-10); HEMATOCRIT 32 % (40-54); LYMPHOCYTES # (AUTO) 0.4 10^3/uL (1.0-4.0); LYMPHOCYTES % (AUTO) 15 % (12-44); MEAN CORPUSCULAR HEMOGLOBIN 27 pg (25-34); MEAN CORPUSCULAR HGB CONC 32 g/dL (32-36); MEAN CORPUSCULAR VOLUME 84 fL (80-99); MEAN PLATELET VOLUME 9.1 fL (9.0-12.2); MONOCYTES # (AUTO) 0.4 10^3/uL (0.0-1.0); MONOCYTES % (AUTO) 15 % (0-12); NEUTROPHILS # (AUTO) 1.5 10^3/uL (1.8-7.8); NEUTROPHILS % (AUTO) 59 % (42-75); PLATELET COUNT 221 10^3/uL (130-400); WHITE BLOOD COUNT 2.5 10^3/uL (4.3-11.0)
[2022-10-03 09:59] LABS: BILIRUBIN,TOTAL 0.4 MG/DL (0.1-1.0); CALCIUM 8.7 MG/DL (8.5-10.1); CREATININE SERUM 0.84 MG/DL (0.60-1.30); POTASSIUM 3.6 MMOL/L (3.6-5.0)
[~2022-10-05 11:36] MED LIST changes: +D5W 500 ML IV SOLUTION 500 ML IV SCH; +D5W IV SCH; +HEParin (CENTRAL IV FLUSH) 500 UNIT/5 ML SYR IV PRN; +HYDR-3817 PO; +LEUCOVORIN CALCIUM 500 MG, LEUCOVORIN CALCIUM 200 MG, LEUCOVORIN CALCIUM 100 MG in D5W ... IV SCH; +LEUCOVORIN CALCIUM IV SCH; +NS IV 500 ML 500 ML ONE; +OXALIPLATIN IV SCH; +PALONOSETRON HCL 0.25 MG, dexAMETHasone INJECTION 20 MG in NS (IVPB) 50 ML IV SCH; +fluorouraciL 4,800 MG in NS (IVPB) 51.2 ML IV SCH
== END 2022-10-09 | disposition home or self-care (01) ==
LOC: ONC 11:36
PROVIDERS: ATTEND Internal Medicine Hematology & Oncology
DX: Z51.11 Encounter for antineoplastic chemotherapy (principal); C20 Malignant neoplasm of rectum
CPT/HCPCS: 36591; 80053; 85025; 96375; 96411; 96413; 96415; 96416; 96417

== ENCOUNTER → 2022-10-17 | Outpatient (CLI) | payer MEDICARE, OTHER ==
[~2022-10-17] MED LIST changes: -D5W 500 ML IV SOLUTION 500 ML IV SCH; -D5W IV SCH; -HEParin (CENTRAL IV FLUSH) 500 UNIT/5 ML SYR IV PRN; -LEUCOVORIN CALCIUM 500 MG, LEUCOVORIN CALCIUM 200 MG, LEUCOVORIN CALCIUM 100 MG in D5W ... IV SCH; -LEUCOVORIN CALCIUM IV SCH; -NS IV 500 ML 500 ML ONE; -OXALIPLATIN IV SCH; -PALONOSETRON HCL 0.25 MG, dexAMETHasone INJECTION 20 MG in NS (IVPB) 50 ML IV SCH; -fluorouraciL 4,800 MG in NS (IVPB) 51.2 ML IV SCH
[2022-10-17 11:04] LABS: CHOLESTEROL 128 MG/DL (< 200); HDL CHOLESTEROL 50 MG/DL (40-60); TRIGLYCERIDES 74 MG/DL (<150); VLDL CHOLESTEROL 15 MG/DL (5-40)
== END ==
LOC: LAB 09:46
PROVIDERS: ATTEND Nurse Practitioner
DX: Z01.89 Encounter for other specified special examinations (principal)
CPT/HCPCS: 36415; 80061

== ENCOUNTER → 2022-11-09 | Outpatient (RCR) | payer MEDICARE, OTHER ==
[2022-10-17 10:13] LABS: EOSINOPHILS # (AUTO) 0.1 10^3/uL (0.0-0.3)
[2022-10-17 10:15] LABS: BASOPHILS % (AUTO) 1 % (0-10); EOSINOPHILS % (AUTO) 6 % (0-10); HEMATOCRIT 30 % (40-54); HEMOGLOBIN 9.8 g/dL (13.3-17.7); LYMPHOCYTES # (AUTO) 0.4 10^3/uL (1.0-4.0); LYMPHOCYTES % (AUTO) 28 % (12-44); MEAN CORPUSCULAR HEMOGLOBIN 27 pg (25-34); MEAN CORPUSCULAR HGB CONC 32 g/dL (32-36); MEAN CORPUSCULAR VOLUME 83 fL (80-99); MEAN PLATELET VOLUME 10.1 fL (9.0-12.2); MONOCYTES # (AUTO) 0.3 10^3/uL (0.0-1.0); MONOCYTES % (AUTO) 19 % (0-12); NEUTROPHILS # (AUTO) 0.7 10^3/uL (1.8-7.8); NEUTROPHILS % (AUTO) 46 % (42-75); PLATELET COUNT 96 10^3/uL (130-400)
[2022-10-17 10:24] LABS: WHITE BLOOD COUNT 1.4 10^3/uL (4.3-11.0)
[2022-10-17 10:37] LABS: ALBUMIN 3.1 GM/DL (3.2-4.5); BILIRUBIN,TOTAL 0.4 MG/DL (0.1-1.0); CREATININE SERUM 0.82 MG/DL (0.60-1.30); POTASSIUM 3.5 MMOL/L (3.6-5.0); TOTAL PROTEIN 7.1 GM/DL (6.4-8.2)
[2022-10-24 09:15] LABS: BASOPHILS % (AUTO) 1 % (0-10); EOSINOPHILS % (AUTO) 1 % (0-10); HEMATOCRIT 33 % (40-54); HEMOGLOBIN 10.5 g/dL (13.3-17.7); LYMPHOCYTES # (AUTO) 0.6 10^3/uL (1.0-4.0); LYMPHOCYTES % (AUTO) 19 % (12-44); MEAN CORPUSCULAR HEMOGLOBIN 27 pg (25-34); MEAN CORPUSCULAR HGB CONC 32 g/dL (32-36); MEAN CORPUSCULAR VOLUME 85 fL (80-99); MEAN PLATELET VOLUME 9.3 fL (9.0-12.2); MONOCYTES % (AUTO) 32 % (0-12); NEUTROPHILS # (AUTO) 1.4 10^3/uL (1.8-7.8); NEUTROPHILS % (AUTO) 45 % (42-75); PLATELET COUNT 228 10^3/uL (130-400); WHITE BLOOD COUNT 3.1 10^3/uL (4.3-11.0)
[2022-10-24 09:35] LABS: BILIRUBIN,TOTAL 0.4 MG/DL (0.1-1.0); CALCIUM 8.9 MG/DL (8.5-10.1); CREATININE SERUM 0.82 MG/DL (0.60-1.30); POTASSIUM 3.4 MMOL/L (3.6-5.0); TOTAL PROTEIN 7.2 GM/DL (6.4-8.2)
[2022-11-07 08:58] LABS: BASOPHILS % (AUTO) 1 % (0-10); EOSINOPHILS % (AUTO) 1 % (0-10); HEMATOCRIT 33 % (40-54); HEMOGLOBIN 10.4 g/dL (13.3-17.7); LYMPHOCYTES # (AUTO) 0.4 10^3/uL (1.0-4.0); MEAN CORPUSCULAR HEMOGLOBIN 27 pg (25-34); MEAN CORPUSCULAR HGB CONC 32 g/dL (32-36); MEAN CORPUSCULAR VOLUME 85 fL (80-99); MONOCYTES # (AUTO) 0.4 10^3/uL (0.0-1.0); NEUTROPHILS # (AUTO) 1.3 10^3/uL (1.8-7.8); NEUTROPHILS % (AUTO) 61 % (42-75)
[2022-11-07 09:01] LABS: LYMPHOCYTES % (AUTO) 19 % (12-44); MEAN PLATELET VOLUME 10.1 fL (9.0-12.2); MONOCYTES % (AUTO) 19 % (0-12); PLATELET COUNT 85 10^3/uL (130-400); WHITE BLOOD COUNT 2.2 10^3/uL (4.3-11.0)
[2022-11-07 09:15] LABS: ALBUMIN 3.3 GM/DL (3.2-4.5); BILIRUBIN,TOTAL 0.5 MG/DL (0.1-1.0); CALCIUM 9.1 MG/DL (8.5-10.1); CREATININE SERUM 0.91 MG/DL (0.60-1.30); POTASSIUM 3.6 MMOL/L (3.6-5.0); TOTAL PROTEIN 7.4 GM/DL (6.4-8.2)
[~2022-11-09] MED LIST changes: +D5W 500 ML IV SOLUTION 500 ML IV SCH; +D5W IV SCH; +HEParin (CENTRAL IV FLUSH) 500 UNIT/5 ML SYR IV PRN; +LEUCOVORIN CALCIUM IV SCH; +OXALIPLATIN IV SCH; +PALONOSETRON HCL 0.25 MG, dexAMETHasone INJECTION 20 MG in NS (IVPB) 50 ML IV SCH; +fluorouraciL 4,800 MG in NS (IVPB) 51.2 ML IV SCH
== END | disposition home or self-care (01) ==
LOC: ONC 10-17 09:42
PROVIDERS: ATTEND Internal Medicine Hematology & Oncology
DX: Z51.11 Encounter for antineoplastic chemotherapy (principal); C20 Malignant neoplasm of rectum
CPT/HCPCS: 36591; 80053; 85025; 96368; 96375; 96411; 96413; 96415; 96417

== ENCOUNTER → 2022-11-21 | Outpatient (CLI) | payer MEDICARE, OTHER ==
[~2022-11-21] MED LIST changes: -D5W 500 ML IV SOLUTION 500 ML IV SCH; -D5W IV SCH; -HEParin (CENTRAL IV FLUSH) 500 UNIT/5 ML SYR IV PRN; +HOLD METFORMIN - RECEIVED CONTRAST 20 ML VIAL IV SCH; +IOHEXOL 350 MG/ML 100 ML (OMNIPAQUE 350) VIAL IV ONE; -LEUCOVORIN CALCIUM IV SCH; +NS 100 ML (IVPB) BAG IV ONE; -OXALIPLATIN IV SCH; -PALONOSETRON HCL 0.25 MG, dexAMETHasone INJECTION 20 MG in NS (IVPB) 50 ML IV SCH; -fluorouraciL 4,800 MG in NS (IVPB) 51.2 ML IV SCH
--- NOTE | 2022-11-21 10:28 | Diagnostic Imaging Report ---
EXAMINATION: CT chest, abdomen and pelvis with intravenous contrast. TECHNIQUE: Multiple contiguous axial images were obtained through the chest, abdomen and pelvis after the uneventful administration of intravenous contrast. All CT scans use one or more of the following dose optimizing techniques: automated exposure control, MA and/or KvP adjustment based on patient size and exam type or iterative reconstruction. HISTORY: MALIGNANT TUMOR OF RECTUM COMPARISON: 06/11/2022 FINDINGS: Thyroid: The visualized thyroid gland is normal. Mediastinum: Heart size is normal without significant pericardial effusion. Calcifications of the aorta and coronary vessels. Thoracic aorta is normal in caliber. No suspicious lymphadenopathy. Lungs and airways: The lungs are clear without consolidation, pleural effusion, or pneumothorax. Atelectasis or scarring within the lung bases. Stable subcentimeter bilateral pulmonary nodules measuring up to 0.4 cm on (series 3 image 69). The airways are normal. Solid organs: The liver is normal without focal lesion. There is cholelithiasis with mild gallbladder wall thickening. There may be small stone within the distal common bile duct. Pancreas is normal. Spleen is normal. Adrenal glands are normal. The kidneys are normal without hydronephrosis. Bowel: The stomach and small bowel are normal without obstruction. There are surgical changes from distal colon resection with a left lower quadrant colostomy. The appendix is normal. Peritoneum: There is mild free fluid or stranding within the pelvis. No loculated fluid collection or free air. No suspicious lymphadenopathy. Vasculature: Normal without aneurysm. Musculoskeletal: Degenerative changes of the spine without suspicious osseous lesion or compression fracture. Pelvis: The prostate gland is normal. There is mild diffuse bladder wall thickening. IMPRESSION: 1. No new findings of metastatic disease within the chest, abdomen, or pelvis. 2. Stable subcentimeter bilateral pulmonary nodules. 3. Mild free fluid in the pelvis. 4. Mild bladder wall thickening. This may be secondary to cystitis or post treatment changes. Recommend correlation with urinalysis. 5. Findings of cholelithiasis and choledocholithiasis. There may be mild wall thickening of the gallbladder. Correlation with gallbladder ultrasound if there are any signs or symptoms that would raise concern for acute cholecystitis. Dictated by: Dictated on workstation # [id number]
== END ==
LOC: RAD 09:10
PROVIDERS: ATTEND Internal Medicine Hematology & Oncology
DX: C20 Malignant neoplasm of rectum (principal); R91.8 Other nonspecific abnormal finding of lung field; K80.50 Calculus of bile duct without cholangitis or cholecystitis without obstruction; K80.20 Calculus of gallbladder without cholecystitis without obstruction
CPT/HCPCS: 71260; 74177

== ENCOUNTER 2022-11-28 08:35 | Outpatient (RCR) | payer MEDICARE, OTHER ==
[~2022-11-28 08:35] MED LIST changes: +D5W 500 ML IV SOLUTION 500 ML IV SCH; +D5W IV SCH; +HEParin (CENTRAL IV FLUSH) 500 UNIT/5 ML SYR IV PRN; -HOLD METFORMIN - RECEIVED CONTRAST 20 ML VIAL IV SCH; -IOHEXOL 350 MG/ML 100 ML (OMNIPAQUE 350) VIAL IV ONE; +LEUCOVORIN CALCIUM 500 MG, LEUCOVORIN CALCIUM 200 MG, LEUCOVORIN CALCIUM 100 MG in D5W ... IV SCH; +LEUCOVORIN CALCIUM IV SCH; -NS 100 ML (IVPB) BAG IV ONE; +OXALIPLATIN IV SCH; +PALONOSETRON HCL 0.25 MG, dexAMETHasone INJECTION 20 MG in NS (IVPB) 50 ML IV SCH; +fluorouraciL 4,800 MG in NS (IVPB) 51.2 ML IV SCH
[2022-11-28 09:25] LABS: BASOPHILS % (AUTO) 1 % (0-10); EOSINOPHILS % (AUTO) 1 % (0-10); HEMATOCRIT 32 % (40-54); HEMOGLOBIN 10.2 g/dL (13.3-17.7); LYMPHOCYTES # (AUTO) 0.6 10^3/uL (1.0-4.0); LYMPHOCYTES % (AUTO) 21 % (12-44); MEAN CORPUSCULAR HEMOGLOBIN 28 pg (25-34); MEAN CORPUSCULAR HGB CONC 32 g/dL (32-36); MEAN CORPUSCULAR VOLUME 86 fL (80-99); MEAN PLATELET VOLUME 9.6 fL (9.0-12.2); MONOCYTES # (AUTO) 0.8 10^3/uL (0.0-1.0); MONOCYTES % (AUTO) 29 % (0-12); NEUTROPHILS # (AUTO) 1.3 10^3/uL (1.8-7.8); NEUTROPHILS % (AUTO) 49 % (42-75); PLATELET COUNT 171 10^3/uL (130-400); WHITE BLOOD COUNT 2.7 10^3/uL (4.3-11.0)
[2022-11-28 09:47] LABS: ALBUMIN 3.1 GM/DL (3.2-4.5); BILIRUBIN,TOTAL 0.5 MG/DL (0.1-1.0); CALCIUM 8.9 MG/DL (8.5-10.1); CREATININE SERUM 0.79 MG/DL (0.60-1.30); POTASSIUM 3.5 MMOL/L (3.6-5.0); TOTAL PROTEIN 7.3 GM/DL (6.4-8.2)
== END 2022-12-09 | disposition home or self-care (01) ==
LOC: ONC 08:35
PROVIDERS: ATTEND Internal Medicine Hematology & Oncology
DX: Z45.2 Encounter for adjustment and management of vascular access device (principal); C20 Malignant neoplasm of rectum
CPT/HCPCS: 36591; 80053; 85025

== ENCOUNTER 2023-01-01 09:59 | Outpatient (RCR) | payer MEDICARE, OTHER ==
[~2023-01-01 09:59] MED LIST changes: -D5W 500 ML IV SOLUTION 500 ML IV SCH; -D5W IV SCH; -HEParin (CENTRAL IV FLUSH) 500 UNIT/5 ML SYR IV PRN; -LEUCOVORIN CALCIUM 500 MG, LEUCOVORIN CALCIUM 200 MG, LEUCOVORIN CALCIUM 100 MG in D5W ... IV SCH; -LEUCOVORIN CALCIUM IV SCH; -OXALIPLATIN IV SCH; -PALONOSETRON HCL 0.25 MG, dexAMETHasone INJECTION 20 MG in NS (IVPB) 50 ML IV SCH; -fluorouraciL 4,800 MG in NS (IVPB) 51.2 ML IV SCH
== END 2023-01-09 | disposition home or self-care (01) ==
LOC: ONC 09:59
PROVIDERS: ATTEND Internal Medicine Hematology & Oncology
DX: C20 Malignant neoplasm of rectum (principal)

== ENCOUNTER 2023-01-29 09:50 | Outpatient (RCR) | payer MEDICARE, OTHER | END 2023-02-08 | disposition home or self-care (01) | LOC: ONC 09:50 | PROVIDERS: ATTEND Internal Medicine Hematology & Oncology | DX: Z45.2 Encounter for adjustment and management of vascular access device (principal); C20 Malignant neoplasm of rectum ==

== ENCOUNTER → 2023-02-18 | Outpatient (CLI) | payer MEDICARE, OTHER ==
[~2023-02-18] MED LIST changes: +HOLD METFORMIN - RECEIVED CONTRAST 20 ML VIAL IV SCH; +IOHEXOL 350 MG/ML 100 ML (OMNIPAQUE 350) VIAL IV ONE; +NS 100 ML (IVPB) BAG IV ONE
[2023-02-18 09:33] LABS: CREATININE SERUM 1.04 MG/DL (0.60-1.30)
--- NOTE | 2023-02-18 10:21 | Diagnostic Imaging Report ---
PROCEDURE: CT chest, abdomen, and pelvis with contrast. TECHNIQUE: Multiple contiguous axial images were obtained through the chest, abdomen, and pelvis after the administration of intravenous contrast. Auto Exposure Controls were utilized during the CT exam to meet ALARA standards for radiation dose reduction. INDICATION: Colon carcinoma, follow-up. Comparison is made with prior CT from 11/21/2012. CT CHEST: A left chest wall port has the tip near the SVC right atrial junction. No axillary lymphadenopathy is identified. The lymph nodes in the mediastinum do appear to be somewhat more prominent. The lymph nodes are still not pathologically enlarged but do appear to be larger than prior CT from November. No pericardial fluid is identified. Patient has developed a trace right and small left pleural effusion. There are numerous subcentimeter pulmonary nodules bilaterally. Majority appear to be very similar to prior CT. Nodule right middle lobe may be slightly larger at 7 mm compared with 5 mm but this could be owing to slight differences in slice position. There is also some infiltrate or atelectasis in bilateral lower lobes. CT abdomen and pelvis: No new liver mass is detected. Gallbladder surgically absent. There is no biliary ductal dilatation identified. The pancreas and spleen are unremarkable. No adrenal mass is identified. Kidneys are unremarkable. Aorta is nonaneurysmal. No central retroperitoneal or mesenteric lymphadenopathy is identified. There is a colostomy in the left lower quadrant. There is a small fluid collection in the midline subcutaneous tissues measuring 2.2 x 2.0 cm. Intra-abdominal bowel loops are normal caliber. There is no obstruction. There appear to be post-therapeutic changes in the pelvis. Presacral soft tissue thickening is stable. Bladder is stable. Prostate is enlarged. IMPRESSION: 1. Development of bilateral pleural effusions, slightly greater on the left and minimal bibasilar infiltrates. Bilateral subcentimeter pulmonary nodules appear to be stable apart from perhaps slight increase in size of a right middle lobe nodule. In addition, numerous small lymph nodes in the mediastinum appear to be slightly larger when compared with prior CT from November. Uncertain if this could be metastatic versus reactive and continued close follow-up would be recommended. 2. Postop changes in the abdomen and pelvis. There are post-therapeutic changes. There is a small subcutaneous fluid collection in the midline abdomen which is likely postsurgical. Continued follow-up would be recommended. No definite abdominal or pelvic lymphadenopathy or metastatic disease is detected. Dictated by: Dictated on workstation # [id number]
== END ==
LOC: RAD 08:57
PROVIDERS: ATTEND Internal Medicine Hematology & Oncology
DX: J90 Pleural effusion, not elsewhere classified (principal); R91.8 Other nonspecific abnormal finding of lung field; C20 Malignant neoplasm of rectum
CPT/HCPCS: 36415; 71260; 74177; 82565; 84520

== ENCOUNTER 2023-02-26 09:41 | Outpatient (RCR) | payer MEDICARE, OTHER ==
[~2023-02-26 09:41] MED LIST changes: -HOLD METFORMIN - RECEIVED CONTRAST 20 ML VIAL IV SCH; -IOHEXOL 350 MG/ML 100 ML (OMNIPAQUE 350) VIAL IV ONE; -NS 100 ML (IVPB) BAG IV ONE
== END 2023-03-11 | disposition home or self-care (01) ==
LOC: ONC 09:41
PROVIDERS: ATTEND Internal Medicine Hematology & Oncology
DX: C20 Malignant neoplasm of rectum (principal)

== ENCOUNTER → 2023-04-26 | Outpatient (CLI) | payer MEDICARE, OTHER ==
[~2023-04-26] MED LIST changes: +HOLD METFORMIN - RECEIVED CONTRAST 20 ML VIAL IV SCH; +IOHEXOL 350 MG/ML 100 ML (OMNIPAQUE 350) VIAL IV ONE; +NS 100 ML (IVPB) BAG IV ONE
[2023-04-26 09:20] LABS: BASOPHILS % (AUTO) 0 % (0-10); EOSINOPHILS # (AUTO) 0.3 10^3/uL (0.0-0.3); EOSINOPHILS % (AUTO) 7 % (0-10); HEMATOCRIT 36 % (40-54); LYMPHOCYTES # (AUTO) 0.5 10^3/uL (1.0-4.0); LYMPHOCYTES % (AUTO) 11 % (12-44); MEAN CORPUSCULAR HEMOGLOBIN 26 pg (25-34); MEAN CORPUSCULAR HGB CONC 30 g/dL (32-36); MEAN CORPUSCULAR VOLUME 86 fL (80-99); MEAN PLATELET VOLUME 9.3 fL (9.0-12.2); MONOCYTES # (AUTO) 0.6 10^3/uL (0.0-1.0); MONOCYTES % (AUTO) 12 % (0-12); NEUTROPHILS # (AUTO) 3.3 10^3/uL (1.8-7.8); NEUTROPHILS % (AUTO) 70 % (42-75); PLATELET COUNT 242 10^3/uL (130-400); WHITE BLOOD COUNT 4.8 10^3/uL (4.3-11.0)
[2023-04-26 09:39] LABS: ALBUMIN 3.4 GM/DL (3.2-4.5); BILIRUBIN,TOTAL 0.5 MG/DL (0.1-1.0); CREATININE SERUM 0.94 MG/DL (0.60-1.30); POTASSIUM 3.9 MMOL/L (3.6-5.0)
--- NOTE | 2023-04-26 11:18 | Diagnostic Imaging Report ---
PROCEDURE: CT chest, abdomen, and pelvis with contrast. TECHNIQUE: Multiple contiguous axial images were obtained through the chest, abdomen, and pelvis after the administration of intravenous contrast. Auto Exposure Controls were utilized during the CT exam to meet ALARA standards for radiation dose reduction. INDICATION: Colon carcinoma, follow-up. Correlation is made with prior CT from 02/18/2023. CT CHEST: Left chest wall port has the tip in the SVC right atrial junction. No axillary lymphadenopathy is detected. Previously noted slightly prominent mediastinal lymph nodes appear to be stable to perhaps slightly decreased in size when compared with prior. No hilar lymphadenopathy is detected. No pericardial fluid is detected. Trace bilateral pleural effusions persist. Previously noted pulmonary nodules appear to be stable. In particular, the right middle lobe nodule appears to be stable. There is some infiltrate or atelectasis bilateral lower lobes, similar to prior exam. CT abdomen and pelvis: A tiny low-attenuation lesion in the dome of the right lobe of liver appears stable. No other liver masses are identified. Gallbladder does contain calcification in the region of the wall. Extrahepatic and intrahepatic bile ducts are slightly prominent but no obstructing lesion is seen. The pancreas and spleen are unremarkable. No adrenal mass is identified. Kidneys are unremarkable. Aorta is nonaneurysmal. No central, retroperitoneal or mesenteric lymphadenopathy is detected. There is an ostomy in the left lower quadrant. Postoperative changes in the midline intra-abdominal wall are again noted. Previously noted small fluid collection has resolved. The bladder and prostate are unremarkable. There are postoperative changes pelvis in the region of the rectum with presacral soft tissue thickening, similar to prior exam. No definite pelvic lymphadenopathy is seen. The bony structures are nonacute. IMPRESSION: 1. Stable trace bilateral pleural effusions with bibasilar infiltrates or atelectasis. Previously noted pulmonary nodules are stable as well and no significant thoracic lymphadenopathy is detected. 2. Stable CT of the abdomen and pelvis since 02/18/2023. No definite abdominal or pelvic lymphadenopathy or metastatic disease is detected. Previously noted small fluid collection midline anterior abdominal wall has resolved. Dictated by: Dictated on workstation # [id number]
== END ==
LOC: RAD 09:15
PROVIDERS: ATTEND Internal Medicine Hematology & Oncology
DX: C20 Malignant neoplasm of rectum (principal); R91.1 Solitary pulmonary nodule
CPT/HCPCS: 36415; 71260; 74177; 80053; 82378; 85025

== ENCOUNTER → 2023-07-15 | Outpatient (CLI) | payer MEDICARE, OTHER ==
[~2023-07-15] MED LIST changes: -HOLD METFORMIN - RECEIVED CONTRAST 20 ML VIAL IV SCH
--- NOTE | 2023-07-15 12:37 | Diagnostic Imaging Report ---
EXAMINATION: CT chest, abdomen, and pelvis with intravenous contrast. TECHNIQUE: Multiple contiguous axial images were obtained through the chest, abdomen, and pelvis after the uneventful administration of intravenous contrast. All CT scans use one or more of the following dose optimizing techniques: automated exposure control, MA and/or KvP adjustment based on patient size and exam type or iterative reconstruction. HISTORY: Rectal cancer followup. COMPARISON: 04/26/2023. FINDINGS: Thyroid: The visualized thyroid gland is normal. Mediastinum: Heart size is normal without significant pericardial effusion. Calcifications of the aorta and coronary vessels. Thoracic aorta is normal in caliber. No suspicious lymphadenopathy. Lungs and airways: The lungs are clear without consolidation, pleural effusion, or pneumothorax. Stable bilateral pulmonary nodules measuring up to 0.5 cm in the right upper lobe. No new suspicious pulmonary lesion. The airways are normal. Solid organs: The liver is normal without focal lesion. Multiple layering hyperdense stones within the gallbladder. There is no biliary ductal dilation. Pancreas is normal. Spleen is normal. Adrenal glands are normal. There are left renal sinus cysts which require no followup. There is a nonobstructing 0.3 cm left renal calculus. No hydronephrosis. Bowel: There is no bowel obstruction. There is wall thickening of the rectal stump. Surgical changes from a 4 quadrant colostomy. Surgical changes of the colon and small bowel. The appendix is normal. Peritoneum: Stable presacral soft tissue thickening compared to prior exam. No free fluid or free air. No loculated fluid collection. No suspicious lymphadenopathy. Vasculature: Normal without aneurysm. Musculoskeletal: Degenerative changes of the spine without suspicious osseous lesion or compression fracture. Stable mild fluid seen along the anterior abdominal incision measuring up to 2.2 x 1.3 cm. Pelvis: The prostate gland is normal. Mild diffuse bladder wall thickening. IMPRESSION: 1. Stable bilateral pulmonary nodules compared to prior exam. No new findings of metastatic disease within the chest. 2. Stable post operative changes of the distal colon and rectum. No new findings of metastatic disease within the abdomen or pelvis. 3. Stable presacral soft tissue thickening compared to prior exam. 4. Wall thickening of the rectal stump and bladder. This could be secondary to post treatment changes but infection or an inflammatory process of the latter structure would remain within the differential. Consider correlation with urinalysis. 5. Stable mild fluid along the anterior abdominal midline incision. Dictated by: Dictated on workstation # [id number]
== END ==
LOC: MERGE 10:29 → RAD 10:29
PROVIDERS: ATTEND Internal Medicine Hematology & Oncology
DX: C20 Malignant neoplasm of rectum (principal); R91.8 Other nonspecific abnormal finding of lung field; M79.89 Other specified soft tissue disorders; N32.89 Other specified disorders of bladder; Z98.890 Other specified postprocedural states
CPT/HCPCS: 71260; 74177